=== PATIENT | female | born 1950 | race Caucasian/White ===

== ENCOUNTER → 2020-03-04 11:14 | Outpatient (BNVA) | payer MEDICARE, SELFPAY | PROVIDERS: PCP Internal Medicine; Referring Provider Internal Medicine; Visit Provider Internal Medicine Gastroenterology | DX: K21.9 Gastro-esophageal reflux disease without esophagitis (principal); Z79.899 Other long term (current) drug therapy; Z86.010 Personal history of colon polyps; Z98.890 Other specified postprocedural states | CPT/HCPCS: 99213 ==

== ENCOUNTER 2020-06-26 09:49 | Outpatient (REF) | payer MEDICARE, SELFPAY ==
--- NOTE | ~2020-06-26 | XR_ITS ---
EXAMINATION: XR CHEST CLINICAL INFORMATION: Shortness of breath COMPARISON: Chest 10/18/2018 TECHNIQUE: 2 views of the chest were obtained. FINDINGS: The lungs are well-expanded and clear of acute process. The heart size and pulmonary vascularity is normal. There are pacer electrodes in right atrium and right ventricle. There is anterior cervical fusion with a metallic plate and screws. XR/XR chest 2V IMPRESSION: Unremarkable chest exam. No major change from 10/18/2018.
[2020-06-26 11:38] LABS: Hematocrit 41.3 % (37-47); Hemoglobin 13.4 g/dl (12.0-16.0); Mean Corpuscular HGB Conc 32.4 g/dl (31.0-35.0); Mean Corpuscular Hemoglobin 32.8 pg (27.0-33.0); Mean Platelet Volume 10.3 fL (9.4-12.3); Platelet Count 299 X10*3/uL (160-400); Red Blood Count 4.09 X10*6/uL (4.20-5.50); Red Cell Distribution Width 11.9 % (11.0-16.0)
[2020-06-26 12:00] LABS: B Type Natriuretic Peptide 111 pg/mL (<100)
[2020-06-26 12:04] LABS: Anion Gap 12 (12-20); Blood Urea Nitrogen 14 mg/dL (9-16); Calcium 9.2 mg/dL (8.4-10.2); Carbon Dioxide 30 mmol/L (22-29); Chloride 105 mmol/L (96-108); Estimated Glomerular Filt Rate > 60; Glucose Random 100 mg/dL (60-115); Potassium 4.6 mmol/L (3.3-5.1); Sodium 142 mmol/L (135-145)
== END 2020-06-26 09:50 | disposition home or self-care (01) ==
LOC: HO.LAB 09:49
PROVIDERS: PCP Internal Medicine; Visit Provider Internal Medicine Cardiovascular Disease
DX: R06.02 Shortness of breath (principal); I10 Essential (primary) hypertension; I48.0 Paroxysmal atrial fibrillation; I49.5 Sick sinus syndrome; K21.9 Gastro-esophageal reflux disease without esophagitis; D12.6 Benign neoplasm of colon, unspecified; R42 Dizziness and giddiness; Z88.5 Allergy status to narcotic agent; Z88.0 Allergy status to penicillin; Z88.8 Allergy status to other drugs, medicaments and biological substances; Z91.012 Allergy to eggs; Z86.73 Personal history of transient ischemic attack (TIA), and cerebral infarction without residual deficits; Z95.0 Presence of cardiac pacemaker; Z79.899 Other long term (current) drug therapy
CPT/HCPCS: 36415; 71046; 80048; 83880; 85027; 93005; 99212

== ENCOUNTER 2020-07-05 10:46 | Outpatient (REF) | payer MEDICARE, SELFPAY ==
--- NOTE | 2020-07-05 13:07 | PFT_ITS ---
FLOWS: FEV1 of 77% of predicted at 1.67 L. FVC 76% of predicted at 2.18 L. FEV1 to FVC ratio of 0.77. No bronchodilator response. LUNG VOLUMES: Total lung capacity 98% of predicted at 4.84 L. Residual volume 123% of predicted at 2.66 L. Slow vital capacity 79% of predicted at 2.18 L. Expiratory reserve volume 15% of predicted at 0.1 L. Diffusion capacity is moderately decreased, diffusion capacity adjust to being mildly decreased after correction for alveolar ventilation. IMPRESSION: No obstructive or restrictive ventilatory defect. No bronchodilator response. Increased residual volume suggests air trapping. Decreased expiratory reserve volume suggests extrathoracic restriction likely secondary to abdominal obesity. Decreased diffusion capacity suggests emphysema. MD ANTONIA Choudhary/MODL / [id number]
== END 2020-07-05 10:47 | disposition home or self-care (01) ==
LOC: HO.RESP 10:46
PROVIDERS: PCP Internal Medicine; Visit Provider Internal Medicine Cardiovascular Disease
DX: R06.02 Shortness of breath (principal)
CPT/HCPCS: 94060; 94727; 94729

== ENCOUNTER → 2020-08-05 10:01 | Outpatient (BNVA) | payer MEDICARE, SELFPAY | PROVIDERS: PCP Internal Medicine; Visit Provider Internal Medicine Pulmonary Disease | DX: J43.9 Emphysema, unspecified (principal); R91.8 Other nonspecific abnormal finding of lung field | CPT/HCPCS: 99202 ==

== ENCOUNTER → 2020-08-07 08:26 | Outpatient (REF) | payer MEDICARE, SELFPAY ==
--- NOTE | ~2020-08-07 | NM_ITS ---
Myocardial perfusion study Indication: Shortness of breath evaluate for myocardial ischemia Technique: The patient was brought in for a Lexiscan perfusion study on 08/07/2020. Patient performed low-level exercise and was injected 0.4 mg of Lexiscan intravenously. Within a minute of injection, 25 mCi of sestamibi was given intravenously. Images were obtained using the SPECT gamma camera interlaced with the gating device. Images were obtained in supine position. Resting perfusion study was performed on 08/08/2020. Patient was administered 25 mCi of sestamibi intravenously at rest. Images were then obtained in supine position. Images obtained with and without CT attenuation. Total DLP 72 mGy-cm. Images were processed with the software and compared side to side in short axis, horizontal long axis and vertical long axis views. Findings: The stress perfusion study showed normal uptake of radiotracer in all segments of LV myocardium on attenuated as well as non attenuated corrected images. The gated study shows normal LV systolic function with calculated LVEF of greater than 70 %. LV cavity is normal in size. The gated study shows normal systolic wall thickening and contraction of segments. Resting study shows no change in perfusion pattern compared to stress perfusion study. Gating at rest reveals normal systolic wall motion with ejection fraction at greater than 70 %. The findings are consistent with normal myocardial perfusion. NM/NM phil perf SPECT rest & str Impression: 1. Myocardial perfusion imaging study shows normal myocardial perfusion 2. Gated LVEF is greater than 70% 3. Transient ischemic dilatation not present EKG is nondiagnostic for ischemia
--- NOTE | 2020-08-07 08:28 | CA_ITS ---
Transthoracic Echocardiogram Patient (Last, First, Middle): Charlotte Mcgovern M Gender: Female Date of : 1950 Age: 70 Procedure Date: 08/07/2020 Procedure Type: Transthoracic Echocardiogram Location: OP Height: 160.02 cm Weight: 70.76 kg BSA: 1.74 m2 Heart Rate: bpm BP: 136 / 92 mmHg Extrusion Press Adjuster: GORDY Referring MD: Alan Dixon MD Symptoms: R06.02 - Shortness of breath Study Quality: Good ECG Rhythm: Sinus Conclusions: - The left ventricular systolic function is normal. The visually estimated ejection fraction is between 65-70%. - There is mild mitral annular calcification. - There is mild tricuspid valve regurgitation. - Mild pulmonary hypertension is present. - Small plaque is seen in the ascending aorta. Findings Left Ventricle Normal left ventricular cavity size. There is normal left ventricular wall thickness. The left ventricular systolic function is normal. The visually estimated ejection fraction is between 65-70%. There is no evidence of regional wall motion abnormalities. E/E prime ratio is between 8 and 15 consistent with indeterminate filling pressures. Evidence suggests grade I (mild) diastolic dysfunction. There is mild focal hypertrophy of the basal septum. Right Ventricle Normal right ventricular cavity size and systolic function. There is a pacemaker wire seen in the right ventricle. Atria Both atria are normal in size. Aortic Valve There is a normal trileaflet aortic valve. There is no aortic valve stenosis. There is no aortic valve regurgitation. Mitral Valve There is mild mitral annular calcification. There is trace mitral valve regurgitation. There is no mitral valve stenosis. Pulmonic Valve The pulmonic valve was not well visualized. There is trace pulmonic valve regurgitation. Tricuspid Valve Normal tricuspid valve structure. There is mild tricuspid valve regurgitation. The right ventricular systolic pressure is 37 mmHg. Mild pulmonary hypertension is present. Great Vessels The aortic annulus, sinuses of valsalva, and asc aorta are normal in size. Small plaque is seen in the ascending aorta. Venous The inferior vena cava is normal in size and collapses greater than 50% with inspiration. Pericardium/Pleural There is no evidence of pericardial effusion. Prior Study Comparison Changes noted compared to prior study dated: 07/14/2018. RVSP is higher. Measurements 2D Linear Measurements IVSd: 0.89 0.6-0.9/0.6-1.0 cm LVIDd: 4.27 3.9-5.3/4.2-5.9 cm LVIDd Index: 2.45 2.4-3.2/2.2-3.1 cm/m2 LVIDs: 2.45 2.0-3.6 cm LVPWd: 0.86 0.7-1.1 cm Ao Root: 2.90 2.1-3.5 cm LA Diam: 3.50 2.7-3.8/3.0-4.0 cm LAIDs Index: 2.01 1.5-2.3 cm/m2 LV Mass: 145.36 67-162/88-224 g LV Mass Index: 83.54 43-95/49-115 g/m2 LVOT Diam: 2.00 3.0+(-)1.3 cm 2D Systolic Function EF 4C: 65.30 >55% EF 2C: 69.10 >55% EF BiP: 67.50 >55% Mitral Valve MV Pk E: 0.86 MV PK A: 1.07 MV Decel Time: 321.00 E/A: 0.80 E'Lateral: 8.16 E'Medial: 7.72 E/E' Med: 11.10 E/E' Lat: 10.50 PHT: 94.00 MVA PHT: 2.34 Decel Upton: 2.67 Aortic Valve AoV Pk Darren: 1.42 AoV Mn Darren: 1.05 AoV VTI: 0.33 AoV Pk Grad: 8.00 Aov Mn Grad: 5.00 NIRMAL Cont.VTI: 2.47 LVOT LVOT Pk Darren: 1.13 LVOT Mn Darren: 0.76 LVOT VTI: 0.26 LVOT Pk Grad: 5.00 LVOT Mn Grad: 3.00 LVOT Diam: 2.00 LVOT Area: 3.14 Diastolic Function MV Pk E: 0.86 MV Pk A: 1.07 E/A: 0.80 E'Medial: 7.72 E/E' Med: 11.10 E' Laterial: 8.16 E/E' Lat: 10.50 Tricuspid Valve TR Pk Darren: 2.92 TR Pk Grad: 34.00 RA Press: 3.00 RVSP: 37.00 Great Vessels Aorta Ao Root-2D: 2.90 2.0-3.7 cm Ao Asc: 2.90 2.1-3.4 cm Ao Arch: 3.00 Updated in Other Vendor System with Status of Final Alfred Porter MD electronically signed on 08/09/2020 12:02:02 PM with status of Final
--- NOTE | 2020-08-07 08:28 | CA_ITS ---
Acquisition Time: 2020-08-07 09:34:58 Total Exercise Time: 00:02:00 Test Indications: SOB, AFIB, FATIGUE Medications: SEE CHART Protocol: LEXISCAN Max HR: 110 BPM 73% of Pred: 149 BPM Max BP: 144/072 mmHG Max Work Load: 1.6 METS Pharmacological stress test using Lexiscan. Pt tolerated well. Denies any anginal sx. EKG without arrhythmias, non-diagnostic for ischemia. Nuclear images to follow. Normotensive response to test. Test reviewed with Dr. Porter Referred By: Alan Dixon Overread By: Marium West NP
== END ==
LOC: HO.CARD 08:26
PROVIDERS: PCP Internal Medicine; Visit Provider Internal Medicine Cardiovascular Disease
DX: R06.02 Shortness of breath (principal)
CPT/HCPCS: 78452; 93017; 93306; A9500; J0280; J2785

== ENCOUNTER 2020-08-14 10:36 | Outpatient (REF) | payer MEDICARE, SELFPAY ==
--- NOTE | ~2020-08-14 | CT_ITS ---
EXAMINATION: CT CHEST WITHOUT CONTRAST CLINICAL INFORMATION: Other nonspecific abnormal finding of lung field COMPARISON: Previous chest x-ray most recent June 2020 TECHNIQUE: Multidetector volumetric CT imaging of the chest was done. Axial MIP volume rendering provided. Sagittal and coronal reformatted images were obtained. This CT examination was performed using dose optimization techniques as appropriate, variously including the following: *Automated exposure control *Adjustment of mA and/or kV according to patient size (this includes techniques or standardized protocols for targeted exams where dose is matched to indication/reason for exam; i.e. extremities or head) *Use of iterative reconstruction technique DLP: 259 mGy-cm FINDINGS: LUNGS: There is a 2 mm left lower lobe nodule axial image 212 series 4. There is a 2 mm peripheral or subpleural left lower lobe nodule adjacent to the fissure axial image 217 series 4. There is minimal thickening along the right major fissure for example axial image 212 series 4. The lungs are otherwise clear. No evidence of emphysema interstitial lung disease or bronchiectasis is seen. No endobronchial or endotracheal lesion is seen. MEDIASTINUM: The heart does not appear enlarged. There is a left subclavian dual chamber pacemaker. There is no pericardial effusion. There is mild coronary artery calcification. The thoracic aorta is normal in caliber. There are small mediastinal lymph nodes. There are no enlarged hilar or mediastinal lymph nodes. The esophagus is unremarkable. PLEURA: There is no pleural effusion. No pleural mass or thickening. AXILLA: No lymphadenopathy. UPPER ABDOMEN: There is fatty infiltration of the pancreas. There is a small 5 mm low-attenuation lesion in the lateral segment of the left lobe of liver axial image 41 series 2. OSSEOUS STRUCTURES: There are mild degenerative changes of the spine. CT/CT chest wo con IMPRESSION: Small pulmonary nodules. According to the UPDATED 2017 Fleischner Society recommendations, the advised follow-up imaging for less than 6 mm nodule: Low risk, no chest CT follow-up and high risk, optional chest CT follow-up in one year. Left subclavian pacemaker. Mild coronary artery calcification. Fatty infiltration of the pancreas.
== END 2020-08-14 10:37 | disposition home or self-care (01) ==
LOC: HO.CT 10:36
PROVIDERS: Visit Provider Internal Medicine Pulmonary Disease
DX: R91.8 Other nonspecific abnormal finding of lung field (principal)
CPT/HCPCS: 71250

== ENCOUNTER → 2020-08-19 13:02 | Outpatient (BNVA) | payer MEDICARE, SELFPAY | PROVIDERS: PCP Internal Medicine; Visit Provider Internal Medicine Cardiovascular Disease | DX: Z45.018 Encounter for adjustment and management of other part of cardiac pacemaker (principal); R42 Dizziness and giddiness; R06.02 Shortness of breath; I48.0 Paroxysmal atrial fibrillation | CPT/HCPCS: 93005; 99212 ==

== ENCOUNTER → 2020-08-23 13:04 | Outpatient (BNVA) | payer MEDICARE, SELFPAY | PROVIDERS: PCP Internal Medicine; Visit Provider Internal Medicine Pulmonary Disease | DX: R06.02 Shortness of breath (principal) | CPT/HCPCS: 99212 ==

== ENCOUNTER → 2020-09-17 13:02 | Outpatient (BNVA) | payer MEDICARE, SELFPAY | PROVIDERS: PCP Internal Medicine; Visit Provider Internal Medicine Pulmonary Disease | DX: R06.02 Shortness of breath (principal) | CPT/HCPCS: 99212 ==

== ENCOUNTER → 2021-03-03 12:58 | Outpatient (BNVA) | payer MEDICARE, SELFPAY | PROVIDERS: PCP Internal Medicine; Referring Provider Internal Medicine; Visit Provider Internal Medicine Cardiovascular Disease | DX: Z45.018 Encounter for adjustment and management of other part of cardiac pacemaker (principal); I48.0 Paroxysmal atrial fibrillation; R06.02 Shortness of breath | CPT/HCPCS: 93005; 99212 ==

== ENCOUNTER → 2021-05-12 11:14 | Outpatient (BNVA) | payer MEDICARE, SELFPAY | PROVIDERS: PCP Internal Medicine; Referring Provider Internal Medicine; Visit Provider Internal Medicine Gastroenterology | DX: Z13.89 Encounter for screening for other disorder (principal) | CPT/HCPCS: 99212 ==

== ENCOUNTER 2021-05-13 11:32 | Outpatient (REF) | payer MEDICARE, SELFPAY ==
[2021-05-13 13:49] LABS: MANUAL DIFF FLAG NO
[2021-05-13 14:03] LABS: Basophils Percent Auto 0.5 % (0-2); Eosinophils Absolute Auto 0.1 X10*3/uL (0.0-0.4); Eosinophils Percent Auto 1.5 % (0-4); Hematocrit 39.7 % (37.0-47.0); Imm Gran Abs Auto 0.02 X10*3/uL (0.00-0.03); Imm Gran Pct Auto 0.2 % (0.0-0.4); Lymphocytes Absolute Auto 3.3 X10*3/uL (1.2-4.9); Lymphocytes Percent Auto 37.3 % (20-40); Mean Corpuscular HGB Conc 32.7 g/dl (31.0-35.0); Mean Corpuscular Hemoglobin 33.1 pg (27.0-33.0); Mean Platelet Volume 10.4 fL (9.4-12.3); Monocytes Percent Auto 11.3 % (2-11); Neutrophils Absolute Auto 4.4 x10*3/uL (2.0-8.3); Neutrophils Percent Auto 49.2 % (45-73); Platelet Count 285 X10*3/uL (160-400); Red Blood Count 3.93 X10*6/uL (4.20-5.50); Red Cell Distribution Width 12.2 % (11.0-16.0); White Blood Count 8.8 X10*3/uL (4.8-10.8)
[2021-05-13 14:20] LABS: Anion Gap 12 (12-20); Blood Urea Nitrogen 15 mg/dL (9-16); Calcium 9.5 mg/dL (8.4-10.2); Carbon Dioxide 28 mmol/L (22-29); Chloride 105 mmol/L (96-108); Estimated Glomerular Filt Rate > 60; Glucose Random 102 mg/dL (60-115); Potassium 4.2 mmol/L (3.3-5.1); Sodium 141 mmol/L (135-145)
[2021-05-13 14:34] LABS: Vitamin D 25-OH Total 31.8 ng/mL (>30)
[2021-05-13 14:47] LABS: Folate > 20.0 ng/mL (> or = 4.0); Vitamin B12 460 pg/mL (200-900)
== END 2021-05-13 11:33 | disposition home or self-care (01) ==
LOC: HO.HMGCLDS 11:32
PROVIDERS: PCP Internal Medicine; Visit Provider Internal Medicine Gastroenterology
DX: K21.9 Gastro-esophageal reflux disease without esophagitis (principal); R06.02 Shortness of breath
CPT/HCPCS: 36415; 80048; 82306; 82607; 82746; 85025

== ENCOUNTER → 2021-09-02 12:31 | Outpatient (BNVA) | payer MEDICARE, SELFPAY | PROVIDERS: PCP Internal Medicine; Referring Provider Internal Medicine; Visit Provider Internal Medicine Cardiovascular Disease | DX: Z45.018 Encounter for adjustment and management of other part of cardiac pacemaker (principal); I48.0 Paroxysmal atrial fibrillation; I25.10 Atherosclerotic heart disease of native coronary artery without angina pectoris | CPT/HCPCS: 93280; 99212 ==

== ENCOUNTER → 2021-09-11 11:28 | Outpatient (BNVA) | payer MEDICARE, SELFPAY | PROVIDERS: PCP Internal Medicine; Referring Provider Internal Medicine; Visit Provider Internal Medicine Gastroenterology | DX: Z12.11 Encounter for screening for malignant neoplasm of colon (principal); K59.09 Other constipation; K21.9 Gastro-esophageal reflux disease without esophagitis; D12.6 Benign neoplasm of colon, unspecified; R13.14 Dysphagia, pharyngoesophageal phase; R07.89 Other chest pain | CPT/HCPCS: 99212 ==

== ENCOUNTER 2021-10-29 08:54 | Outpatient (REF) | payer MEDICARE, SELFPAY ==
--- NOTE | ~2021-10-29 | FL_ITS ---
EXAMINATION: FL BARIUM SWALLOW CLINICAL INFORMATION: Dysphagia COMPARISON: None TECHNIQUE: Barium swallow examination is performed using fluoroscopic evaluation in addition to multiple fluoroscopic spot views. The patient is imaged both upright and prone and using both thick and thin sulfate along with effervescent granules. Fluoroscopy time: 1.6 minutes DAP: 4.110 Gy-cm2 Images: 37 FINDINGS: Following oral administration of thick barium, barium-coated turkey, there is normal propagation of bolus from the oral cavity through the pharynx, esophagus into stomach without any evidence of obstruction, narrowing or stricture. There is a ventral plate and screws from C3 to C4 and C4 through C6 vertebra but no obstruction seen. No laryngeal penetration or aspiration seen. There are dual pacer electrodes in right atrium and right ventricle. FL/FL barium swallow IMPRESSION: Unremarkable barium swallow exam. No obstruction, narrowing or stricture seen.
== END 2021-10-29 08:55 | disposition home or self-care (01) ==
LOC: HO.XRAY 08:54
PROVIDERS: PCP Internal Medicine; Visit Provider Internal Medicine Gastroenterology
DX: R13.14 Dysphagia, pharyngoesophageal phase (principal); R07.89 Other chest pain
CPT/HCPCS: 74220

== ENCOUNTER 2021-11-11 11:33 | Day surgery (SDC) | payer MEDICARE, SELFPAY ==
--- NOTE | 2021-11-10 12:18 | P.CONAN_ITS ---
Documented by User: Rocío Mcbride NP 11/10/21 12:25 HPI - Anesthesia Eval Consult details Narrative: 71yo F for Upper Endoscopy Pacer in situ Xarelto for PAF - ok to hold per cardiol Per cardiology OV note 08/2021, chest pain likely non-cardiac and pursue GI w/u. [facility] Active Problems Active Problems: All Active Problems (Updated 09/12/21 @ 17:33 by Florentin Faria MD) Chest pain, atypical (Acute) Dysphagia, pharyngoesophageal phase (Acute) CAD (coronary artery disease) (Acute) Chronic constipation (Acute) Pulmonary nodules (Acute) Dizziness (Acute) SOB (shortness of breath) (Acute) HTN (hypertension) (Acute) Paroxysmal atrial fibrillation (Acute) Cardiac pacemaker in situ (Acute) Gastroesophageal reflux disease (Acute) Tubular adenoma of colon (Acute) Screening for colon cancer (Acute) Past Medical History Medical History CAD (coronary artery disease) Cardiac pacemaker in situ CVA (cerebral vascular accident) Gastroesophageal reflux disease HTN (hypertension) Paroxysmal atrial fibrillation Pulmonary nodules Screening for colon cancer Sick sinus syndrome Tubular adenoma of colon Family History Family History Father CHF (congestive heart failure) CVA (cerebral vascular accident) Diabetes Chronic lung disease Cancer Mother CVD (cardiovascular disease) SLE exacerbation Sister Alcoholic pancreatitis Brother A-fib Daughter Morbidly obese IBS (irritable bowel syndrome) Surgical History Surgical History H/O esophagogastroduodenoscopy H/O tubal ligation History of cardiac catheterization (~2011) History of carpal tunnel release History of permanent cardiac pacemaker placement (~10/2018) Hx of cholecystectomy Hx of colonoscopy Social History Social History Alcohol intake: current Alcohol intake frequency: 0-2 drinks per day Alcohol type: wine Patient Tobacco Use Status: Former Tobacco user Quit Date: 1997 Use of substances other than those prescribed or required for medical reasons: No Are you DNR?: No Advance Directives: No Advance Directives Information Provided: Yes Meds Allergies Allergy/AdvReac Type Severity Reaction Status Date / Time Penicillins Allergy Severe ANAPHYLAXIS Verified 09/11/21 11:32 codeine [Codeine] Allergy Intermediate SEVERE Verified 09/11/21 11:32 VOMITING, vomiting ciprofloxacin [CIPROFLOXACIN] Allergy Unknown ANAPHYLAXIS Verified 09/11/21 11:32 neomycin [NEOMYCIN] Allergy Unknown BURNING Verified 09/11/21 11:32 SENSATION Home Medications Medication Instructions Recorded Confirmed Last Taken Type levothyroxine 25 mcg tablet 25 mcg PO DAILY 03/04/20 09/11/21 Unknown History valacyclovir 1 gram tablet 1,000 mg PO DAILY 03/04/20 09/11/21 Unknown History cholecalciferol (vitamin D3) 25 25 mcg PO DAILY 06/26/20 09/11/21 Unknown History mcg (1,000 unit) capsule atorvastatin 10 mg tablet 10 mg PO DAILY 03/03/21 09/11/21 Unknown History Exam Exam Date and Time: November 10, 2021 1218 Narrative Narrative: Cardiac Device Check 08/2021 Details: Dual-chamber [employer] pacemaker in place.? Programmed in DDDR at 60 beats per minute.? Atrial pacing 88% of time.? Few brief episodes of atrial fibrillation noted, overall burden less than 1% with longest episode lasting 18 minutes.? No symptoms.? Atrial pacing thresholds adequate and in our capture mode.? Ventricular pacing thresholds excellent and reprogrammed to enhance battery life.? Atrial ventricular sensing is adequate.? Pacing lead impedance is stable.? Battery life is excellent at 9 years EKG 02/2021 atrially paced, ventricularly sensed rhythm Assessment and Plan Assessment Anesthesia Assessment: Chart Reviewed Documented by User: Jose Kilgore MD 11/13/21 09:32 [facility] Past Medical History Medical History CAD (coronary artery disease) Cardiac pacemaker in situ CVA (cerebral vascular accident) Gastroesophageal reflux disease HTN (hypertension) Paroxysmal atrial fibrillation Pulmonary nodules Screening for colon cancer Sick sinus syndrome Tubular adenoma of colon Family History Family History Father CHF (congestive heart failure) CVA (cerebral vascular accident) Diabetes Chronic lung disease Cancer Mother CVD (cardiovascular disease) SLE exacerbation Sister Alcoholic pancreatitis Brother A-fib Daughter Morbidly obese IBS (irritable bowel syndrome) Family history of problems with anesthesia: No Surgical History Surgical History H/O esophagogastroduodenoscopy H/O tubal ligation History of cardiac catheterization (~2011) History of carpal tunnel release History of permanent cardiac pacemaker placement (~10/2018) Hx of cholecystectomy Hx of colonoscopy History of Problems with Anesthesia: No Social History Social History Alcohol intake: current Alcohol intake frequency: 0-2 drinks per day Alcohol type: wine Patient Tobacco Use Status: Former Tobacco user Quit Date: 1997 Use of substances other than those prescribed or required for medical reasons: No Are you DNR?: No Advance Directives: No Advance Directives Information Provided: Yes Meds Allergies Allergy/AdvReac Type Severity Reaction Status Date / Time Penicillins Allergy Severe ANAPHYLAXIS Verified 09/11/21 11:32 codeine [Codeine] Allergy Intermediate SEVERE Verified 09/11/21 11:32 VOMITING, vomiting ciprofloxacin [CIPROFLOXACIN] Allergy Unknown ANAPHYLAXIS Verified 09/11/21 11:32 neomycin [NEOMYCIN] Allergy Unknown BURNING Verified 09/11/21 11:32 SENSATION Home Medications Medication Instructions Recorded Confirmed Last Taken Type levothyroxine 25 mcg tablet 25 mcg PO DAILY 03/04/20 09/11/21 Unknown History valacyclovir 1 gram tablet 1,000 mg PO DAILY 03/04/20 09/11/21 Unknown History cholecalciferol (vitamin D3) 25 25 mcg PO DAILY 06/26/20 09/11/21 Unknown History mcg (1,000 unit) capsule atorvastatin 10 mg tablet 10 mg PO DAILY 03/03/21 09/11/21 Unknown History Exam Airway Mallampati Class: II TM Dist: >3cm Loose/Missing/Broken Teeth: Yes Assessment and Plan Assessment Anesthesia Assessment: Anesthesia Plan Discussed Final Anesthetic Review Family History of Problems with Anesthesia: No History of Problems with Anesthesia: No NPO: Yes ASA Class: III Final Preanesthetic Review: No Changes in Pt Med Stat, Meds/Allgs Chart Reviewed, Consent Obtained/Reviewed and Anes Risks/Benef Reviewed Patient Risk: Intermediate Procedure Risk: Low Anesthetic Plan Anesthetic Plan: MAC: Disposition: Standard PACU
[2021-11-11 11:52] VITALS: BMI 28.0
[2021-11-11 11:55] VITALS: BP 135/87; PULSE 70; RESP 18; TEMP 36.3; O2SAT 97
[2021-11-11] MEDS: Lactated Ringers 1,000 ML 50 ML IVCONT (12:03)
--- NOTE | 2021-11-11 12:57 | MHC.SHP ---
Pre-Procedural Eval Section A Date of Service: 11/11/21 The patient is an INPATIENT: No The History & Physical has been completed within 30 days and I have reviewed it.: No Section B Chief Complaint: Other chest pain,Dysphagia, pharyngoesophageal Details of Present Illness: dysphagia, chest pain Relevant Family History (Specify if Yes): No Relevant Social History: None Present Medications: see Short Stay Collaborative assessment Medical History: Significant History (CAD (coronary artery disease) Cardiac pacemaker in situ CVA (cerebral vascular accident) Gastroesophageal reflux disease HTN (hypertension) Paroxysmal atrial fibrillation Screening for colon cancer Sick sinus syndrome Tubular adenoma of colon) History of Previous Operations: Relevant previous surgery/procedure and date(s) (H/O esophagogastroduodenoscopy H/O tubal ligation History of cardiac catheterization (~2011) History of carpal tunnel release History of permanent cardiac pacemaker placement (~10/2018) Hx of cholecystectomy Hx of colonoscopy) Allergies: Allergies Allergy/AdvReac Type Severity Reaction Status Date / Time Penicillins Allergy Severe ANAPHYLAXIS Verified 09/11/21 11:32 codeine [Codeine] Allergy Intermediate SEVERE Verified 09/11/21 11:32 VOMITING, vomiting ciprofloxacin [CIPROFLOXACIN] Allergy Unknown ANAPHYLAXIS Verified 09/11/21 11:32 neomycin [NEOMYCIN] Allergy Unknown BURNING Verified 09/11/21 11:32 SENSATION Review of Systems Sugical H&P ROS: Negative: Constitution, Cardiovascular and Respiratory and Yes, Specify: Gastrointestinal (dysphagia) Exam Surgical H&P Exam: Normal: Heart, Normal: Lungs, Normal: Extremities and Normal: Abdomen Plan Diagnosis/Plan: Unchanged I have reviewed the history and physical and performed a pertinent physical examination on my patient. No changes have occurred unless specified.
--- NOTE | 2021-11-11 13:51 | P.BOP_ITS ---
Brief Operative Note Date of Service: 11/11/21 Pre-op diagnosis: Atypical CP, dysphagia Post-op diagnosis: other (GERD, gastritis, multiple gastric polyps) Procedure: FLEXIBLE TRANSORAL UPPER GASTROINTESTINAL ENDOSCOPY WITH BIOPSIES AND ESOPHAGEAL BALLOON DILATION Consent: Indications for the procedure and potential complications of bleeding, perforation, reaction to medications and missed diagnosis were discussed with the patient and informed consent was obtained. Instrument: Olympus GIF H 190 mid size upper endoscope Monitoring: Vital signs and clinical assessment, continuous EKG monitoring, Pulse oximetry, Carbon Dioxide monitoring and blood pressure monitoring were done throughout the procedure. Procedure: The patient was placed in the left lateral decubitis position and pre-procedure medications were administered and a bite block was placed. The endoscope was inserted into the mouth and advanced under direct vision to the third part of duodenum. A careful inspection was made as the upper endoscope was withdrawn including a retroflexed examination of the proximal stomach; Findings and interventions are described below. Findings: Larynx: Normal Esophagus: GE junction at 38 cms. No stricture, ring, esophagitis or Owens's. Biopsies Were obtained from proximal esophagus to check for EOE. Esophageal balloon dilation was performed with a 20 mm (60 F) CRE balloon X 60 sec Stomach: Multiple 1 to 2 cms benign appearing polyps in the gastric body and fundus - biopsied. Mild gastric erythema. Biopsies were obtained. Grade 2 flap valve on retroflexed examination of the cardia. Duodenum: Normal bulb and descending duodenum Intervention: Biopsies and esophageal balloon dilation as noted above Impression and Post Procedure Diagnosis: Endoscopy Findings: ESOPHAGUS: GE junction at 38 cms. No stricture, ring, esophagitis or Owens's. Biopsies Were obtained from proximal esophagus to check for EOE. Esophageal balloon dilation was performed with a 20 mm (60 F) CRE balloon X 60 sec STOMACH: Gastritis and multiple gastric polyps Plan: Await pathology results Patient has an appointment on 02/05/22 in the GI Clinic with Florentin Faria M.D. Above findings were reviewed with the patient and [GERD] and [Gastritis] handouts were given in the discharge area Surgeon: Florentin Faria MD Anesthesia: MAC Was an Simulation Software Engineer used for this Procedure?: Yes Simulation Software Engineer: Shahida Stein Estimated blood loss (mL): 0 Pathology: other (A. antral bxs, R/O H. pylori B. gastric polyps C. proximal esophagus, R/O EoE) Condition: stable Disposition: PACU
[2021-11-11 14:16] VITALS: BP 120/49; PULSE 70; RESP 16; TEMP 36.4; O2SAT 98
[2021-11-11 14:31] VITALS: BP 115/74; PULSE 70; RESP 17; TEMP 36.4; O2SAT 98
--- NOTE | 2021-11-11 17:00 | P.OP_ITS ---
Operative Note Operative Note Date of Service: 11/11/21 Narrative: Pre-op diagnosis: Atypical CP, dysphagia Post-op diagnosis:?other (GERD, gastritis, multiple gastric polyps) Procedure: FLEXIBLE TRANSORAL UPPER GASTROINTESTINAL ENDOSCOPY WITH BIOPSIES AND ESOPHAGEAL BALLOON DILATION Consent:?Indications for the procedure and potential complications of bleeding, perforation, reaction to medications and missed diagnosis were discussed with the patient and informed consent was obtained. Instrument:?Olympus GIF H 190 mid size upper endoscope Monitoring: Vital signs and clinical assessment, continuous EKG monitoring, Pulse oximetry, Carbon Dioxide monitoring and blood pressure monitoring were done throughout the procedure. Procedure:?The patient was placed in the left lateral decubitis position and pre-procedure medications were administered and a bite block was placed. The endoscope was inserted into the mouth and advanced under direct vision to the third part of duodenum. A careful inspection was made as the upper endoscope was withdrawn including a retroflexed examination of the proximal stomach; Findings and interventions are described below. Findings: Larynx:? Normal Esophagus: GE junction at 38 cms. No stricture, ring, esophagitis or Owens's. Biopsies ? Were obtained from proximal esophagus to check for EOE.? Esophageal balloon dilation was performed with a 20 mm (60 F) CRE balloon X 60 sec Stomach: Multiple 1 to 2 cms benign appearing polyps in the gastric body and fundus - biopsied. Mild gastric erythema. Biopsies were obtained. Grade 2 flap valve on retroflexed examination of the cardia. Duodenum: Normal bulb and descending duodenum Intervention: Biopsies and? esophageal balloon dilation as noted above Impression and Post Procedure Diagnosis: Endoscopy Findings: ESOPHAGUS: GE junction at 38 cms. No stricture, ring, esophagitis or Owens's. Biopsies ? Were obtained from proximal esophagus to check for EOE.? Esophageal balloon dilation was performed with a 20 mm (60 F) CRE balloon X 60 sec STOMACH:? Gastritis and multiple gastric polyps Plan: Await pathology results Patient has an appointment on 02/05/22 in the [facility] with Florentin Faria M.D. Above findings were reviewed with the patient and [GERD] and [Gastritis] handouts were given in the discharge area Surgeon: Florentin Faria MD Anesthesia:?MAC Was an Cartridge Loading Operator used for this Procedure?:?Yes Cartridge Loading Operator:?Shahida Stein Estimated blood loss (mL):?0 Pathology:?other (A. antral bxs, R/O H. pylori? B. gastric polyps? C. proximal esophagus, R/O EoE) Condition:?stable Disposition:?PACU
== END 2021-11-11 15:00 | disposition home or self-care (01) ==
PROVIDERS: PCP Internal Medicine; Visit Provider Internal Medicine Gastroenterology
PROC: 0DJ08ZZ Inspection of Upper Intestinal Tract, Via Natural or Artificial Opening Endoscopic (ICD-10-PCS; CPT 43235; principal; 2021-11-11 12:40)
DX: R13.14 Dysphagia, pharyngoesophageal phase (principal); R07.89 Other chest pain; K31.7 Polyp of stomach and duodenum; K21.9 Gastro-esophageal reflux disease without esophagitis; K29.50 Unspecified chronic gastritis without bleeding; I48.20 Chronic atrial fibrillation, unspecified; Z79.01 Long term (current) use of anticoagulants; Z95.0 Presence of cardiac pacemaker; I49.5 Sick sinus syndrome; I10 Essential (primary) hypertension; Z79.899 Other long term (current) drug therapy; Z88.0 Allergy status to penicillin; Z88.1 Allergy status to other antibiotic agents; Z88.8 Allergy status to other drugs, medicaments and biological substances; Z90.49 Acquired absence of other specified parts of digestive tract
CPT/HCPCS: 43249; 43239; 88305; 88342; C1726; J3010

== ENCOUNTER → 2022-02-05 11:17 | Outpatient (BNVA) | payer MEDICARE, SELFPAY | PROVIDERS: PCP Internal Medicine; Visit Provider Internal Medicine Gastroenterology | DX: R13.14 Dysphagia, pharyngoesophageal phase (principal); K59.09 Other constipation; K21.9 Gastro-esophageal reflux disease without esophagitis; K31.A19 Gastric intestinal 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, unspecified site; R07.89 Other chest pain; D12.6 Benign neoplasm of colon, unspecified | CPT/HCPCS: 99212 ==

== ENCOUNTER → 2022-07-30 11:19 | Outpatient (BNVA) | payer MEDICARE, SELFPAY | PROVIDERS: PCP Family Medicine; Visit Provider Internal Medicine Gastroenterology | DX: Z12.11 Encounter for screening for malignant neoplasm of colon (principal); D12.6 Benign neoplasm of colon, unspecified; K31.A19 Gastric intestinal 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, unspecified site; K59.09 Other constipation; K21.9 Gastro-esophageal reflux disease without esophagitis; R13.14 Dysphagia, pharyngoesophageal phase | CPT/HCPCS: 99212 ==

== ENCOUNTER 2022-08-15 15:57 | Emergency (ER) | payer MEDICARE, SELFPAY ==
--- NOTE | ~2022-08-15 | CT_ITS ---
EXAMINATION: CT ABDOMEN AND PELVIS WITH CONTRAST CLINICAL INFORMATION: Epigastric pain COMPARISON: CT chest 08/14/2020 TECHNIQUE: Multidetector volumetric images were obtained from the superior aspect of the liver through the pubic symphysis following administration 85 mL of Omnipaque 350 intravenous contrast. Sagittal and coronal reformatted images were obtained on the technologist's workstation. Oral contrast: No This CT examination was performed using dose optimization techniques as appropriate, variously including the following: *Automated exposure control *Adjustment of mA and/or kV according to patient size (this includes techniques or standardized protocols for targeted exams where dose is matched to indication/reason for exam; i.e. extremities or head) *Use of iterative reconstruction technique DLP: 468 mGy-cm FINDINGS: LUNG BASES: Partially imaged cardiac pacer leads. Mitral annular calcifications. ABDOMINAL AND PELVIC WALL: Unremarkable. LIVER AND BILIARY TREE: Subcentimeter left hepatic lobe simple cyst. A 1.4 cm soft tissue nodule exophytic from the posterior margin of the right hepatic lobe, of indeterminate etiology. Hypoattenuating hepatic parenchyma compatible with hepatic steatosis. GALLBLADDER: Status post cholecystectomy with trace central intrahepatic biliary duct dilatation which may be related to the sequelae of the postcholecystectomy state. PANCREAS: Atrophic pancreas. SPLEEN: Unremarkable. ADRENAL GLANDS: Unremarkable. KIDNEYS AND URETERS: Unremarkable. GASTROINTESTINAL TRACT: Small hiatal hernia. Large and small bowel are unremarkable. The appendix is not identified however there are no secondary findings of appendicitis. VASCULAR: Unremarkable. LYMPH NODES/PERITONEUM: No lymphadenopathy. FREE FLUID: None. BLADDER: Unremarkable. PELVIC VISCERA: Unremarkable. OSSEOUS STRUCTURES: Unremarkable. CT/CT abdomen pelvis w IV con IMPRESSION: No acute findings to extent symptoms of abdominal pain. A 1.4 cm nonspecific soft tissue nodule exophytic from the posterior margin of the right hepatic lobe, of indeterminate etiology. Recommend further evaluation with contrast-enhanced MR abdomen if there is no outside prior imaging available for comparison to assess stability. .
--- NOTE | ~2022-08-15 | XR_ITS ---
EXAMINATION: XR CHEST CLINICAL INFORMATION: Chest pain COMPARISON: Previous chest x-ray June [address] July 2020 TECHNIQUE: Frontal view of the chest was obtained. FINDINGS: The cardiac and mediastinal contours are stable. There is a left subclavian dual chamber pacemaker that appears unchanged. There is increased attenuation in the right upper lobe. This may be related to overlapping right anterior first rib and posterior fifth rib and vascular structures. The lungs are otherwise clear. There is no pleural effusion or pneumothorax. There are postsurgical changes to the cervical spine. XR/XR chest 1V IMPRESSION: Increased attenuation in the right upper lobe, question related to overlapping bony and vascular structures. Follow-up by PA and lateral chest or apical lordotic view recommended.
[2022-08-15 16:11] VITALS: BP 138/80; BP 167/76; PULSE 69; PULSE 70; RESP 16; TEMP 37.2; O2SAT 98; O2SAT 99; BMI 28.3
--- NOTE | 2022-08-15 16:35 | ECG_ITS ---
Test Reason : chest pain Blood Pressure : / mmHG Vent. Rate : 071 BPM Atrial Rate : 071 BPM P-R Int : 212 ms QRS Dur : 072 ms QT Int : 408 ms P-R-T Axes : 000 043 056 degrees QTc Int : 443 ms Atrial-paced rhythm with prolonged AV conduction Abnormal ECG When compared with ECG of 03-SEP-2011 09:45, Electronic atrial pacemaker has replaced Sinus rhythm Referred By: Bhavana Polk Electronically Signed By:QI GAONA
--- NOTE | 2022-08-15 16:39 | ED_ITS ---
HPI - Abdominal Pain General Chief Complaint: Abdominal Pain Stated Complaint: upper l abdominal pain Time Seen by Provider: 08/15/22 16:14 History of Present Illness HPI narrative: Patient is a 72-year-old female presents today with having epigastric pain ongoing for the last 24 hours. The pain is nonradiating. It is localized. Not associated with any diarrhea. Positive vomiting. No fever no chills. No focal weakness. No chest pain or shortness of breath no diaphoresis. Positive history of coronary artery disease. Status post cholecystectomy. Status post adenoma removed from her colon. Patient denies any history of kidney stone. She she is on home. No recent travel. Related Data Home Medications Medication Instructions Recorded Confirmed levothyroxine 25 mcg tablet 25 mcg PO DAILY 03/04/20 07/30/22 valacyclovir 1 gram tablet 1,000 mg PO DAILY 03/04/20 07/30/22 cholecalciferol (vitamin D3) 25 25 mcg PO DAILY 06/26/20 07/30/22 mcg (1,000 unit) capsule atorvastatin 10 mg tablet 10 mg PO DAILY 03/03/21 07/30/22 estradiol 0.01% (0.1 mg/gram) g vaginal 07/30/22 07/30/22 vaginal cream hydrocodone 5 mg-acetaminophen 325 1 tab PO BID PRN 07/30/22 07/30/22 mg tablet ondansetron HCl 4 mg tablet 4 mg PO Q8H PRN vomiting 07/30/22 07/30/22 Previous Rx's Medication Instructions Recorded metoprolol succinate 25 mg 25 mg PO DAILY #30 tabs 03/02/22 tablet,extended release 24 hr rivaroxaban 20 mg tablet (Xarelto) 20 mg PO DAILY #90 tabs 04/30/22 omeprazole 20 mg capsule,delayed 20 mg PO BID 90 days #180 caps 06/08/22 release linaclotide 72 mcg capsule 72 mcg PO QAM 90 days #90 caps 07/30/22 (Linzess) sulfamethoxazole 800 1 tab PO BID #20 tabs 08/16/22 mg-trimethoprim 160 mg tablet (Bactrim DS) Allergies Allergy/AdvReac Type Severity Reaction Status Date / Time Penicillins Allergy Severe ANAPHYLAXIS Verified 08/15/22 14:35 codeine [Codeine] Allergy Intermediate SEVERE Verified 08/15/22 14:35 VOMITING, vomiting ciprofloxacin [CIPROFLOXACIN] Allergy Unknown ANAPHYLAXIS Verified 08/15/22 14:35 neomycin [NEOMYCIN] Allergy Unknown BURNING Verified 08/15/22 14:35 SENSATION Review of Systems Review of Systems Positive nausea vomiting right upper quadrant pain PMFSH Past Medical History Attestation statement: The following information was validated with the patient. Medical History CAD (coronary artery disease) Cardiac pacemaker in situ CVA (cerebral vascular accident) Gastroesophageal reflux disease HTN (hypertension) Paroxysmal atrial fibrillation Pulmonary nodules Screening for colon cancer Sick sinus syndrome Tubular adenoma of colon Surgical History H/O esophagogastroduodenoscopy H/O tubal ligation History of cardiac catheterization (~2011) History of carpal tunnel release History of permanent cardiac pacemaker placement (~10/2018) Hx of cholecystectomy Hx of colonoscopy Hx of endoscopy Family History Family History Father CHF (congestive heart failure) CVA (cerebral vascular accident) Diabetes Chronic lung disease Cancer Mother CVD (cardiovascular disease) SLE exacerbation Sister Alcoholic pancreatitis Brother A-fib Daughter Morbidly obese IBS (irritable bowel syndrome) Social History Social History Alcohol intake: current Alcohol intake frequency: 0-2 drinks per day Alcohol type: wine Patient Tobacco Use Status: Former Tobacco user Quit Date: 1997 Advance Directives: No Advance Directives Information Provided: Yes Physical Exam ED Vital Signs: Vital Signs - 24 hr 08/15/22 16:11 08/15/22 18:01 08/15/22 20:37 Temperature 99.0 F 98.0 F Pulse Rate 70 70 73 Respiratory Rate 16 11 L 17 Blood Pressure 167/76 H 157/56 H 134/49 L Pulse Oximetry 99 97 96 Oxygen Delivery Method Room Air Room Air Room Air BMI result Body Mass Index 28.3 Appearance: Alert. Oriented X3. No acute distress. Eyes: Pupils equal, round and reactive to light. ENT: Pharynx normal. Neck: Normal inspection. Neck supple. No lymph nodes noted. No crepitus CVS: Normal heart rate and rhythm. Pulses normal. Normal S1 and S2 Respiratory: No respiratory distress. Breath sounds normal. No Wheezing. No rales Abdomen: Positive right upper quadrant tenderness. No rigidity. No distention. good BS x4 Skin: Skin warm and dry. Normal skin color. Normal skin turgor. Extremities: No lower extremity edema. Neurovascular intact to all extremities. No Lacerations. No Rash Neuro: Oriented X 3. No motor deficit. No sensory deficit. Moving all extermities. No slurred speech Medical Decision Making Lab Data 08/15/22 17:07 08/15/22 17:07 Labs: Lab Results 08/15/22 08/15/22 08/15/22 Range/Units 17: 17: 23:20 WBC 13.8 H (4.8-10.8) X10*3/uL RBC 3.86 L (4.20-5.50) X10*6/uL Hgb 12.7 (12.0-16.0) g/dl Hct 36.6 L (37.0-47.0) % MCV 94.8 (80.0-98.0) fL MCH 32.9 (27.0-33.0) pg MCHC 34.7 (31.0-35.0) g/dl RDW 11.6 (11.0-16.0) % Plt Count 291 (160-400) X10*3/uL MPV 10.0 (9.4-12.3) fL Immature Gran % (Auto) 0.9 H (0.0-0.4) % Neut % (Auto) 65.6 (45-73) % Lymph % (Auto) 23.7 (20-40) % Whiteside % (Auto) 9.3 (2-11) % Eos % (Auto) 0.3 (0-4) % Baso % (Auto) 0.2 (0-2) % Lymph # (Auto) 3.3 (1.2-4.9) X10*3/uL [place] # (Auto) 1.3 H (0.1-1.2) X10*3/uL Eos # (Auto) 0.0 (0.0-0.4) X10*3/uL Baso # (Auto) 0.0 (0.0-0.2) X10*3/uL Abs Immat Gran (auto) 0.13 H (0.00-0.03) X10*3/uL Absolute Neuts (auto) 9.1 H (2.0-8.3) x10*3/uL Absolute Nucleated RBC 0.000 (0.0-0.012) X10*3/uL Nucleated RBC % (auto) 0.0 (0.0-0.2) /100WBC Sodium 134 L (135-145) mmol/L Potassium 3.6 (3.3-5.1) mmol/L Chloride 100 (96-108) mmol/L Carbon Dioxide 25 (22-29) mmol/L Anion Gap 13 (12-20) BUN 11 (9-16) mg/dL Creatinine 0.62 (0.5-1.4) mg/dL Estim Creat Clear Calc 80.1 Estimated GFR > 60 Random Glucose 111 (60-115) mg/dL Calcium 8.8 D (8.4-10.2) mg/dL Total Bilirubin 0.7 (0.0-1.0) mg/dL Direct Bilirubin 0.2 (0.0-0.5) mg/dL AST 18 (5-31) U/L ALT 12 (0-31) U/L Alkaline Phosphatase 46 (39-117) U/L Total Protein 6.5 (6.5-8.0) g/dL Albumin 4.0 (3.5-5.0) g/dL Lipase 12 (8-78) U/L Urine Color Yellow Urine Appearance Clear Urine pH 7.0 (5.0-9.0) Ur Specific [place] >= 1.030 H (1.005-1.025) Urine Protein Negative (Neg-Trace) mg/dL Urine Glucose (UA) Negative (Negative) mg/dL Urine Ketones Trace (Negative) mg/dL Urine Blood Negative (Negative) Urine Nitrite Negative (Negative) Ur Leukocyte Esterase Small (1+) H (Negative) Urine RBC 0-2 (0-2) /HPF Urine WBC 11-20 H (0-5) /HPF Ur Squamous Epith Cells 3-5 (0-2) /HPF Urine Bacteria Trace (None Seen) Hyaline Casts 0-2 (0-2) /LPF Medications Administered Discontinued Medications Generic Name Dose Route Start Last Admin Trade Name Freq PRN Reason Stop Dose Admin Hydromorphone HCl 0.5 mg 08/15/22 16:35 08/15/22 17:21 Hydromorphone Hcl 0.5 Mg/0.5 Ml Syringe IVPUSH 08/15/22 16:36 0.5 mg ONCE ONE Administration Protocol Sodium Chloride 1,000 mls @ 999 mls/hr 08/15/22 16:45 08/15/22 19:14 Ns IV 08/15/22 17:45 Infused .Q1H1M DAVIN Infusion Sodium Chloride 1,000 mls @ 999 mls/hr 08/15/22 21:15 08/15/22 23:00 Ns IV 08/15/22 22:15 Infused .Q1H1M DAVIN Infusion Iohexol 100 ml 08/15/22 17:54 08/15/22 17:54 Iohexol 350 Mg/Ml 100 Ml Infus..Btl IV 08/15/22 17:55 85 ml ONCE ONE Administration Ondansetron HCl 4 mg 08/15/22 16:35 08/15/22 17:21 Ondansetron Hcl 4 Mg/2 Ml Vial IVPUSH 08/15/22 16:36 4 mg ONCE ONE Administration Ondansetron HCl 4 mg 08/15/22 20:30 08/15/22 20:35 Ondansetron Hcl 4 Mg/2 Ml Vial IVPUSH 08/15/22 20:31 4 mg ONCE ONE Administration Discharge Plan Discharge Clinical Impression: Abdominal pain, Urinary tract infection Patient Disposition: Home, Self-Care Instructions: Abdominal Pain (ED), Urinary Tract Infection in Older Adults (ED) Prescriptions: New sulfamethoxazole-trimethoprim [Bactrim DS] 800-160 mg tablet 1 tab PO BID Qty: 20 0RF No Action metoprolol succinate 25 mg tablet extended release 24 hr 25 mg PO DAILY Qty: 30 0RF Rx Instructions: Please schedule an appt Dr. Dixon in order to continue to receiving future refills; [phone]. Xarelto 20 mg tablet 20 mg PO DAILY Qty: 90 3RF omeprazole 20 mg capsule,delayed release(DR/EC) 20 mg PO BID 90 Days Qty: 180 0RF Linzess 72 mcg capsule 72 mcg PO QAM 90 Days Qty: 90 3RF levothyroxine 25 mcg tablet 25 mcg PO DAILY valacyclovir 1 gram tablet 1,000 mg PO DAILY atorvastatin 10 mg tablet 10 mg PO DAILY cholecalciferol (vitamin D3) 25 mcg (1,000 unit) capsule 25 mcg PO DAILY hydrocodone-acetaminophen 5-325 mg tablet 1 tab PO BID PRN ondansetron HCl 4 mg tablet 4 mg PO Q8H PRN (Reason: vomiting) estradiol 0.01 % (0.1 mg/gram) cream vaginal
[2022-08-15 17:10] LABS: MANUAL DIFF FLAG NO
[2022-08-15] MEDS: 0.9 % Sodium Chloride 1,000 ML 999 ML IV ×2 (17:21→21:40)
[2022-08-15] MEDS: ondansetron HCL 4 MG/2 ML VIAL IVPUSH ×2 (17:21→20:35)
[2022-08-15] MEDS: HYDROmorphone HCl 0.5 MG/0.5 ML SYRINGE IVPUSH (17:21)
[2022-08-15 17:22] LABS: Basophils Percent Auto 0.2 % (0-2); Eosinophils Percent Auto 0.3 % (0-4); Hematocrit 36.6 % (37.0-47.0); Hemoglobin 12.7 g/dl (12.0-16.0); Imm Gran Abs Auto 0.13 X10*3/uL (0.00-0.03); Imm Gran Pct Auto 0.9 % (0.0-0.4); Lymphocytes Absolute Auto 3.3 X10*3/uL (1.2-4.9); Lymphocytes Percent Auto 23.7 % (20-40); Mean Corpuscular HGB Conc 34.7 g/dl (31.0-35.0); Mean Corpuscular Hemoglobin 32.9 pg (27.0-33.0); Mean Corpuscular Volume 94.8 fL (80.0-98.0); Monocytes Absolute Auto 1.3 X10*3/uL (0.1-1.2); Monocytes Percent Auto 9.3 % (2-11); Neutrophils Absolute Auto 9.1 x10*3/uL (2.0-8.3); Neutrophils Percent Auto 65.6 % (45-73); Platelet Count 291 X10*3/uL (160-400); Red Blood Count 3.86 X10*6/uL (4.20-5.50); Red Cell Distribution Width 11.6 % (11.0-16.0); White Blood Count 13.8 X10*3/uL (4.8-10.8)
[2022-08-15 17:34] LABS: Alanine Aminotransferase 12 U/L (0-31); Alkaline Phosphatase 46 U/L (39-117); Anion Gap 13 (12-20); Aspartate Amino Transferase 18 U/L (5-31); Bilirubin Direct 0.2 mg/dL (0.0-0.5); Bilirubin Total 0.7 mg/dL (0.0-1.0); Blood Urea Nitrogen 11 mg/dL (9-16); Calcium 8.8 mg/dL (8.4-10.2); Carbon Dioxide 25 mmol/L (22-29); Chloride 100 mmol/L (96-108); Creatinine Clr Calc Pharmacy 80.1; Estimated Glomerular Filt Rate > 60; Glucose Random 111 mg/dL (60-115); Lipase 12 U/L (8-78); Potassium 3.6 mmol/L (3.3-5.1); Sodium 134 mmol/L (135-145); Total Protein 6.5 g/dL (6.5-8.0)
[2022-08-15] MEDS: iohexoL 350 MG/ML 100 ML INFUS..BTL IV (17:54)
[2022-08-15 18:01] VITALS: BP 157/56; PULSE 70; RESP 11; O2SAT 97
--- NOTE | 2022-08-15 18:47 | PC.NURSE ---
Continues to have pain upon movement with some nausea upon movement. Pain medications effective, still having some pain. Resting quietly in room with call mesa in reach.
--- NOTE | 2022-08-15 19:16 | PC.NURSE ---
assumed care of pt aox4 no apparent distress resting quietly
--- NOTE | 2022-08-15 19:57 | PC.NURSE ---
pt nauseous aware meds to follow
[2022-08-15 20:37] VITALS: BP 134/49; PULSE 73; RESP 17; TEMP 36.7; O2SAT 96
--- NOTE | 2022-08-15 22:36 | PC.NURSE ---
reminded pt urine sample needed
[2022-08-15 23:26] LABS: Appearance Urine Clear; Color Urine Yellow; Glucose Urine UA Negative (Negative); Leukocyte Esterase Urine Small (1+) (Negative); Nitrite Urine Negative (Negative); Specific Gravity - Urine >= 1.030 (1.005-1.025); UMIC TRIGGER UACC YES; Urine Blood Negative (Negative); Urine Ketones Trace mg/dL (Negative); Urine Protein Negative (Neg-Trace)
[2022-08-15 23:31] LABS: Bacteria Urine Trace (None Seen); Hyaline Casts Urine 0-2 /LPF (0-2); RBC Urine 0-2 /HPF (0-2); UACC Culture Trigger YES
--- NOTE | 2022-08-16 00:40 | PC.NURSE ---
pt resting quietly no apparent distress daughter at bedside
[2022-08-16] MEDS: Sulfamethox/Trimeth 800/160 TABLET 1 TAB PO (01:13)
--- NOTE | 2022-08-16 01:37 | PC.NURSE ---
Discharge instructions given and explained to patient No apparent distress Patient ambulates safely and independently All of patient's questions answered IV cath intact upon removal
== END 2022-08-16 01:36 | disposition home or self-care (01) ==
PROVIDERS: Emergency Provider Emergency Medicine Emergency Medical Services; PCP Family Medicine
DX: R10.9 Unspecified abdominal pain (principal); N39.0 Urinary tract infection, site not specified; I10 Essential (primary) hypertension; I48.0 Paroxysmal atrial fibrillation; Z95.0 Presence of cardiac pacemaker; Z79.899 Other long term (current) drug therapy; Z79.02 Long term (current) use of antithrombotics/antiplatelets; Z79.01 Long term (current) use of anticoagulants
CPT/HCPCS: 36415; 71045; 74177; 80048; 80076; 81001; 83690; 85025; 87086; 93005; 96361; 96374; 96375; 96376; 99284; 99285; J1170; J2405; Q9967

== ENCOUNTER → 2022-09-07 08:51 | Outpatient (BNVA) | payer MEDICARE, SELFPAY | PROVIDERS: PCP Family Medicine; Visit Provider Internal Medicine Gastroenterology | DX: K31.A19 Gastric intestinal 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, unspecified site (principal); K59.09 Other constipation; K21.9 Gastro-esophageal reflux disease without esophagitis; K76.9 Liver disease, unspecified; Z12.11 Encounter for screening for malignant neoplasm of colon; D12.6 Benign neoplasm of colon, unspecified; R07.89 Other chest pain; R13.14 Dysphagia, pharyngoesophageal phase | CPT/HCPCS: 99212 ==

== ENCOUNTER 2022-10-15 11:00 | Outpatient (REF) | payer MEDICARE, SELFPAY ==
--- NOTE | ~2022-10-15 | MR_ITS ---
EXAMINATION: MRI ABDOMEN WITH AND WITHOUT CONTRAST CLINICAL INFORMATION: Intermittent right upper quadrant pain and 1.4 cm soft tissue nodule exophytic from the posterior margin of the right hepatic lobe. COMPARISON: 08/15/2022 CT scan TECHNIQUE: Multiple routine MRI sequences through the abdomen were obtained on a high-field 1.5Tesla MRI. Pre-and postcontrast images with 7 mL of Gadavist intravenous contrast were obtained. This included a dynamic contrast-enhanced technique. FINDINGS: Lung bases: The visualized lung bases are unremarkable. Liver: The liver is normal in size, shape, and signal. No suspicious focal hepatic lesions seen. Specifically no suspicious arterial phase enhancing lesions or suspicious washout of contrast on later phases. No biliary ductal dilatation. There is a T2 bright nonenhancing subcapsular cyst along the posterior right lobe the liver measuring up to 1.4 cm in maximal diameter. This corresponds with a subtle abnormality seen on the recent CT scan. There is no abnormal enhancement or surrounding enhancement to this small cystic structure. Gallbladder: Surgically absent Pancreas: Atrophic Spleen: Unremarkable Adrenals: Unremarkable Kidneys: Kidneys are normal in size, shape, and signal. No suspicious renal mass lesion seen. No hydronephrosis or perinephric edema. Other: No bulky adenopathy MR/MR abdomen wo/w con IMPRESSION: There is a 1.4 cm T2 bright nonenhancing pericapsular cyst along the posterior right lobe of the liver. This corresponds with the subtle abnormality seen on the recent CT scan. There is no abnormal enhancement or surrounding enhancement to this small cyst. This is of unlikely clinical significance. I do not have any prior images of this area for more remote comparison.
== END 2022-10-15 11:01 | disposition home or self-care (01) ==
LOC: HO.MRI 11:00
PROVIDERS: PCP Family Medicine; Visit Provider Internal Medicine Gastroenterology
DX: K76.9 Liver disease, unspecified (principal)
CPT/HCPCS: 74183; A9585

== ENCOUNTER 2022-12-17 10:15 | Outpatient (AMB) | payer MEDICARE, SELFPAY ==
--- NOTE | 2022-12-17 10:23 | MHC.OFFVIS ---
Intake Vital Signs 12/17/22 10:24 Height 5 ft 3 in Weight 158 lb BMI 28.0 BP 134/62 Blood Pressure Location Lt brachial Position Sitting Pulse 71 Intake Visit Reasons: 3 month follow up Intake Note: Patient follow up for abdominal pain, and abdominal MRI results. Patient cc: loose stool, acid reflex with a weird plastic or mouth taste. Denies any other GI issues. 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: No Allergies Penicillins Allergy (Severe, Verified 12/17/22 10:22) ANAPHYLAXIS codeine [Codeine] Allergy (Intermediate, Verified 12/17/22 10:22) SEVERE VOMITING, vomiting ciprofloxacin [CIPROFLOXACIN] Allergy (Unknown, Verified 12/17/22 10:22) ANAPHYLAXIS neomycin [NEOMYCIN] Allergy (Unknown, Verified 12/17/22 10:22) BURNING SENSATION Medication List - Last Reconciled 12/17/22 by Florentin Faria MD atorvastatin 10 mg PO DAILY cholecalciferol (vitamin D3) 25 mcg PO DAILY estradiol 0.01%(0.1mg/gram) grams vaginal hydrocodone-acetaminophen 5-325 mg 1 tab PO BID PRN levothyroxine 25 mcg PO DAILY linaclotide (Linzess) 72 mcg PO QAM 90 days metoprolol succinate ER 25 mg PO DAILY omeprazole 20 mg PO BID ondansetron HCl 4 mg PO Q8H PRN rivaroxaban (Xarelto) 20 mg PO DAILY valacyclovir 1,000 mg PO DAILY HPI 3 month follow up HPI Details GI clinic visit for this 72 YF WITH HTN, ASTHMA, CAD, CHRONIC AF (on Xarelto), cardiac pacemaker for sick sinus syndrome, FATTY LIVER, THYROID DISEASE, hx of CVA, pt returns for for fu of GERD. Pt is being [place] [facility] and has been referred to Pulmonary [place] [facility] [place] evaluation of SOB. Pt is followed [place] [facility] [place] by Dr Claire Hinton who manages her anticoagulation with Xarelto. Pt scheduled for an urgent FU appt after she was seen at [facility] on 08/15/22 with abdominal pain: Patient is 72 years old presented today with having abdominal pain.? CT scan of the abdomen pelvis was negative for any acute evidence of obstruction, abscess, perforation.? There is a nonspecific finding in the liver which will require follow-up on an outpatient basis.? Patient's urine showed a questionable infection.? A dose of antibiotic was given in the emergency department were given additional prescription for Bactrim.? Patient's showed no evidence for appendicitis.? No evidence for diverticulitis.? LFTs are normal.? No evidence for biliary disease.? She is in stable condition.? Old chart was reviewed.? Antibiotic was prescribed.? Patient's currently in stable condition.? I personally reviewed CT scan finding from the radiologist.? I also looked at the CT prior to discharge .? IMAGING STUDIES: 10/15/22 ABD MRI SCAN SHOWED: There is a 1.4 cm T2 bright nonenhancing pericapsular cyst along the posterior right lobe of the liver. This corresponds with the subtle abnormality seen on the recent CT scan. There is no abnormal enhancement or surrounding enhancement to this small cyst. This is of unlikely clinical significance. I do not have any prior images of this area for more remote comparison. 08/15/[address] SCAN SHOWED: LIVER AND BILIARY TREE: Subcentimeter left hepatic lobe simple cyst. A 1.4 cm soft tissue nodule exophytic from the posterior margin of the right hepatic lobe, of indeterminate etiology. Hypoattenuating hepatic parenchyma compatible with hepatic steatosis.? GALLBLADDER: Status post cholecystectomy with trace central intrahepatic biliary duct dilatation which may be related to the sequelae of the postcholecystectomy state.? PANCREAS: Atrophic pancreas.? GASTROINTESTINAL TRACT: Small hiatal hernia. Large and small bowel are unremarkable.? The appendix is not identified however there are no secondary findings of appendicitis. IMPRESSION: No acute findings to extent symptoms of abdominal pain. A 1.4 cm nonspecific soft tissue nodule exophytic from the posterior margin of the right hepatic lobe, of indeterminate etiology. Recommend further evaluation with contrast-enhanced MR abdomen if there is no outside prior imaging available for comparison to assess stability. ? 10/2021 BARIUM SWALLOW SHOWED: Following oral administration of thick barium, barium-coated turkey, there is normal propagation of bolus from the oral cavity through the pharynx, esophagus into stomach without any evidence of obstruction, narrowing or stricture. There is a ventral plate and screws from C3 to C4 and C4 through C6 vertebra but no obstruction seen. No laryngeal penetration or aspiration seen. There are dual pacer electrodes in right atrium and right ventricle. ENDOSCOPIC STUDIES: 10/2021 EGD SHOWED: ESOPHAGUS: GE junction at 38 cms. No stricture, ring, esophagitis or Owens's. Biopsies ? Were obtained from proximal esophagus to check for EOE.? Esophageal balloon dilation was performed with a 20 mm (60 F) CRE balloon X 60 sec STOMACH:? Gastritis and multiple gastric polyps Plan:? Above findings were reviewed with the patient and GERD and Gastritis handouts were given in the discharge area BIOPSIES SHOWED: A.? Stomach, antrum, biopsy:? Antral-type mucosa with mild chronic inactive inflammation and focal intestinal metaplasia; negative for dysplasia; no Helicobacter organisms seen. B.? Stomach, polyps:? Fundic gland polyps with background mild chronic inactive inflammation; no Helicobacter organisms seen. C.? Esophagus, proximal, biopsy:? Squamous epithelium within normal limits; no inflammation seen; negative for eosinophilic esophagitis. 01/[address] REDDY: Digital rectal exam, sphincter tone was adequate. Video colonoscope was introduced without difficulty. It was navigated into the rectosigmoid. There was minor prolapse in this area making navigation somewhat slow. Prep was excellent. We proceeded through sigmoid, descending, transverse colon, hepatic flexure was extrinsic to the region of the proximal transverse colon. We were able to move through this area and enter the distal ascending colon, at which time, the scope started looping impeding advancement. With abdominal pressure, we were able to facilitate movement through the proximal ascending colon into the cecal cap. Appendiceal orifice was seen. Ileocecal valve was well seen. No mucosal abnormalities. Slow rotational views on withdrawing the scope. No polyps were visualized on this exam. Anorectal verge was clear. CURRENT RECOMMENDATIONS: Repeat asymptomatic screening in this patient will be 7 years. Suggestion also that the patient have fecal immunochemical testing (FIT) done at years 4 and 6. TODAY'S VISIT: MRI results reviewed with the patient. Pt denies recurrent RUQ pain Complains of bad breath and plastic taste in the mouth despite being meticulous with her oral hygiene. Recalls that symptoms started after she took Bactrim for a UTI - advised a trail of probiotics 08/15/22 Pt had RUQ pain radiating to the back associated with retching. Unable to sit and had to lay down. Woke up with abdominal pain and drove to [facility] walk in clinic. Advised to go to [facility] ED. Pain resolved with IV pain medication. Notes abdominal pain at least once a week and can last 2-4 hrs. Pain can get worse with food and takes milk and crackers No change in pain with BM or passage of gas. Denies association with constipation. Had similar pain at age 17 or 18 yrs and had abnormal electrolytes Hospitalized for 3-4 days. Taking Linzess and stool softeners for constipation. Had an US 5 to 7 yrs ago which showed a ? 7 mm lesion. She is scheduled for an Abd [place] on 09/23/22 at [facility] 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 Has occasional RUQ abd pain without radiation - once a week and sometimes a twinge and sometimes a dull ache. Unable to recall any precipitating factors - not associated with eating or any particular foods. Continues to have intermittent constipation, bloating and diarrhea. Taking Linzess 72 mcg and has been taking 145 mcg (since 72 mcg was not working) Just started taking hydorocodone for bilateral shoulder pain - diagnosed with a torn rotator cuff EGD and barium swallow results reviewed. Had problems with constipation with impaction. Started taking Linzess and took it every other day and noted BMs with urgency. Maternal GM diagnosed with gastric cancer in her mid sixties and in her early 70's. Sister had ? pancreatitis. Omeprazole preparation was changed - not working Given a purple pill which causes nausea. Has not tried Linzess yet (has medication at home) and using Senna and stool softeners which are working. Takes Senna if no BM for 3-4 days. She also says at nighttime she wakes up with dull ache in the center of her chest - twice a week.? Feels a 4-5/10 pressure like pain without radiation. Denies associated palpitations or dyspnea when she has pain. Never eats last at night. Has intermittent dysphagia with solid foods - toast and chicken. Food will ultimately pass - its too low to cough back up. Pain lasts a few min and pt is able to go back to sleep She had a coronary CTA 6 months ago which showed nonobstructive disease with up to 50% stenosis.? PAST VISIT: Patient yearly follow up for GERD, / Dr. Reddy former patient. Patient cc: constipation, some right side abdominal pain, abdominal bloating, infrequently problem swallowing food, a lot of Nauseas, hemorrhoids they're controlled. Denies any other GI issues. GERD symptoms well controlled with Omeprazole - taking Omeprazole since she was in her 30's. Complains of intermittent RUQ pain and bloating. Pain is not associated with eating or movement. Denies association of bloating with milk products. Denies feeling bloated after taking salads. Tries to have a BM daily and takes stool softeners. Occasional dysphagia - food tends to get stuck on the side of her throat and does not block passage of food. Denies recent change in bowel habits, constipation, diarrhea, black stools. Notes BRB on TP which she attributes to hemorrhoids. Patient denies loud snoring or sleep apnea Denies problems with anesthesia in the past - nausea with anesthetic agents in the past and not with propofol Patient denies known family history of colon polyps, colon cancer or other GI malignancies. Maternal GM diagnosed with metastatic colon cancer at age 60. Mom of Lupus at age 64 yrs. PAST GI HISTORY BY REVIEW OF MEDICAL RECORDS: 02/2020 PT WAS LAST SEEN BY DR REDDY: Ms. Charlotte Mcgovern is a 69 y/o female with pmhx GERD, tubular adenoma presenting for GI follow up. This is a televisit due to covid-19. ? She is taking Omeprazole, tolerating well. No breakthrough GERD symptoms. ? Her recent colonscopy was done in January 2020 showing no polyps.? Today, she is feeling well with no complaints.? No abd pain, n/v/d, constipation, rectal bleeding.? She states she has been experiencing intermittent lightheadedness that occurs about 5 times per week. When it occurs she says she feels like she will almost pass out. She denies any sensation of room spinning or poor balance. She has had no falls or episodes of syncope. She recently had repeat screening colonoscopy which was negative. She had initial colon CA screen in 2008 showing a tubular adenoma. Repeat colonoscopy in 2012 was negative for any polyps. Repeat in January 2020 negative as well. Suggest repeat asymptomatic screen in 7 years given she had no polyps seen on last two exams with FIT testing being done at years 3 and 5. She tolerated procedure in January well and iis feeling very well at this time with no reported?complaints [facility] Medical History CAD (coronary artery disease) Cardiac pacemaker in situ CVA (cerebral vascular accident) Gastroesophageal reflux disease HTN (hypertension) Paroxysmal atrial fibrillation Pulmonary nodules Screening for colon cancer Sick sinus syndrome Tubular adenoma of colon Surgical History H/O esophagogastroduodenoscopy H/O tubal ligation History of cardiac catheterization (~2011) History of carpal tunnel release History of permanent cardiac pacemaker placement (~10/2018) Hx of cholecystectomy Hx of colonoscopy Hx of endoscopy Family History Father CHF (congestive heart failure) CVA (cerebral vascular accident) Diabetes Chronic lung disease Cancer Mother CVD (cardiovascular disease) SLE exacerbation Sister Alcoholic pancreatitis Brother A-fib Daughter Morbidly obese IBS (irritable bowel syndrome) Social History Alcohol intake: current Alcohol intake frequency: 0-2 drinks per day Alcohol type: wine Patient Tobacco Use Status: Former Tobacco user Quit Date: 1997 Review of Systems Const All systems reviewed & are unremarkable except as noted in HPI and below Physical Exam Vital Signs: Last Vital Signs Pulse 71 12/17/22 10:24 BP 134/62 12/17/22 10:24 BMI result Body Mass Index 28.0 Const General: healthy appearing and no acute distress Nutritional Appearance: overweight Orientation/consciousness: patient oriented x3 HEENT Head: Yes normal to inspection Ears: hearing grossly normal bilaterally Eyes Sclerae: sclerae normal Pupils: Equal, round and reactive pupils present Neck Neck: Yes normal visual inspection Chest Chest palpation & inspection: normal inspection of the chest Resp Effort & Inspection: normal respiratory effort Auscultation: clear to auscultation bilaterally Cardio Palpation: normal PMI Rate: regular rate Rhythm: regular rhythm Heart sounds: S1 normal heart sound present, S2 normal heart sound present and no murmurs GI Palpation (GI): Soft to palpation, nontender and No hepatosplenomegaly present Auscultation: normal bowel sounds Rectal Exam - Female: deferred Skin General skin exam: no rashes or lesions noted Neuro General: patient oriented x3, gait normal and moves all extremities Cranial nerves: Yes Equal, round and reactive pupils present Psych Appearance: grossly normal Mental Status: mental status grossly normal Assessment & Plan Assessment & Plan (1) Lesion of liver greater than 1 cm in diameter: Code(s): K76.9 - Liver disease, unspecified (2) Gastric intestinal 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: Code(s): K31.A19 - Gastric intestinal 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, unspecified site (3) Dysphagia, pharyngoesophageal phase: Code(s): R13.14 - Dysphagia, pharyngoesophageal phase (4) Chronic constipation: Code(s): K59.09 - Other constipation (5) Gastroesophageal reflux disease: Code(s): K21.9 - Gastro-esophageal reflux disease without esophagitis (6) Tubular adenoma of colon: Code(s): D12.6 - Benign neoplasm of colon, unspecified (7) Screening for colon cancer: Comment: 01/2020 pt had a colonoscopy by Dr Reddy which was negative Repeat colonoscopy advised in 5 yrs (due on 01/2025) due to hx of tubular adenoma removed in 2008. Code(s): Z12.11 - Encounter for screening for malignant neoplasm of colon Plan 72 YF WITH HTN, CHRONIC AF (on Xarelto), cardiac pacemaker followed in GI for GERD, dysphagia, chronic constipation. Pt is status post dual chamber pacemaker for sick sinus syndrome in 2018. Her GERD medication was switched to a different preparation of Omeprazole which has not been effective in controlling her symptoms. Takes Senna if no BM for 3-4 days - she was advised to take it 3 times a week. Has not tried Linzess yet (has medication at home) and using Senna and stool softeners which are working. Pt has intermittent episodes of dull ache/pressure like pain in the center of her chest which wakes her up at night. Pain lasts a few min and pt is able to go back to sleep She had a coronary CTA 6 months ago which showed nonobstructive disease with up to 50% stenosis.? She has intermittent dysphagia with solid foods - toast and chicken. Barium swallow showed?normal propagation of bolus from the oral cavity through the pharynx, esophagus into stomach without any evidence of obstruction, narrowing or stricture. EGD showed gastritis and multiple gastric polyps and no stricture or ring noted in the esophgus. Antral biopsies showed intestinal metaplasia Repeat EGD in 3 yrs (can be scheduled with her next colonoscopy) Linaclotide 72 mcg daily or every other day for constipation (A copy of last chest CT scan given to the pt to take to her pulmonary clinic app[place] [facility] Pt is followed at [facility] [place] by Dr Claire Hinton who manages her anticoagulation with Xarelto. Pt is scheduled for an Abd US on 10/15/22 MRI was performed (Fu of liver lesions seen on recent abdominal CT scan.? 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
[2022-12-17 10:24] VITALS: BP 134/62; PULSE 71; BMI 28.0
== END 2022-12-17 11:41 | disposition home or self-care (01) ==
PROVIDERS: Visit Provider Internal Medicine Gastroenterology
DX: K76.9 Liver disease, unspecified (principal); K31.A19 Gastric intestinal 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, unspecified site; R13.14 Dysphagia, pharyngoesophageal phase; K59.09 Other constipation; K21.9 Gastro-esophageal reflux disease without esophagitis; D12.6 Benign neoplasm of colon, unspecified; Z12.11 Encounter for screening for malignant neoplasm of colon
CPT/HCPCS: 99214

== ENCOUNTER → 2022-12-17 10:15 | Outpatient (BNVA) | payer MEDICARE, SELFPAY | PROVIDERS: Visit Provider Internal Medicine Gastroenterology | DX: Z12.11 Encounter for screening for malignant neoplasm of colon (principal); K76.9 Liver disease, unspecified; K21.9 Gastro-esophageal reflux disease without esophagitis; K59.09 Other constipation; R13.14 Dysphagia, pharyngoesophageal phase; D12.6 Benign neoplasm of colon, unspecified; K31.A19 Gastric intestinal 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, unspecified site | CPT/HCPCS: 99212 ==

== ENCOUNTER 2023-02-11 11:45 | Outpatient (AMB) | payer MEDICARE, SELFPAY ==
--- NOTE | 2023-02-11 11:48 | MHC.OFFVIS ---
Vital Signs 02/11/23 12:12 Height 5 ft 3 in Weight 154 lb BMI 27.3 BP 125/58 L Blood Pressure Location Lt brachial Position Sitting Pulse 77 Intake Visit Reasons: 6 month fu Intake Note: Patient follow up for GERD and constipation. Patient said medication are helping with her GERD and constipation. Denies any other GI issues. Management Information Systems Director Required: No Accompanied by: Self / Same As Patient Allergies Penicillins Allergy (Severe, Verified 08/12/23 11:01) ANAPHYLAXIS codeine [Codeine] Allergy (Intermediate, Verified 08/12/23 11:01) SEVERE VOMITING, vomiting ciprofloxacin [CIPROFLOXACIN] Allergy (Unknown, Verified 08/12/23 11:01) ANAPHYLAXIS neomycin [NEOMYCIN] Allergy (Unknown, Verified 08/12/23 11:01) BURNING SENSATION Medication List - Last Reconciled 02/11/23 by Florentin Faria MD atorvastatin 10 mg PO DAILY cholecalciferol (vitamin D3) 25 mcg PO DAILY estradiol 0.01%(0.1mg/gram) grams vaginal hydrocodone-acetaminophen 5-325 mg 1 tab PO BID PRN Lactobacillus rhamnosus GG (Culturelle) 1 cap PO DAILY 30 days levothyroxine 25 mcg PO DAILY linaclotide (Linzess) 72 mcg PO QAM 90 days metoprolol succinate ER 25 mg PO DAILY omeprazole 20 mg PO BID rivaroxaban (Xarelto) 20 mg PO DAILY valacyclovir 1,000 mg PO DAILY HPI HPI 6 month fu: Details: GI clinic visit for this 72 YF WITH HTN, ASTHMA, CAD, CHRONIC AF (on Xarelto), cardiac pacemaker for sick sinus syndrome, FATTY LIVER, THYROID DISEASE, hx of CVA, pt returns for for fu of GERD. Pt is being followed by Cardiology at [facility] and has been referred to Pulmonary at [facility] for evaluation of SOB. Pt is followed at [facility] Cardiology by Dr Claire Hinton who manages her anticoagulation with Xarelto. Pt scheduled for an urgent FU appt after she was seen at [facility] [place] ED on 08/15/22 with abdominal pain: Patient is 72 years old presented today with having abdominal pain.? CT scan of the abdomen pelvis was negative for any acute evidence of obstruction, abscess, perforation.? There is a nonspecific finding in the liver which will require follow-up on an outpatient basis.? Patient's urine showed a questionable infection.? A dose of antibiotic was given in the emergency department were given additional prescription for Bactrim.? Patient's showed no evidence for appendicitis.? No evidence for diverticulitis.? LFTs are normal.? No evidence for biliary disease.? She is in stable condition.? Old chart was reviewed.? Antibiotic was prescribed.? Patient's currently in stable condition.? I personally reviewed CT scan finding from the radiologist.? I also looked at the CT prior to discharge .? IMAGING STUDIES: 10/15/22 ABD MRI SCAN SHOWED: There is a 1.4 cm T2 bright nonenhancing pericapsular cyst along the posterior right lobe of the liver. This corresponds with the subtle abnormality seen on the recent CT scan. There is no abnormal enhancement or surrounding enhancement to this small cyst. This is of unlikely clinical significance. I do not have any prior images of this area for more remote comparison. 08/15/[address] SCAN SHOWED:LIVER AND BILIARY TREE: Subcentimeter left hepatic lobe simple cyst. A 1.4 cm soft tissue nodule exophytic from the posterior margin of theright hepatic lobe, of indeterminate etiology. Hypoattenuating hepatic parenchyma compatible with hepatic steatosis.? GALLBLADDER: Status post cholecystectomy with trace central intrahepatic biliary duct dilatation which may be related to the sequelae of the postcholecystectomy state.? PANCREAS: Atrophic pancreas.? GASTROINTESTINAL TRACT: Small hiatal hernia. Large and small bowel are unremarkable.? The appendix is not identified however there are no secondary findings of appendicitis. IMPRESSION: No acute findings to extent symptoms of abdominal pain. A 1.4 cm nonspecific soft tissue nodule exophytic from the posterior margin of the right hepatic lobe, of indeterminate etiology. Recommend further evaluation with contrast-enhanced MR abdomen if there is no outside prior imaging available for comparison to assess stability. ? 10/2021 BARIUM SWALLOW SHOWED:Following oral administration of thick barium, barium-coated turkey, there is normal propagation of bolus from the oral cavity through the pharynx, esophagus into stomach without any evidence of obstruction, narrowing or stricture. There is a ventral plate and screws from C3 to C4 and C4 through C6 vertebra but no obstruction seen. No laryngeal penetration or aspiration seen. There are dual pacer electrodes in right atrium and right ventricle. ENDOSCOPIC STUDIES: 10/2021 EGD SHOWED: ESOPHAGUS: GE junction at 38 cms. No stricture, ring, esophagitis or Owens's. Biopsies ? Were obtained from proximal esophagus to check for EOE.? Esophageal balloon dilation was performed with a 20 mm (60 F) CRE balloon X 60 sec STOMACH:? Gastritis and multiple gastric polyps Plan:? Above findings were reviewed with the patient and GERD and Gastritis handouts were given in the discharge area BIOPSIES SHOWED: A.? Stomach, antrum, biopsy:? Antral-type mucosa with mild chronic inactive inflammation and focal intestinal metaplasia; negative for dysplasia; no Helicobacter organisms seen. B.? Stomach, polyps:? Fundic gland polyps with background mild chronic inactive inflammation; no Helicobacter organisms seen. C.? Esophagus, proximal, biopsy:? Squamous epithelium within normal limits; no inflammation seen; negative for eosinophilic esophagitis. 01/2020 [address] REDDY:Digital rectal exam, sphincter tone was adequate. Video colonoscope was introduced without difficulty. It was navigated into the rectosigmoid. There was minor prolapse in this area making navigation somewhat slow. Prep was excellent. We proceeded through sigmoid, descending, transverse colon, hepatic flexure was extrinsic to the region of the proximal transverse colon. We were able to move through this area and enter the distal ascending colon, at which time, the scope started looping impeding advancement. With abdominal pressure, we were able to facilitate movement through the proximal ascending colon into the cecal cap. Appendiceal orifice was seen. Ileocecal valve was well seen. No mucosal abnormalities. Slow rotational views on withdrawing the scope. No polyps were visualized on this exam. Anorectal verge was clear. CURRENT RECOMMENDATIONS: Repeat asymptomatic screening in this patient will be 7 years. Suggestion also that the patient have fecal immunochemical testing (FIT) done at years 4 and 6. TODAY'S VISIT: Patient follow up for GERD and constipation. Patient said medication are helping with her GERD and constipation. Denies any other GI issues. MRI results reviewed with the patient. Pt denies recurrent RUQ pain since she started taking Probiotics [place] a 100% better after taking it for 3 weeks Does not need the Linzess that often - sometimes takes it 3 days in a row. Usually 10 - 12 times in a month Does not feel bloated. Denies pain except when she needs to have a BM. PAST VISITS: Complains of bad breath and plastic taste in the mouth despite being meticulous with her oral hygiene. Recalls that symptoms started after she took Bactrim for a UTI - advised a trail of probiotics 08/15/22 Pt had RUQ pain radiating to the back associated with retching.Unable to sit and had to lay down. Woke up with abdominal pain and drove to [facility] walk in clinic. Advised to go to [facility] ED. Pain resolved with IV pain medication. Notes abdominal pain at least once a week and can last 2-4 hrs. Pain can get worse with food and takes milk and crackers No change in pain with BM or passage of gas. Denies association with constipation. Had similar pain at age 17 or 18 yrs and had abnormal electrolytes Hospitalized for 3-4 days. Taking Linzess and stool softeners for constipation. Had an US 5 to 7 yrs ago which showed a ? 7 mm lesion. She is scheduled for an Abd US on 09/23/22 at [facility]. 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 Has occasional RUQ abd pain without radiation - once a week and sometimes a twinge and sometimes a dull ache. Unable to recall any precipitating factors - not associated with eating or any particular foods. Continues to have intermittent constipation, bloating and diarrhea. Taking Linzess 72 mcg and has been taking 145 mcg (since 72 mcg was not working) Just started taking hydorocodone for bilateral shoulder pain - diagnosed with a torn rotator cuff EGD and barium swallow results reviewed. Had problems with constipation with impaction. Started taking Linzess and took it every other day and noted BMs with urgency. Maternal GM diagnosed with gastric cancer in her mid sixties and in her early 70's. Sister had ? pancreatitis. Omeprazole preparation was changed - not working Given a purple pill which causes nausea. Has not tried Linzess yet (has medication at home) and using Senna and stool softeners which are working. Takes Senna if no BM for 3-4 days. She also says at nighttime she wakes up with dull ache in the center of her chest - twice a week.? Feels a 4-5/10 pressure like pain without radiation. Denies associated palpitations or dyspnea when she has pain. Never eats last at night. Has intermittent dysphagia with solid foods - toast and chicken. Food will ultimately pass - its too low to cough back up. Pain lasts a few min and pt is able to go back to sleep She had a coronary CTA 6 months ago which showed nonobstructive disease with up to 50% stenosis.? PAST VISIT: Patient yearly follow up for GERD, / Dr. Reddy former patient. Patient cc: constipation, some right side abdominal pain, abdominal bloating, infrequently problem swallowing food, a lot of Nauseas, hemorrhoids they're controlled. Denies any other GI issues. GERD symptoms well controlled with Omeprazole - taking Omeprazole since she was in her 30's. Complains of intermittent RUQ pain and bloating. Pain is not associated with eating or movement. Denies association of bloating with milk products. Denies feeling bloated after taking salads. Tries to have a BM daily and takes stool softeners. Occasional dysphagia - food tends to get stuck on the side of her throat and does not block passage of food. Denies recent change in bowel habits, constipation, diarrhea, black stools. Notes BRB on TP which she attributes to hemorrhoids. Patient denies loud snoring or sleep apnea Denies problems with anesthesia in the past - nausea with anesthetic agents in the past and not with propofol Patient denies known family history of colon polyps, colon cancer or other GI malignancies. Maternal GM diagnosed with metastatic colon cancer at age 60. Mom of Lupus at age 64 yrs. PAST GI HISTORY BY REVIEW OF MEDICAL RECORDS: 02/2020 PT WAS LAST SEEN BY DR REDDY:Ms. Charlotte Mcgovern is a 69 y/o female with pmhx GERD, tubular adenoma presenting for GI follow up. This is a televisit due to covid-19. ? She is taking Omeprazole, tolerating well. No breakthrough GERD symptoms. ? Her recent colonscopy was done in January 2020 showing no polyps.? Today, she is feeling well with no complaints.? No abd pain, n/v/d, constipation, rectal bleeding.? She states she has been experiencing intermittent lightheadedness that occurs about 5 times per week. When it occurs she says she feels like she will almost pass out. She denies any sensation of room spinning or poor balance. She has had no falls or episodes of syncope. She recently had repeat screening colonoscopy which was negative. She had initial colon CA screen in 2008 showing a tubular adenoma. Repeat colonoscopy in 2012 was negative for any polyps. Repeat in January 2020 negative as well. Suggest repeat asymptomatic screen in 7 years given she had no polyps seen on last two exams with FIT testing being done at years 3 and 5. She tolerated procedure in January well and iis feeling very well at this time with no reported?complaints PFSH Medical History CAD (coronary artery disease) Cardiac pacemaker in situ CVA (cerebral vascular accident) Gastroesophageal reflux disease HTN (hypertension) Paroxysmal atrial fibrillation Pulmonary nodules Screening for colon cancer Sick sinus syndrome Tubular adenoma of colon Surgical History Hx of endoscopy History of cardiac catheterization (~2011) History of permanent cardiac pacemaker placement (~10/2018) Hx of colonoscopy H/O esophagogastroduodenoscopy History of carpal tunnel release H/O tubal ligation Hx of cholecystectomy Family History Father CHF (congestive heart failure) CVA (cerebral vascular accident) Diabetes Chronic lung disease Cancer Mother CVD (cardiovascular disease) SLE exacerbation Sister Alcoholic pancreatitis Brother A-fib Daughter Morbidly obese IBS (irritable bowel syndrome) Social History Alcohol intake: current Alcohol intake frequency: 0-2 drinks per day Alcohol type: wine Patient Tobacco Use Status: Former Tobacco user Review of Systems Const All systems reviewed & are unremarkable except as noted in HPI and below Physical Exam Vital Signs: Last Vital Signs Pulse 77 02/11/23 12:12 BP 125/58 L 02/11/23 12:12 BMI result Body Mass Index 27.3 Const General: healthy appearing and no acute distress Nutritional Appearance: overweight Orientation/consciousness: patient oriented x3 HEENT Head: Yes normal to inspection Ears: hearing grossly normal bilaterally Eyes Sclerae: sclerae normal Pupils: Equal, round and reactive pupils present Neck Neck: Yes normal visual inspection Chest Chest palpation & inspection: normal inspection of the chest Resp Effort & Inspection: normal respiratory effort Auscultation: clear to auscultation bilaterally Cardio Palpation: normal PMI Rate: regular rate Rhythm: regular rhythm Heart sounds: S1 normal heart sound present, S2 normal heart sound present and no murmurs GI Palpation (GI): Soft to palpation, nontender and No hepatosplenomegaly present Auscultation: normal bowel sounds Rectal Exam - Female: deferred Skin General skin exam: no rashes or lesions noted Neuro General: patient oriented x3, gait normal and moves all extremities Cranial nerves: Yes Equal, round and reactive pupils present Psych Appearance: grossly normal Mental Status: mental status grossly normal Assessment & Plan Assessment & Plan (1) Intestinal dysbiosis: Code(s): K59.89 - Other specified functional intestinal disorders Category: Medical (2) Gastric intestinal 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: Code(s): K31.A19 - Gastric intestinal 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, unspecified site Category: Medical (3) Dysphagia, pharyngoesophageal phase: Code(s): R13.14 - Dysphagia, pharyngoesophageal phase Category: Medical (4) Chronic constipation: Code(s): K59.09 - Other constipation Category: Medical (5) Gastroesophageal reflux disease: Code(s): K21.9 - Gastro-esophageal reflux disease without esophagitis Category: Medical (6) Tubular adenoma of colon: Code(s): D12.6 - Benign neoplasm of colon, unspecified Category: Medical (7) Screening for colon cancer: Comment: 01/2020 pt had a colonoscopy by Dr Reddy which was negative Repeat colonoscopy advised in 5 yrs (due on 01/2025) due to hx of tubular adenoma removed in 2008. Code(s): Z12.11 - Encounter for screening for malignant neoplasm of colon Category: Medical Plan 72 YF WITH HTN, CHRONIC AF (on Xarelto), cardiac pacemaker followed in GI for GERD, dysphagia, chronic constipation. Pt is status post dual chamber pacemaker for sick sinus syndrome in 2019. Her GERD medication was switched to a different preparation of Omeprazole which has not been effective in controlling her symptoms. Takes Senna if no BM for 3-4 days - she was advised to take it 3 times a week. Has not tried Linzess yet (has medication at home) and using Senna and stool softeners which are working. Pt has intermittent episodes of dull ache/pressure like pain in the center of her chest which wakes her up at night. Pain lasts a few min and pt is able to go back to sleep She had a coronary CTA 6 months ago which showed nonobstructive disease with up to 50% stenosis.? She has intermittent dysphagia with solid foods - toast and chicken. Barium swallow showed?normal propagation of bolus from the oral cavity through the pharynx, esophagus into stomach without any evidence of obstruction, narrowing or stricture. EGD showed gastritis and multiple gastric polyps and no stricture or ring noted in the esophgus. Antral biopsies showed intestinal metaplasia Repeat EGD in 3 yrs (can be scheduled with her next colonoscopy) Linaclotide 72 mcg daily or every other day for constipation (A copy of last chest CT scan given to the pt to take to her pulmonary clinic appt at [facility]) Pt is followed at [facility] Cardiology by Dr Claire Hinton who manages her anticoagulation with Xarelto. Pt is scheduled for an Abd US on 10/15/22 MRI was performed (Fu of liver lesions seen on recent abdominal CT scan.? MRCP to rule out CBD stone or sludge causing intermittent episodes of biliary type abdominal pain) and results as noted above 02/11/23 MRI results reviewed with the patient. Pt denies recurrent RUQ pain since she started taking Probiotics [place] a 100% better after taking it for 3 weeks Does not need the Linzess that often - sometimes takes it 3 days in a row. Follow-up in 6 months Coding Level of Care Code Est Pt Level 3 (66632) Diagnoses Intestinal dysbiosis K59.89 Gastric intestinal 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 K31.A19 Dysphagia, pharyngoesophageal phase R13.14 Chronic constipation K59.09 Gastroesophageal reflux disease K21.9 Tubular adenoma of colon D12.6 Screening for colon cancer Z12.11 Time Spent (min) 21
[2023-02-11 12:12] VITALS: BP 125/58; PULSE 77; BMI 27.3
== END 2023-02-11 12:31 | disposition home or self-care (01) ==
PROVIDERS: Visit Provider Internal Medicine Gastroenterology
DX: K59.89 Other specified functional intestinal disorders (principal); K31.A19 Gastric intestinal 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, unspecified site; R13.14 Dysphagia, pharyngoesophageal phase; K59.09 Other constipation; K21.9 Gastro-esophageal reflux disease without esophagitis; D12.6 Benign neoplasm of colon, unspecified; Z12.11 Encounter for screening for malignant neoplasm of colon
CPT/HCPCS: 99213

== ENCOUNTER → 2023-02-11 11:45 | Outpatient (BNVA) | payer MEDICARE, SELFPAY | PROVIDERS: Visit Provider Internal Medicine Gastroenterology | DX: K21.9 Gastro-esophageal reflux disease without esophagitis (principal); K59.89 Other specified functional intestinal disorders; K31.A19 Gastric intestinal 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, unspecified site; R13.14 Dysphagia, pharyngoesophageal phase; K59.09 Other constipation; Z86.010 Personal history of colon polyps; Z79.899 Other long term (current) drug therapy | CPT/HCPCS: 99212 ==

== ENCOUNTER 2023-08-12 10:59 | Outpatient (AMB) | payer MEDICARE, SELFPAY ==
--- NOTE | 2023-08-12 11:01 | MHC.OFFVIS ---
Intake Vital Signs 08/12/23 11:07 Height 5 ft 3 in Weight 156 lb BMI 27.6 BP 116/52 L Blood Pressure Location Lt brachial Position Sitting Pulse 71 Intake Visit Reasons: 6 month follow up Intake Note: Patient follow up for Chronic Constipation. Patient cc: constipation on and off, denies any other GI issues. Town Marshal Required: No Accompanied by: Self / Same As Patient Allergies Penicillins Allergy (Severe, Verified 08/12/23 11:01) ANAPHYLAXIS codeine [Codeine] Allergy (Intermediate, Verified 08/12/23 11:01) SEVERE VOMITING, vomiting ciprofloxacin [CIPROFLOXACIN] Allergy (Unknown, Verified 08/12/23 11:01) ANAPHYLAXIS neomycin [NEOMYCIN] Allergy (Unknown, Verified 08/12/23 11:01) BURNING SENSATION Medication List - Last Reconciled 08/12/23 by Florentin Faria MD atorvastatin 10 mg PO DAILY cholecalciferol (vitamin D3) 25 mcg PO DAILY estradiol 0.01%(0.1mg/gram) grams vaginal hydrocodone-acetaminophen 5-325 mg 1 tab PO BID PRN Lactobacillus rhamnosus GG (Culturelle) 1 cap PO DAILY 30 days levothyroxine 25 mcg PO DAILY linaclotide (Linzess) 72 mcg PO QAM 90 days metoprolol succinate ER 25 mg PO DAILY omeprazole 20 mg PO BID 90 days rivaroxaban (Xarelto) 20 mg PO DAILY valacyclovir 1,000 mg PO DAILY HPI 6 month follow up HPI Details GI clinic visit for this 72 YF WITH HTN, ASTHMA, CAD, CHRONIC AF (on Xarelto), cardiac pacemaker for sick sinus syndrome, FATTY LIVER, THYROID DISEASE, hx of CVA, pt returns for for fu of GERD. Pt is being followed by Cardiology at [facility] and has been referred to Pulmonary at [facility] for evaluation of SOB. Pt is followed at [facility] Cardiology by Dr Claire Hinton who manages her anticoagulation with Xarelto. Pt scheduled for an urgent FU appt after she was seen at [facility] ED on 08/15/22 with abdominal pain: Patient is 72 years old presented today with having abdominal pain.? CT scan of the abdomen pelvis was negative for any acute evidence of obstruction, abscess, perforation.? There is a nonspecific finding in the liver which will require follow-up on an outpatient basis.? Patient's urine showed a questionable infection.? A dose of antibiotic was given in the emergency department were given additional prescription for Bactrim.? Patient's showed no evidence for appendicitis.? No evidence for diverticulitis.? LFTs are normal.? No evidence for biliary disease.? She is in stable condition.? Old chart was reviewed.? Antibiotic was prescribed.? Patient's currently in stable condition.? I personally reviewed CT scan finding from the radiologist.? I also looked at the CT prior to discharge .? IMAGING STUDIES: 10/15/22 ABD MRI SCAN SHOWED: There is a 1.4 cm T2 bright nonenhancing pericapsular cyst along the posterior right lobe of the liver. This corresponds with the subtle abnormality seen on the recent CT scan. There is no abnormal enhancement or surrounding enhancement to this small cyst. This is of unlikely clinical significance. I do not have any prior images of this area for more remote comparison. 08/15/[address] SCAN SHOWED:LIVER AND BILIARY TREE: Subcentimeter left hepatic lobe simple cyst. A 1.4 cm soft tissue nodule exophytic from the posterior margin of theright hepatic lobe, of indeterminate etiology. Hypoattenuating hepaticparenchyma compatible with hepatic steatosis.? GALLBLADDER: Status post cholecystectomy with trace central intrahepatic biliary duct dilatation which may be related to the sequelae of the postcholecystectomy state.? PANCREAS: Atrophic pancreas.? GASTROINTESTINAL TRACT: Small hiatal hernia. Large and small bowel are unremarkable.? The appendix is not identified however there are no secondary findings of appendicitis. IMPRESSION: No acute findings to extent symptoms of abdominal pain. A 1.4 cm nonspecific soft tissue nodule exophytic from the posterior margin of the right hepatic lobe, of indeterminate etiology. Recommend further evaluation with contrast-enhanced MR abdomen if there is no outside prior imaging available for comparison to assess stability. ? 10/2021 BARIUM SWALLOW SHOWED:Following oral administration of thick barium, barium-coated turkey,there is normal propagation of bolus from the oral cavity through the pharynx, esophagus into stomach without any evidence of obstruction, narrowing or stricture. There is a ventral plate and screws from C3 to C4 and C4 through C6 vertebra but no obstruction seen. No laryngeal penetration or aspiration seen. There are dual pacer electrodes in right atrium and right ventricle. ENDOSCOPIC STUDIES: 10/2021 EGD SHOWED: ESOPHAGUS: GE junction at 38 cms. No stricture, ring, esophagitis or Owens's. Biopsies ? Were obtained from proximal esophagus to check for EOE.? Esophageal balloon dilation was performed with a 20 mm (60 F) CRE balloon X 60 sec STOMACH:? Gastritis and multiple gastric polyps Plan:? Above findings were reviewed with the patient and GERD and Gastritis handouts were given in the discharge area BIOPSIES SHOWED: A.? Stomach, antrum, biopsy:? Antral-type mucosa with mild chronic inactive inflammation and focal intestinal metaplasia; negative for dysplasia; no Helicobacter organisms seen. B.? Stomach, polyps:? Fundic gland polyps with background mild chronic inactive inflammation; no Helicobacter organisms seen. C.? Esophagus, proximal, biopsy:? Squamous epithelium within normal limits; no inflammation seen; negative for eosinophilic esophagitis. 01/[address] REDDY:Digital rectal exam, sphincter tone was adequate. Video colonoscope wasintroduced without difficulty. It was navigated into the rectosigmoid. There was minor prolapse in this area making navigation somewhat slow. Prep was excellent. We proceeded through sigmoid, descending, transverse colon, hepatic flexure was extrinsic to the region of the proximal transverse colon. We were able to move through this area and enter the distal ascending colon, at which time, the scope started looping impeding advancement. With abdominal pressure, we were able to facilitate movement through the proximal ascending colon into the cecal cap. Appendiceal orifice was seen. Ileocecal valve was well seen. No mucosal abnormalities. Slow rotational views on withdrawing the scope. No polyps were visualized on this exam. Anorectal verge was clear. CURRENT RECOMMENDATIONS: Repeat asymptomatic screening in this patient will be 7 years. Suggestion also that the patient have fecal immunochemical testing (FIT) done at years 3 and 5. TODAY'S VISIT: Patient cc: constipation on and off, denies any other GI issues. Took probiotics x 3 months and helped bigtime with constipation Stopped since she felt she was getting dependant on the probiotics. BMs are irregular and takes the Linzess when she has not had a BM or is passing pebble like stools. Takes Linzess 3-4 times a week - usually takes 3 days to work. Pt was advised to alternate Linzess with Senna every other day. Takes fruit and vegetables and takes a bid salad twice a week. PAST VISITS: MRI results reviewed with the patient. Pt denies recurrent RUQ pain since she started taking Probiotics [place] a 100% better after taking it for 3 weeks Does not need the Linzess that often - sometimes takes it 3 days in a row. Usually 10 - 12 times in a month Does not feel bloated. Denies pain except when she needs to have a BM. Complains of bad breath and plastic taste in the mouth despite being meticulous with her oral hygiene. Recalls that symptoms started after she took Bactrim for a UTI - advised a trail of probiotics 08/15/22 Pt had RUQ pain radiating to the back associated with retching.Unable to sit and had to lay down.Woke up with abdominal pain and drove to [facility] walk in clinic. Advised to go to [facility] ED. Pain resolved with IV pain medication. Notes abdominal pain at least once a week and can last 2-4 hrs. Pain can get worse with food and takes milk and crackers No change in pain with BM or passage of gas. Denies association with constipation. Had similar pain at age 17 or 18 yrs and had abnormal electrolytes Hospitalized for 3-4 days. Taking Linzess and stool softeners for constipation. Had an US 5 to 7 yrs ago which showed a ? 7 mm lesion. She is scheduled for an Abd US on 09/23/22 at [facility]. 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 Has occasional RUQ abd pain without radiation - once a week and sometimes a twinge and sometimes a dull ache. Unable to recall any precipitating factors - not associated with eating or any particular foods. Continues to have intermittent constipation, bloating and diarrhea. Taking Linzess 72 mcg and has been taking 145 mcg (since 72 mcg was not working) Just started taking hydorocodone for bilateral shoulder pain - diagnosed with a torn rotator cuff EGD and barium swallow results reviewed. Had problems with constipation with impaction. Started taking Linzess and took it every other day and noted BMs with urgency. Maternal GM diagnosed with gastric cancer in her mid sixties and in her early 70's. Sister had ? pancreatitis. Omeprazole preparation was changed - not working Given a purple pill which causes nausea. Has not tried Linzess yet (has medication at home) and using Senna and stool softeners which are working. Takes Senna if no BM for 3-4 days. She also says at nighttime she wakes up with dull ache in the center of her chest - twice a week.? Feels a 4-5/10 pressure like pain without radiation. Denies associated palpitations or dyspnea when she has pain. Never eats last at night. Has intermittent dysphagia with solid foods - toast and chicken. Food will ultimately pass - its too low to cough back up. Pain lasts a few min and pt is able to go back to sleep She had a coronary CTA 6 months ago which showed nonobstructive disease with up to 50% stenosis.? PAST VISIT: Patient yearly follow up for GERD, / Dr. Reddy former patient. Patient cc: constipation, some right side abdominal pain, abdominal bloating, infrequently problem swallowing food, a lot of Nauseas, hemorrhoids they're controlled. Denies any other GI issues. GERD symptoms well controlled with Omeprazole - taking Omeprazole since she was in her 30's. Complains of intermittent RUQ pain and bloating. Pain is not associated with eating or movement. Denies association of bloating with milk products. Denies feeling bloated after taking salads. Tries to have a BM daily and takes stool softeners. Occasional dysphagia - food tends to get stuck on the side of her throat and does not block passage of food. Denies recent change in bowel habits, constipation, diarrhea, black stools. Notes BRB on TP which she attributes to hemorrhoids. Patient denies loud snoring or sleep apnea Denies problems with anesthesia in the past - nausea with anesthetic agents in the past and not with propofol Patient denies known family history of colon polyps, colon cancer or other GI malignancies. Maternal GM diagnosed with metastatic colon cancer at age 60. Mom of Lupus at age 64 yrs. PAST GI HISTORY BY REVIEW OF MEDICAL RECORDS: 02/2020 PT WAS LAST SEEN BY DR REDDY:Ms. Charlotte Mcgovern is a 69 y/o female with pmhx GERD, tubular adenoma presenting for GI follow up. This is a televisit due to covid-19. ?She is taking Omeprazole, tolerating well. No breakthrough GERD symptoms. ? Her recent colonscopy was done in January 2020 showing no polyps.? Today, she is feeling well with no complaints.? No abd pain, n/v/d, constipation, rectal bleeding.? She states she has been experiencing intermittent lightheadedness that occurs about 5 times per week. When it occurs she says she feels like she will almost pass out. She denies any sensation of room spinning or poor balance. She has had no falls or episodes of syncope. She recently had repeat screening colonoscopy which was negative. She had initial colon CA screen in 2008 showing a tubular adenoma. Repeat colonoscopy in 2012 was negative for any polyps. Repeat in January 2020 negative as well. Suggest repeat asymptomatic screen in 7 years given she had no polyps seen on last two exams with FIT testing being done at years 3 and 5. She tolerated procedure in January well and iis feeling very well at this time with no reported?complaints PFSH Medical History CAD (coronary artery disease) Cardiac pacemaker in situ CVA (cerebral vascular accident) Gastroesophageal reflux disease HTN (hypertension) Paroxysmal atrial fibrillation Pulmonary nodules Screening for colon cancer Sick sinus syndrome Tubular adenoma of colon Surgical History Hx of endoscopy History of cardiac catheterization (~2011) History of permanent cardiac pacemaker placement (~10/2018) Hx of colonoscopy H/O esophagogastroduodenoscopy History of carpal tunnel release H/O tubal ligation Hx of cholecystectomy Family History Father CHF (congestive heart failure) CVA (cerebral vascular accident) Diabetes Chronic lung disease Cancer Mother CVD (cardiovascular disease) SLE exacerbation Sister Alcoholic pancreatitis Brother A-fib Daughter Morbidly obese IBS (irritable bowel syndrome) Social History Alcohol intake: current Alcohol intake frequency: 0-2 drinks per day Alcohol type: wine Patient Tobacco Use Status: Former Tobacco user Quit Date: 1997 Review of Systems Const All systems reviewed & are unremarkable except as noted in HPI and below Physical Exam Vital Signs: Last Vital Signs Pulse 71 08/12/23 11:07 BP 116/52 L 08/12/23 11:07 BMI result Body Mass Index 27.6 Const General: healthy appearing and no acute distress Nutritional Appearance: overweight Orientation/consciousness: patient oriented x3 HEENT Head: Yes normal to inspection Ears: hearing grossly normal bilaterally Eyes Sclerae: sclerae normal Pupils: Equal, round and reactive pupils present Neck Neck: Yes normal visual inspection Chest Chest palpation & inspection: normal inspection of the chest Resp Effort & Inspection: normal respiratory effort Auscultation: clear to auscultation bilaterally Cardio Palpation: normal PMI Rate: regular rate Rhythm: regular rhythm Heart sounds: S1 normal heart sound present, S2 normal heart sound present and no murmurs GI Palpation (GI): Soft to palpation, nontender and No hepatosplenomegaly present Auscultation: normal bowel sounds Rectal Exam - Female: deferred Skin General skin exam: no rashes or lesions noted Neuro General: patient oriented x3, gait normal and moves all extremities Cranial nerves: Yes Equal, round and reactive pupils present Psych Appearance: grossly normal Mental Status: mental status grossly normal Assessment & Plan Assessment & Plan (1) Intestinal dysbiosis: Code(s): K59.89 - Other specified functional intestinal disorders (2) Lesion of liver greater than 1 cm in diameter: Code(s): K76.9 - Liver disease, unspecified (3) 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 Code(s): Z12.11 - Encounter for screening for malignant neoplasm of colon Plan 73 YF WITH HTN, CHRONIC AF (on Xarelto), cardiac pacemaker followed in GI for GERD, dysphagia, chronic constipation. Pt is status post dual chamber pacemaker for sick sinus syndrome in 2019. Her GERD medication was switched to a different preparation of Omeprazole which has not been effective in controlling her symptoms. Takes Senna if no BM for 3-4 days - she was advised to take it 3 times a week. Has not tried Linzess yet (has medication at home) and using Senna and stool softeners which are working. Pt has intermittent episodes of dull ache/pressure like pain in the center of her chest which wakes her up at night. Pain lasts a few min and pt is able to go back to sleep She had a coronary CTA 6 months ago which showed nonobstructive disease with up to 50% stenosis.? She has intermittent dysphagia with solid foods - toast and chicken. Barium swallow showed?normal propagation of bolus from the oral cavity through the pharynx, esophagus into stomach without any evidence of obstruction, narrowing or stricture. EGD showed gastritis and multiple gastric polyps and no stricture or ring noted in the esophgus. Antral biopsies showed intestinal metaplasia Repeat EGD in 3 yrs (can be scheduled with her next colonoscopy) Linaclotide 72 mcg daily or every other day for constipation (A copy of last chest CT scan given to the pt to take to her pulmonary clinic appt at [facility]) Pt is followed at [facility] Cardiology by Dr Claire Hinton who manages her anticoagulation with Xarelto. Pt is scheduled for an Abd US on 10/15/22 MRI was performed (Fu of liver lesions seen on recent abdominal CT scan.? MRCP to rule out CBD stone or sludge causing intermittent episodes of biliary type abdominal pain) and results as noted above 08/12/23 Took probiotics x 3 months and helped bigtime with constipation Stopped since she felt she was getting dependant on the probiotics. BMs are irregular and takes the Linzess when she has not had a BM or is passing pebble like stools. Takes Linzess 3-4 times a week - usually takes 3 days to work. Pt was advised to alternate Linzess with Senna every other day. 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
[2023-08-12 11:07] VITALS: BP 116/52; PULSE 71; BMI 27.6
== END 2023-08-12 13:07 | disposition home or self-care (01) ==
PROVIDERS: PCP Family Medicine; Visit Provider Internal Medicine Gastroenterology
DX: K59.89 Other specified functional intestinal disorders (principal); K76.9 Liver disease, unspecified; K31.A19 Gastric intestinal 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, unspecified site; R13.14 Dysphagia, pharyngoesophageal phase; K59.09 Other constipation; K21.9 Gastro-esophageal reflux disease without esophagitis; Z12.11 Encounter for screening for malignant neoplasm of colon
CPT/HCPCS: 99214

== ENCOUNTER → 2023-08-12 10:59 | Outpatient (BNVA) | payer MEDICARE, SELFPAY | PROVIDERS: PCP Family Medicine; Visit Provider Internal Medicine Gastroenterology | DX: Z12.11 Encounter for screening for malignant neoplasm of colon (principal); K59.89 Other specified functional intestinal disorders; K76.9 Liver disease, unspecified; K31.A19 Gastric intestinal 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, unspecified site; K59.09 Other constipation; K21.9 Gastro-esophageal reflux disease without esophagitis; R13.14 Dysphagia, pharyngoesophageal phase | CPT/HCPCS: 99212 ==

== ENCOUNTER 2024-02-10 10:51 | Outpatient (AMB) | payer MEDICARE, SELFPAY ==
--- NOTE | 2024-02-10 11:01 | MHC.OFFVIS ---
Vital Signs 02/10/24 11:02 Height 5 ft 3 in Weight 157 lb BMI 27.8 BP 130/58 L Blood Pressure Location Lt brachial Position Sitting Pulse 70 Intake Visit Reasons: 4 month follow up Intake Note: Patient follow up for Patient wanted to check medication. She needed Colonoscopy/EGD, swallowing difficulty, right abdominal pain and loose stool. Affiliate Marketing Coordinator Required: No Accompanied by: Self / Same As Patient Allergies Penicillins Allergy (Severe, Verified 02/10/24 11:00) ANAPHYLAXIS codeine [Codeine] Allergy (Intermediate, Verified 02/10/24 11:00) SEVERE VOMITING, vomiting ciprofloxacin [CIPROFLOXACIN] Allergy (Unknown, Verified 02/10/24 11:00) ANAPHYLAXIS neomycin [NEOMYCIN] Allergy (Unknown, Verified 02/10/24 11:00) BURNING SENSATION Medication List - Last Reconciled 02/10/24 by Florentin Faria MD atorvastatin 10 mg PO DAILY cholecalciferol (vitamin D3) 25 mcg PO DAILY estradiol 0.01%(0.1mg/gram) grams vaginal hydrocodone-acetaminophen 5-325 mg 1 tab PO BID PRN Lactobacillus rhamnosus GG (Culturelle) 1 cap PO DAILY 30 days levothyroxine 25 mcg PO DAILY linaclotide (Linzess) 72 mcg PO QAM 90 days metoprolol succinate ER 25 mg PO DAILY omeprazole 20 mg PO BID 90 days rivaroxaban (Xarelto) 20 mg PO DAILY sennosides-docusate sodium 8.6-50 mg (Senna with Docusate Sodium) 2 tab-caps (2 x 8.6-50 mg) PO BEDTIME 90 days valacyclovir 1,000 mg PO DAILY HPI HPI 4 month follow up: Details: GI clinic visit for this 73 YF WITH HTN, ASTHMA, CAD, CHRONIC AF (on Xarelto), cardiac pacemaker for sick sinus syndrome, FATTY LIVER, THYROID DISEASE, hx of CVA, pt returns for for fu of GERD. Pt is being followed by Cardiology at [facility] and has been referred to Pulmonary at [facility] for evaluation of SOB. Pt is followed at [facility] Cardiology by Dr Claire Hinton who manages her anticoagulation with Xarelto. Pt scheduled for an urgent FU appt after she was seen at [facility] on 08/15[place]22 with abdominal pain: Patient is 72 years old presented today with having abdominal pain.? CT scan of the abdomen pelvis was negative for any acute evidence of obstruction, abscess, perforation.? There is a nonspecific finding in the liver which will require follow-up on an outpatient basis.? Patient's urine showed a questionable infection.? A dose of antibiotic was given in the emergency department were given additional prescription for Bactrim.? Patient's showed no evidence for appendicitis.? No evidence for diverticulitis.? LFTs are normal.? No evidence for biliary disease.? She is in stable condition.? Old chart was reviewed.? Antibiotic was prescribed.? Patient's currently in stable condition.? I personally reviewed CT scan finding from the radiologist.? I also looked at the CT prior to discharge .? TODAY'S VISIT: Patient wanted to check medication. She needed Colonoscopy/EGD, swallowing difficulty, right abdominal pain Taking Omeprazole, Linzess and Senna daily and can have intermittent loose and formed. Has to take medication every day otherwise she can get constipated. Takes oxycodone + acetaminophen for aches and pains Treated with 5 day course of prednisone for shoulder pain without significant improvement. PT x 12 weeks did not work - not ready for a shoulder replacement yet. PAST VISITS: Took probiotics x 3 months and helped bigtime with constipation Stopped since she felt she was getting dependant on the probiotics. BMs are irregular and takes the Linzess when she has not had a BM or is passing pebble like stools. Takes Linzess 3-4 times a week - usually takes 3 days to work. Pt was advised to alternate Linzess with Senna every other day. Takes fruit and vegetables and takes a bid salad twice a week. MRI results reviewed with the patient. Pt denies recurrent RUQ pain since she started taking Probiotics [place] a 100% better after taking it for 3 weeks Does not need the Linzess that often - sometimes takes it 3 days in a row. Usually 10 - 12 times in a month Does not feel bloated. Denies pain except when she needs to have a BM. Complains of bad breath and plastic taste in the mouth despite being meticulous with her oral hygiene. Recalls that symptoms started after she took Bactrim for a UTI - advised a trail of probiotics 08/15/22 Pt had RUQ pain radiating to the back associated with retching.Unable to sit and had to lay down.Woke up with abdominal pain and drove to [facility] [place] [facility].Advised to go to [facility]. Pain resolved with IV pain medication. Notes abdominal pain at least once a week and can last 2-4 hrs. Pain can get worse with food and takes milk and crackers No change in pain with BM or passage of gas. Denies association with constipation. Had similar pain at age 17 or 18 yrs and had abnormal electrolytes Hospitalized for 3-4 days. Taking Linzess and stool softeners for constipation. Had an US 5 to 7 yrs ago which showed a ? 7 mm lesion. She is scheduled for an Abd US on 09/23/22 at [facility]. 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 Has occasional RUQ abd pain without radiation - once a week and sometimes a twinge and sometimes a dull ache. Unable to recall any precipitating factors - not associated with eating or any particular foods. Continues to have intermittent constipation, bloating and diarrhea. Taking Linzess 72 mcg and has been taking 145 mcg (since 72 mcg was not working) Just started taking hydorocodone for bilateral shoulder pain - diagnosed with a torn rotator cuff EGD and barium swallow results reviewed. Had problems with constipation with impaction. Started taking Linzess and took it every other day and noted BMs with urgency. Maternal GM diagnosed with gastric cancer in her mid sixties and in her early 70's. Sister had ? pancreatitis. Omeprazole preparation was changed - not working Given a purple pill which causes nausea. Has not tried Linzess yet (has medication at home) and using Senna and stool softeners which are working. Takes Senna if no BM for 3-4 days. She also says at nighttime she wakes up with dull ache in the center of her chest - twice a week.? Feels a 4-5/10 pressure like pain without radiation. Denies associated palpitations or dyspnea when she has pain. Never eats last at night. Has intermittent dysphagia with solid foods - toast and chicken. Food will ultimately pass - its too low to cough back up. Pain lasts a few min and pt is able to go back to sleep She had a coronary CTA 6 months ago which showed nonobstructive disease with up to 50% stenosis.? PAST VISIT: Patient yearly follow up for GERD, / Dr. Reddy former patient. Patient cc: constipation, some right side abdominal pain, abdominal bloating, infrequently problem swallowing food, a lot of Nauseas, hemorrhoids they're controlled. Denies any other GI issues. GERD symptoms well controlled with Omeprazole - taking Omeprazole since she was in her 30's. Complains of intermittent RUQ pain and bloating. Pain is not associated with eating or movement. Denies association of bloating with milk products. Denies feeling bloated after taking salads. Tries to have a BM daily and takes stool softeners. Occasional dysphagia - food tends to get stuck on the side of her throat and does not block passage of food. Denies recent change in bowel habits, constipation, diarrhea, black stools. Notes BRB on TP which she attributes to hemorrhoids. Patient denies loud snoring or sleep apnea Denies problems with anesthesia in the past - nausea with anesthetic agents in the past and not with propofol Patient denies known family history of colon polyps, colon cancer or other GI malignancies. Maternal GM diagnosed with metastatic ? stomach or colon cancer at age 60. Mom of Lupus at age 64 yrs. IMAGING STUDIES: 10/15/22 ABD MRI SCAN SHOWED: There is a 1.4 cm T2 bright nonenhancing pericapsular cyst along the posterior right lobe of the liver. This corresponds with the subtle abnormality seen on the recent CT scan. There is no abnormal enhancement or surrounding enhancement to this small cyst. This is of unlikely clinical significance. I do not have any prior images of this area for more remote comparison. 08/15/[address] SCAN SHOWED:LIVER AND BILIARY TREE: Subcentimeter left hepatic lobe simple cyst. A 1.4 cm soft tissue nodule exophytic from the posterior margin of theright hepatic lobe, of indeterminate etiology. Hypoattenuating hepaticparenchyma compatible with hepatic steatosis.? GALLBLADDER: Status post cholecystectomy with trace central intrahepatic biliary duct dilatation which may be related to the sequelae of the postcholecystectomy state.? PANCREAS: Atrophic pancreas.? GASTROINTESTINAL TRACT: Small hiatal hernia. Large and small bowel are unremarkable.? The appendix is not identified however there are no secondary findings of appendicitis. IMPRESSION: No acute findings to extent symptoms of abdominal pain. A 1.4 cm nonspecific soft tissue nodule exophytic from the posterior margin of the right hepatic lobe, of indeterminate etiology. Recommend further evaluation with contrast-enhanced MR abdomen if there is no outside prior imaging available for comparison to assess stability. ? 10/2021 BARIUM SWALLOW SHOWED:Following oral administration of thick barium, barium-coated turkey,there is normal propagation of bolus from the oral cavity through thepharynx, esophagus into stomach without any evidence of obstruction, narrowing or stricture. There is a ventral plate and screws from C3 to C4 and C4 through C6 vertebra but no obstruction seen. No laryngeal penetration or aspiration seen. There are dual pacer electrodes in right atrium and right ventricle. ENDOSCOPIC STUDIES: 10/2021 EGD SHOWED: ESOPHAGUS: GE junction at 38 cms. No stricture, ring, esophagitis or Owens's. Biopsies ? Were obtained from proximal esophagus to check for EOE.? Esophageal balloon dilation was performed with a 20 mm (60 F) CRE balloon X 60 sec STOMACH:? Gastritis and multiple gastric polyps Plan:? Above findings were reviewed with the patient and GERD and Gastritis handouts were given in the discharge area BIOPSIES SHOWED: A.? Stomach, antrum, biopsy:? Antral-type mucosa with mild chronic inactive inflammation and focal intestinal metaplasia; negative for dysplasia; no Helicobacter organisms seen. B.? Stomach, polyps:? Fundic gland polyps with background mild chronic inactive inflammation; no Helicobacter organisms seen. C.? Esophagus, proximal, biopsy:? Squamous epithelium within normal limits; no inflammation seen; negative for eosinophilic esophagitis. 01/[address] REDDY: Digital rectal exam, sphincter tone was adequate. Video colonoscope wasintroduced without difficulty. It was navigated into the rectosigmoid. There was minor prolapse in this area making navigation somewhat slow. Prep was excellent. We proceeded through sigmoid, descending, transverse colon, hepatic flexure was extrinsic to the region of the proximal transverse colon. We were able to move through this area and enter the distal ascending colon, at which time, the scope started looping impeding advancement. With abdominal pressure, we were able to facilitate movement through the proximal ascending colon into the cecal cap. Appendiceal orifice was seen. Ileocecal valve was well seen. No mucosal abnormalities. Slow rotational views on withdrawing the scope. No polyps were visualized on this exam. Anorectal verge was clear. CURRENT RECOMMENDATIONS: Repeat asymptomatic screening in this patient will be 7 years. Suggestion also that the patient have fecal immunochemical testing (FIT) done at years 4 and 6. PAST GI HISTORY BY REVIEW OF MEDICAL RECORDS: 02/2020 PT WAS LAST SEEN BY DR REDDY:Ms. Charlotte Mcgovern is a 69 y/o female with pmhx GERD, tubular adenoma presenting for GI follow up. This is a televisit due to covid-19. ?She is taking Omeprazole, tolerating well. No breakthrough GERD symptoms. ? Her recent colonscopy was done in January 2020 showing no polyps.?Today, she is feeling well with no complaints.? No abd pain, n/v/d, constipation, rectal bleeding.? She states she has been experiencing intermittent lightheadedness that occurs about 5 times per week. When it occurs she says she feels like she will almost pass out. She denies any sensation of room spinning or poor balance. She has had no falls or episodes of syncope. She recently had repeat screening colonoscopy which was negative. She had initial colon CA screen in 2008 showing a tubular adenoma. Repeat colonoscopy in 2012 was negative for any polyps. Repeat in January 2020 negative as well. Suggest repeat asymptomatic screen in 7 years given she had no polyps seen on last two exams with FIT testing being done at years 4 and 6. She tolerated procedure in January well and iis feeling very well at this time with no reported?complaints PFSH Medical History CAD (coronary artery disease) Cardiac pacemaker in situ CVA (cerebral vascular accident) Gastroesophageal reflux disease HTN (hypertension) Paroxysmal atrial fibrillation Pulmonary nodules Screening for colon cancer Sick sinus syndrome Tubular adenoma of colon Surgical History Hx of endoscopy History of cardiac catheterization (~2011) History of permanent cardiac pacemaker placement (~10/2018) Hx of colonoscopy H/O esophagogastroduodenoscopy History of carpal tunnel release H/O tubal ligation Hx of cholecystectomy Family History Father CHF (congestive heart failure) CVA (cerebral vascular accident) Diabetes Chronic lung disease Cancer Mother CVD (cardiovascular disease) SLE exacerbation Sister Alcoholic pancreatitis Brother A-fib Daughter Morbidly obese IBS (irritable bowel syndrome) Social History Alcohol intake: current Alcohol intake frequency: 0-2 drinks per day Alcohol type: wine Patient Tobacco Use Status: Former Tobacco user Review of Systems Const All systems reviewed & are unremarkable except as noted in HPI and below Physical Exam Vital Signs: Last Vital Signs Pulse 70 02/10/24 11:02 BP 130/58 L 02/10/24 11:02 BMI result Body Mass Index 27.8 Const General: healthy appearing and no acute distress Nutritional Appearance: overweight Orientation/consciousness: patient oriented x3 HEENT Head: Yes normal to inspection Ears: hearing grossly normal bilaterally Eyes Sclerae: sclerae normal Pupils: Equal, round and reactive pupils present Neck Neck: Yes normal visual inspection Chest Chest palpation & inspection: normal inspection of the chest Resp Effort & Inspection: normal respiratory effort Auscultation: clear to auscultation bilaterally Cardio Palpation: normal PMI Rate: regular rate Rhythm: regular rhythm Heart sounds: S1 normal heart sound present, S2 normal heart sound present and no murmurs GI Palpation (GI): Soft to palpation, nontender and No hepatosplenomegaly present Auscultation: normal bowel sounds Rectal Exam - Female: deferred Skin General skin exam: no rashes or lesions noted Neuro General: patient oriented x3, gait normal and moves all extremities Cranial nerves: Yes Equal, round and reactive pupils present Psych Appearance: grossly normal Mental Status: mental status grossly normal Assessment & Plan Assessment & Plan (1) 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 Pt is status post dual chamber pacemaker for sick sinus syndrome in 2019. Her GERD medication was switched to a different preparation of Omeprazole which has not been effective in controlling her symptoms. Takes Senna if no BM for 3-4 days - she was advised to take it 3 times a week. Has not tried Linzess yet (has medication at home) and using Senna and stool softeners which are working. Pt has intermittent episodes of dull ache/pressure like pain in the center of her chest which wakes her up at night. Pain lasts a few min and pt is able to go back to sleep She had a coronary CTA 6 months ago which showed non-obstructive disease with up to 50% stenosis.? She has intermittent dysphagia with solid foods - toast and chicken. Barium swallow showed?normal propagation of bolus from the oral cavity through the pharynx, esophagus into stomach without any evidence of obstruction, narrowing or stricture. EGD showed gastritis and multiple gastric polyps and no stricture or ring noted in the esophgus. Antral biopsies showed intestinal metaplasia Repeat EGD in 3 yrs (can be scheduled with her next colonoscopy) Linaclotide 72 mcg daily or every other day for constipation (A copy of last chest CT scan given to the pt to take to her pulmonary clinic appt at [facility]) Pt is followed at [facility] Cardiology by Dr Claire Hinton who manages her anticoagulation with Xarelto. Pt is scheduled for an Abd US on 10/15/22 MRI was performed (Fu of liver lesions seen on recent abdominal CT scan.? MRCP to rule out CBD stone or sludge causing intermittent episodes of biliary type abdominal pain) and results as noted above 08/12/23 Took probiotics x 3 months and helped bigtime with constipation Stopped since she felt she was getting dependant on the probiotics. BMs are irregular and takes the Linzess when she has not had a BM or is passing pebble like stools. Takes Linzess 3-4 times a week - usually takes 3 days to work. Pt was advised to alternate Linzess with Senna every other day. 02/10/24 Pt advised to try increasing Linzess to 2 tab daily for a week to see if it is more effective without causing diarrhea. 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
[2024-02-10 11:02] VITALS: BP 130/58; PULSE 70; BMI 27.8
== END 2024-02-10 12:50 | disposition home or self-care (01) ==
PROVIDERS: PCP Family Medicine; Visit Provider Internal Medicine Gastroenterology
DX: K31.A19 Gastric intestinal 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, unspecified site (principal); K59.09 Other constipation; D12.6 Benign neoplasm of colon, unspecified
CPT/HCPCS: 99214

== ENCOUNTER → 2024-02-10 10:51 | Outpatient (BNVA) | payer MEDICARE, SELFPAY | PROVIDERS: PCP Family Medicine; Visit Provider Internal Medicine Gastroenterology | DX: K21.9 Gastro-esophageal reflux disease without esophagitis (principal); R10.9 Unspecified abdominal pain; K31.A19 Gastric intestinal 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, unspecified site; K59.09 Other constipation; D12.6 Benign neoplasm of colon, unspecified; Z79.891 Long term (current) use of opiate analgesic; Z79.899 Other long term (current) drug therapy | CPT/HCPCS: 99212 ==

== ENCOUNTER 2024-08-10 10:55 | Outpatient (AMB) | payer MEDICARE, SELFPAY ==
--- NOTE | 2024-08-10 11:18 | A.OFFVIS_ITS ---
Vital Signs 08/10/24 11:27 Height 5 ft 3 in Weight 156 lb BMI 27.6 BP 154/64 H Blood Pressure Location Lt brachial Position Sitting Pulse 71 Pulse Oximetry (%) 97 Oxygen Delivery Method Room Air Intake Visit Reasons: 6 months f/u FU of GERD and constipation Intake Note: Patient 6 month follow up for chronic constipation. Patient cc: Constipation and some swallowing difficulty with solid and medicatio n. 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: No Accompanied by: Self / Same As Patient Allergies Penicillins Allergy (Severe, Verified 08/10/24 11:23) ANAPHYLAXIS codeine [Codeine] Allergy (Intermediate, Verified 08/10/24 11:23) SEVERE VOMITING, vomiting ciprofloxacin [CIPROFLOXACIN] Allergy (Unknown, Verified 08/10/24 11:23) ANAPHYLAXIS neomycin [NEOMYCIN] Allergy (Unknown, Verified 08/10/24 11:23) BURNING SENSATION Medication List - Last Reconciled 08/10/24 by Florentin Faria MD atorvastatin 10 mg PO DAILY cholecalciferol (vitamin D3) 25 mcg PO DAILY estradiol 0.01%(0.1mg/gram) grams vaginal hydrocodone-acetaminophen 5-325 mg 1 tab PO BID PRN Lactobacillus rhamnosus GG (Culturelle) 1 cap PO DAILY 30 days levothyroxine 25 mcg PO DAILY linaclotide (Linzess) 72 mcg PO QAM 90 days metoprolol succinate ER 25 mg PO DAILY omeprazole 20 mg PO BID 90 days rivaroxaban (Xarelto) 20 mg PO DAILY sennosides-docusate sodium 8.6-50 mg (Senna with Docusate Sodium) 2 tab-caps (2 x 8.6-50 mg) PO BEDTIME 90 days valacyclovir 1,000 mg PO DAILY HPI HPI 6 months f/u FU of GERD and constipation: Details: GI clinic visit for this 74 YF WITH HTN, ASTHMA, CAD, CHRONIC AF (on Xarelto), cardiac pacemaker for sick sinus syndrome, FATTY LIVER, THYROID DISEASE, hx of CVA, pt returns for for fu of GERD. Pt is being followed by Cardiology at [facility] [place] and has been referred to Pulmonary at [facility] [place] for evaluation of SOB. Pt is followed at [facility] [place] Cardiology by Dr Claire Hinton who manages her anticoagulation with Xarelto. Pt scheduled for an urgent FU appt after she was seen at [facility] [place] [facility] on 08/15/22 with abdominal pain: Patient is 72 years old presented today with having abdominal pain.? CT scan of the abdomen pelvis was negative for any acute evidence of obstruction, abscess, perforation.? There is a nonspecific finding in the liver which will require follow-up on an outpatient basis.? Patient's urine showed a questionable infection.? A dose of antibiotic was given in the emergency department were given additional prescription for Bactrim.? Patient's showed no evidence for appendicitis.? No evidence for diverticulitis.? LFTs are normal.? No evidence for biliary disease.? She is in stable condition.? Old chart was reviewed.? Antibiotic was prescribed.? Patient's currently in stable condition.? I personally reviewed CT scan finding from the radiologist.? I also looked at the CT prior to discharge .? TODAY'S VISIT: Patient cc: Constipation and some swallowing difficulty with solid and medication. Complains of constipation since she was unable to take Senna Only able to take Omeprazole purple pill which is not manufactured any more Other preparations cause nausea - advised to try Pantoprazole PAST VISITS: Patient wanted to check medication. She needed Colonoscopy/EGD, swallowing difficulty, right abdominal pain Taking Omeprazole, Linzess and Senna daily and can have intermittent loose and formed stools. Has to take medication every day otherwise she can get constipated. Takes oxycodone + acetaminophen for aches and pains Treated with 5 day course of prednisone for shoulder pain without significant improvement. PT x 12 weeks did not work - not ready for a shoulder replacement yet. Took probiotics x 3 months and helped bigtime with constipation Stopped since she felt she was getting dependant on the probiotics. BMs are irregular and takes the Linzess when she has not had a BM or is passing pebble like stools. Takes Linzess 3-4 times a week - usually takes 3 days to work. Pt was advised to alternate Linzess with Senna every other day. Takes fruit and vegetables and takes a bid salad twice a week. MRI results reviewed with the patient. Pt denies recurrent RUQ pain since she started taking Probiotics [place] a 100% better after taking it for 3 weeks Does not need the Linzess that often - sometimes takes it 3 days in a row. Usually 10 - 12 times in a month Does not feel bloated. Denies pain except when she needs to have a BM. Complains of bad breath and plastic taste in the mouth despite being meticulous with her oral hygiene. Recalls that symptoms started after she took Bactrim for a UTI - advised a trail of probiotics 08/15/22 Pt had RUQ pain radiating to the back associated with retching.Unable to sit and had to lay down.Woke up with abdominal pain and drove to [facility] [place].Advised to go to [facility] [place] [facility]. Pain resolved with IV pain medication. Notes abdominal pain at least once a week and can last 2-4 hrs. Pain can get worse with food and takes milk and crackers No change in pain with BM or passage of gas. Denies association with constipation. Had similar pain at age 17 or 18 yrs and had abnormal electrolytes Hospitalized for 3-4 days. Taking Linzess and stool softeners for constipation. Had an US 5 to 7 yrs ago which showed a ? 7 mm lesion. She is scheduled for an Abd US on 09/23/22 at [facility] [place]. 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 Has occasional RUQ abd pain without radiation - once a week and sometimes a twinge and sometimes a dull ache. Unable to recall any precipitating factors - not associated with eating or any particular foods. Continues to have intermittent constipation, bloating and diarrhea. Taking Linzess 72 mcg and has been taking 145 mcg (since 72 mcg was not working) Just started taking hydorocodone for bilateral shoulder pain - diagnosed with a torn rotator cuff EGD and barium swallow results reviewed. Had problems with constipation with impaction. Started taking Linzess and took it every other day and noted BMs with urgency. Maternal GM diagnosed with gastric cancer in her mid sixties and in her early 70's. Sister had ? pancreatitis. Omeprazole preparation was changed - not working Given a purple pill which causes nausea. Has not tried Linzess yet (has medication at home) and using Senna and stool softeners which are working. Takes Senna if no BM for 3-4 days. She also says at nighttime she wakes up with dull ache in the center of her ches t - twice a week.? Feels a 4-5/10 pressure like pain without radiation. Denies associated palpitations or dyspnea when she has pain. Never eats last at night. Has intermittent dysphagia with solid foods - toast and chicken. Food will ultimately pass - its too low to cough back up. Pain lasts a few min and pt is able to go back to sleep She had a coronary CTA 6 months ago which showed nonobstructive disease with up to 50% stenosis.? PAST VISIT: Patient yearly follow up for GERD, / Dr. Reddy former patient. Patient cc: constipation, some right side abdominal pain, abdominal bloating, infrequently problem swallowing food, a lot of Nauseas, hemorrhoids they're controlled. Denies any other GI issues. GERD symptoms well controlled with Omeprazole - taking Omeprazole since she was in her 30's. Complains of intermittent RUQ pain and bloating. Pain is not associated with eating or movement. Denies association of bloating with milk products. Denies feeling bloated after taking salads. Tries to have a BM daily and takes stool softeners. Occasional dysphagia - food tends to get stuck on the side of her throat and does not block passage of food. Denies recent change in bowel habits, constipation, diarrhea, black stools. Notes BRB on TP which she attributes to hemorrhoids. Patient denies loud snoring or sleep apnea Denies problems with anesthesia in the past - nausea with anesthetic agents in the past and not with propofol Patient denies known family history of colon polyps, colon cancer or other GI malignancies. Maternal GM diagnosed with metastatic ? stomach or colon cancer at age 60. Mom of Lupus at age 64 yrs. IMAGING STUDIES: 10/15/22 ABD MRI SCAN SHOWED: There is a 1.4 cm T2 bright nonenhancing pericapsular cyst along the posterior right lobe of the liver. This corresponds with the subtle abnormality seen on the recent CT scan. There is no abnormal enhancement or surrounding enhancement to this small cyst. This is of unlikely clinical significance. I do not have any prior images of this area for more remote comparison. 08/15/[address] SCAN SHOWED:LIVER AND BILIARY TREE: Subcentimeter left hepatic lobe simple cyst. A 1.4 cm soft tissue nodule exophytic from the posterior margin of theright hepatic lobe, of indeterminate etiology. Hypoattenuating hepaticparenchyma compatible with hepatic steatosis.? GALLBLADDER: Status post cholecystectomy with trace central intrahepatic biliary duct dilatation which may be related to the sequelae of the postcholecystectomy state.? PANCREAS: Atrophic pancreas.? GASTROINTESTINAL TRACT: Small hiatal hernia. Large and small bowel are unremarkable.? The appendix is not identified however there are no secondary findings of appendicitis. IMPRESSION: No acute findings to extent symptoms of abdominal pain. A 1.4 cm nonspecific soft tissue nodule exophytic from the posterior margin of the right hepatic lobe, of indeterminate etiology. Recommend further evaluation with contrast-enhanced MR abdomen if there is no outside prior imaging available for comparison to assess stability. ? 10/2021 BARIUM SWALLOW SHOWED:Following oral administration of thick barium, barium-coated turkey,there is normal propagation of bolus from the oral cavity through thepharynx, esophagus into stomach without any evidence of obstruction, narrowing or stricture. There is a ventral plate and screws from C3 to C4 and C4 through C6 vertebra but no obstruction seen. No laryngeal penetration or aspiration seen. There are dual pacer electrodes in right atrium and right ventricle. ENDOSCOPIC STUDIES: 10/2021 EGD SHOWED: ESOPHAGUS: GE junction at 38 cms. No stricture, ring, esophagitis or Owesn's. Biopsies ? Were obtained from proximal esophagus to check for EOE.? Esophageal balloon dilation was performed with a 20 mm (60 F) CRE balloon X 60 sec STOMACH:? Gastritis and multiple gastric polyps Plan:? Above findings were reviewed with the patient and GERD and Gastritis handouts were given in the discharge area BIOPSIES SHOWED: A.? Stomach, antrum, biopsy:? Antral-type mucosa with mild chronic inactive inflammation and focal intestinal metaplasia; negative for dysplasia; no Helicobacter organisms seen. B.? Stomach, polyps:? Fundic gland polyps with background mild chronic inactive inflammation; no Helicobacter organisms seen. C.? Esophagus, proximal, biopsy:? Squamous epithelium within normal limits; no inflammation seen; negative for eosinophilic esophagitis. 01/[address] REDDY: Digital rectal exam, sphincter tone was adequate. Video colonoscope wasintroduced without difficulty. It was navigated into the rectosigmoid. There was minor prolapse in this area making navigation somewhat slow. Prep was excellent. We proceeded through sigmoid, descending, transverse colon, hepatic flexure was extrinsic to the region of the proximal transverse colon. We were able to move through this area and enter the distal ascending colon, at which time, the scope started looping impeding advancement. With abdominal pressure, we were able to facilitate movement through the proximal ascending colon into the cecal cap. Appendiceal orifice was seen. Ileocecal valve was well seen. No mucosal abnormalities. Slow rotational views on withdrawing the scope. No polyps were visualized on this exam. Anorectal verge was clear. CURRENT RECOMMENDATIONS: Repeat asymptomatic screening in this patient will be 7 years. Suggestion also that the patient have fecal immunochemical testing (FIT) done at years 4 and 6. PAST GI HISTORY BY REVIEW OF MEDICAL RECORDS: 02/2020 PT WAS LAST SEEN BY DR REDDY:Ms. Charlotte Mcgovern is a 69 y/o female with pmhx GERD, tubular adenoma presenting for GI follow up. This is a televisit due to covid-19. ?She is taking Omeprazole, tolerating well. No breakthrough GERD symptoms. ? Her recent colonscopy was done in January 2020 showing no polyps.?Today, she is feeling well with no complaints.? No abd pain, n/v/d, constipation, rectal bleeding.? She states she has been experiencing intermittent lightheadedness that occurs about 5 times per week. When it occurs she says she feels like she will almost pass out. She denies any sensation of room spinning or poor balance. She has had no falls or episodes of syncope. She recently had repeat screening colonoscopy which was negative. She had initial colon CA screen in 2008 showing a tubular adenoma. Repeat colonoscopy in 2012 was negative for any polyps. Repeat in January 2020 negative as well. Suggest repeat asymptomatic screen in 7 years given she had no polyps seen on last two exams with FIT testing being done at years 4 and 6. She tolerated procedure in January well and iis feeling very well at this time with no reported?complaints PFSH Medical History CAD (coronary artery disease) Cardiac pacemaker in situ CVA (cerebral vascular accident) Gastroesophageal reflux disease HTN (hypertension) Paroxysmal atrial fibrillation Pulmonary nodules Screening for colon cancer Sick sinus syndrome Tubular adenoma of colon Surgical History Hx of endoscopy History of cardiac catheterization (~2011) History of permanent cardiac pacemaker placement (~10/2018) Hx of colonoscopy H/O esophagogastroduodenoscopy History of carpal tunnel release H/O tubal ligation Hx of cholecystectomy Family History Father CHF (congestive heart failure) CVA (cerebral vascular accident) Diabetes Chronic lung disease Cancer Mother CVD (cardiovascular disease) SLE exacerbation Sister Alcoholic pancreatitis Brother A-fib Daughter Morbidly obese IBS (irritable bowel syndrome) Social History Alcohol intake: current Alcohol intake frequency: 0-2 drinks per day Alcohol type: wine Patient Tobacco Use Status: Former Tobacco user Review of Systems Const All systems reviewed & are unremarkable except as noted in HPI and below Physical Exam Vital Signs: Last Vital Signs Pulse 71 08/10/24 11:27 BP 154/64 H 08/10/24 11:27 Pulse Ox 97 08/10/24 11:27 Oxygen Delivery Method Room Air 08/10/24 11:27 BMI result Body Mass Index 27.6 Const General: healthy appearing and no acute distress Nutritional Appearance: overweight Orientation/consciousness: patient oriented x3 HEENT Head: Yes normal to inspection Ears: hearing grossly normal bilaterally Eyes Sclerae: sclerae normal Pupils: Equal, round and reactive pupils present Neck Neck: Yes normal visual inspection Chest Chest palpation & inspection: normal inspection of the chest Resp Effort & Inspection: normal respiratory effort Auscultation: clear to auscultation bilaterally Cardio Palpation: normal PMI Rate: regular rate Rhythm: regular rhythm Heart sounds: S1 normal heart sound present, S2 normal heart sound present and no murmurs GI Palpation (GI): Soft to palpation, nontender and No hepatosplenomegaly present Auscultation: normal bowel sounds Rectal Exam - Female: deferred Skin General skin exam: no rashes or lesions noted Neuro General: patient oriented x3, gait normal and moves all extremities Cranial nerves: Yes Equal, round and reactive pupils present Psych Appearance: grossly normal Mental Status: mental status grossly normal Assessment & Plan Assessment & Plan (1) Lesion of liver greater than 1 cm in diameter: Code(s): K76.9 - Liver disease, unspecified Category: Medical (2) Intestinal dysbiosis: Code(s): K59.89 - Other specified functional intestinal disorders Category: Medical (3) Gastric intestinal 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: Code(s): K31.A19 - Gastric intestinal 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, unspecified site Category: Medical (4) Dysphagia, pharyngoesophageal phase: Code(s): R13.14 - Dysphagia, pharyngoesophageal phase Category: Medical (5) Chronic constipation: Code(s): K59.09 - Other constipation Category: Medical (6) Gastroesophageal reflux disease: Code(s): K21.9 - Gastro-esophageal reflux disease without esophagitis Category: Medical (7) Screening for colon cancer: Comment: 01/2020 pt had a colonoscopy by Dr Reddy which was negative Repeat colonoscopy advised in 5 yrs (due on 01/2025) due to hx of tubular adenoma removed in 2008. Code(s): Z12.11 - Encounter for screening for malignant neoplasm of colon Category: Medical Plan 73 YF WITH HTN, CHRONIC AF (on Xarelto), cardiac pacemaker followed in GI for GERD, dysphagia, chronic constipation. Pt is status post dual chamber pacemaker for sick sinus syndrome in 2019. Her GERD medication was switched to a different preparation of Omeprazole which has not been effective in controlling her symptoms. Takes Senna if no BM for 3-4 days - she was advised to take it 3 times a week. Has not tried Linzess yet (has medication at home) and using Senna and stool softeners which are working. Pt has intermittent episodes of dull ache/pressure like pain in the center of her chest which wakes her up at night. Pain lasts a few min and pt is able to go back to sleep She had a coronary CTA 6 months ago which showed non-obstructive disease with up to 50% stenosis.? She has intermittent dysphagia with solid foods - toast and chicken. Barium swallow showed?normal propagation of bolus from the oral cavity through the pharynx, esophagus into stomach without any evidence of obstruction, narrowing or stricture. EGD showed gastritis and multiple gastric polyps and no stricture or ring noted in the esophgus. Antral biopsies showed intestinal metaplasia Repeat EGD in 3 yrs (can be scheduled with her next colonoscopy) Linaclotide 72 mcg daily or every other day for constipation (A copy of last chest CT scan given to the pt to take to her pulmonary clinic appt at [facility] [place]) Pt is followed at [facility] [place] Cardiology by Dr Claire Hinton who manages her anticoagulation with Xarelto. Pt is scheduled for an Abd US on 10/15/22 MRI was performed (Fu of liver lesions seen on recent abdominal CT scan.? MRCP to rule out CBD stone or sludge causing intermittent episodes of biliary type abdominal pain) and results as noted above 08/12/23 Took probiotics x 3 months and helped bigtime with constipation Stopped since she felt she was getting dependant on the probiotics. BMs are irregular and takes the Linzess when she has not had a BM or is passing pebble like stools. Takes Linzess 3-4 times a week - usually takes 3 days to work. Pt was advised to alternate Linzess with Senna every other day. 02/10/24 Pt advised to try increasing Linzess to 2 tab daily for a week to see if it is more effective without causing diarrhea. Pt had a small adenoma removed in 2008 and no polyps were detected during colonoscopies in 2012 and 2019 She was advised FU colon in 7 years Pt would like to schedule EGD and colon in 202508/10/24 Complains of constipation since she was unable to take Senna Only able to take Omeprazole purple pill which is not manufactured any more Other preparations cause nausea - advised to try Pantoprazole Follow-up in 6 months Medications: New pantoprazole Pt has nausea with Omeprazole and unable to tolerate it 40 mg PO BID 60 tabs 2RF 30 days K21.9 - Gastro-esophageal reflux disease without esophagitis Discontinued omeprazole Discontinued Reason: Ancillary Entered New Order 20 mg PO BID 90 days 180 caps 1RF K21.9 - Gastro-esophageal reflux disease without esophagitis Coding Level of Care Code Est Pt Level 3 (88539) Diagnoses Lesion of liver greater than 1 cm in diameter K76.9 Intestinal dysbiosis K59.89 Gastric intestinal 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 K31.A19 Dysphagia, pharyngoesophageal phase R13.14 Chronic constipation K59.09 Gastroesophageal reflux disease K21.9 Screening for colon cancer Z12.11 Time Spent (min) 21
[2024-08-10 11:27] VITALS: BP 154/64; PULSE 71; O2SAT 97; BMI 27.6
== END 2024-08-10 12:01 | disposition home or self-care (01) ==
LOC: HO.HGI 10:55
PROVIDERS: PCP Family Medicine; Visit Provider Internal Medicine Gastroenterology
DX: K76.9 Liver disease, unspecified (principal); K59.89 Other specified functional intestinal disorders; K31.A19 Gastric intestinal 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, unspecified site; R13.14 Dysphagia, pharyngoesophageal phase; K59.09 Other constipation; K21.9 Gastro-esophageal reflux disease without esophagitis
CPT/HCPCS: 99213

== ENCOUNTER → 2024-08-10 10:55 | Outpatient (BNVA) | payer MEDICARE, SELFPAY | PROVIDERS: PCP Family Medicine; Visit Provider Internal Medicine Gastroenterology | DX: K21.9 Gastro-esophageal reflux disease without esophagitis (principal); K59.09 Other constipation; K76.9 Liver disease, unspecified; K59.89 Other specified functional intestinal disorders; K31.A19 Gastric intestinal 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, unspecified site; R13.14 Dysphagia, pharyngoesophageal phase; Z79.899 Other long term (current) drug therapy | CPT/HCPCS: 99212 ==

== ENCOUNTER 2025-02-01 11:21 | Outpatient (AMB) | payer MEDICARE, SELFPAY ==
--- NOTE | 2025-02-01 11:26 | MHC.OFFVIS ---
Vital Signs 02/01/25 11:35 Height 5 ft 3 in Weight 156 lb BMI 27.6 BP 140/62 H Blood Pressure Location Lt brachial Position Sitting Pulse 72 Pulse Oximetry (%) 98 Oxygen Delivery Method Room Air Intake Visit Reasons: 6m GERD constipation Intake Note: Patient 6 month follow up for chronic constipation. Patient cc: BM are float, some ckocking sensation, and medication are helpin with Constipation. 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 Accompanied by: Self / Same As Patient Allergies Penicillins Allergy (Severe, Verified 02/01/25 11:26) ANAPHYLAXIS codeine (Codeine) Allergy (Intermediate, Verified 02/01/25 11:26) SEVERE VOMITING, vomiting ciprofloxacin (CIPROFLOXACIN) Allergy (Unknown, Verified 02/01/25 11:26) ANAPHYLAXIS neomycin (NEOMYCIN) Allergy (Unknown, Verified 02/01/25 11:26) BURNING SENSATION Medication List - Last Reconciled 02/01/25 by Florentin Faria MD atorvastatin 10 mg PO DAILY bisacodyl (Dulcolax (bisacodyl)) 10 mg (2 x 5 mg) PO BEDTIME 7 days cholecalciferol (vitamin D3) 25 mcg PO DAILY estradiol 0.01%(0.1mg/gram) grams vaginal hydrocodone-acetaminophen 5-325 mg 1 tab PO BID PRN Lactobacillus rhamnosus GG (Culturelle) 1 cap PO DAILY 30 days levothyroxine 25 mcg PO DAILY linaclotide (Linzess) 72 mcg PO QAM 90 days metoprolol succinate ER 25 mg PO DAILY omeprazole 20 mg PO BID 90 days rivaroxaban (Xarelto) 20 mg PO DAILY sennosides-docusate sodium 8.6-50 mg (Senna with Docusate Sodium) 2 tab-caps (2 x 8.6-50 mg) PO BEDTIME 90 days valacyclovir 1,000 mg PO DAILY HPI HPI 6m GERD constipation: Details: 6 months f/u FU of GERD and constipation: Details: GI clinic visit for this 74 YF WITH HTN, ASTHMA, CAD, CHRONIC AF (on Xarelto), cardiac pacemaker for sick sinus syndrome, FATTY LIVER, THYROID DISEASE, hx of CVA, pt returns for for fu of GERD. Pt is being followed by Cardiology at [facility] and has been referred to Pulmonary at [facility] for evaluation of SOB. Pt is followed at [facility] Cardiology by Dr Claire Hinton who manages her anticoagulation with Xarelto. Pt scheduled for an urgent FU appt after she was seen at [facility] ED on 08/15/22 with abdominal pain: Patient is 72 years old presented today with having abdominal pain.? CT scan of the abdomen pelvis was negative for any acute evidence of obstruction, abscess, perforation.? There is a nonspecific finding in the liver which will require follow-up on an outpatient basis.? Patient's urine showed a questionable infection.? A dose of antibiotic was given in the emergency department were given additional prescription for Bactrim.? Patient's showed no evidence for appendicitis.? No evidence for diverticulitis.? LFTs are normal.? No evidence for biliary disease.? She is in stable condition.? Old chart was reviewed.? Antibiotic was prescribed.? Patient's currently in stable condition.? I personally reviewed CT scan finding from the radiologist.? I also looked at the CT prior to discharge .? TODAY'S VISIT: Patient cc: BM are float, some chocking sensation, and medication are helping with Constipation. Had back surgery followed by PT with good results Patient cc: Constipation and some swallowing difficulty with solid and medication. Taking 1 Linzess and senna and does not take them if she has a BM or diarrhea. Can take them daily - sometimes skips 1-2 days. Stools are floating for the past 2 months - has been eating a lot of fresh vegetables, peaches and berries. She was able to obtain the [place] and purple Omeprazole and its working well without nausea. Has intermittent choking sensation associated with coughing- especially if she is in a crowd Denies esophageal obstruction or regurgitation of food. PAST VISITS: Complains of constipation since she was unable to take Senna Only able to take Omeprazole purple pill which is not manufactured any more Other preparations cause nausea - advised to try Pantoprazole Patient wanted to check medication. She needed Colonoscopy/EGD, swallowing difficulty, right abdominal pain Taking Omeprazole, Linzess and Senna daily and can have intermittent loose and formed stools. Has to take medication every day otherwise she can get constipated. Takes oxycodone + acetaminophen for aches and pains Treated with 5 day course of prednisone for shoulder pain without significant improvement. PT x 12 weeks did not work - not ready for a shoulder replacement yet. Took probiotics x 3 months and helped bigtime with constipation Stopped since she felt she was getting dependant on the probiotics. BMs are irregular and takes the Linzess when she has not had a BM or is passing pebble like stools. Takes Linzess 3-4 times a week - usually takes 3 days to work. Pt was advised to alternate Linzess with Senna every other day. Takes fruit and vegetables and takes a bid salad twice a week. MRI results reviewed with the patient. Pt denies recurrent RUQ pain since she started taking Probiotics [place] a 100% better after taking it for 3 weeks Does not need the Linzess that often - sometimes takes it 3 days in a row. Usually 10 - 12 times in a month Does not feel bloated. Denies pain except when she needs to have a BM. Complains of bad breath and plastic taste in the mouth despite being meticulous with her oral hygiene. Recalls that symptoms started after she took Bactrim for a UTI - advised a trail of probiotics 08/15/22 Pt had RUQ pain radiating to the back associated with retching.Unable to sit and had to lay down.Woke up with abdominal pain and drove to [facility] walk in clinic.Advised to go to [facility] ED. Pain resolved with IV pain medication. Notes abdominal pain at least once a week and can last 2-4 hrs. Pain can get worse with food and takes milk and crackers No change in pain with BM or passage of gas. Denies association with constipation. Had similar pain at age 17 or 18 yrs and had abnormal electrolytes Hospitalized for 3-4 days. Taking Linzess and stool softeners for constipation. Had an US 5 to 7 yrs ago which showed a ? 7 mm lesion. She is scheduled for an Abd US on 09/23/22 at [facility]. 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 Has occasional RUQ abd pain without radiation - once a week and sometimes a twinge and sometimes a dull ache. Unable to recall any precipitating factors - not associated with eating or any particular foods. Continues to have intermittent constipation, bloating and diarrhea. Taking Linzess 72 mcg and has been taking 145 mcg (since 72 mcg was not working) Just started taking hydorocodone for bilateral shoulder pain - diagnosed with a torn rotator cuff EGD and barium swallow results reviewed. Had problems with constipation with impaction. Started taking Linzess and took it every other day and noted BMs with urgency. Maternal GM diagnosed with gastric cancer in her mid sixties and in her early 70's. Sister had ? pancreatitis. Omeprazole preparation was changed - not working Given a purple pill which causes nausea. Has not tried Linzess yet (has medication at home) and using Senna and stool softeners which are working. Takes Senna if no BM for 3-4 days. She also says at nighttime she wakes up with dull ache in the center of her chest - twice a week.? Feels a 4-5/10 pressure like pain without radiation. Denies associated palpitations or dyspnea when she has pain. Never eats last at night. Has intermittent dysphagia with solid foods - toast and chicken. Food will ultimately pass - its too low to cough back up. Pain lasts a few min and pt is able to go back to sleep She had a coronary CTA 6 months ago which showed nonobstructive disease with up to 50% stenosis.? PAST VISIT: Patient yearly follow up for GERD, / Dr. Reddy former patient. Patient cc: constipation, some right side abdominal pain, abdominal bloating, infrequently problem swallowing food, a lot of Nauseas, hemorrhoids they're controlled. Denies any other GI issues. GERD symptoms well controlled with Omeprazole - taking Omeprazole since she was in her 30's. Complains of intermittent RUQ pain and bloating. Pain is not associated with eating or movement. Denies association of bloating with milk products. Denies feeling bloated after taking salads. Tries to have a BM daily and takes stool softeners. Occasional dysphagia - food tends to get stuck on the side of her throat and does not block passage of food. Denies recent change in bowel habits, constipation, diarrhea, black stools. Notes BRB on TP which she attributes to hemorrhoids. Patient denies loud snoring or sleep apnea Denies problems with anesthesia in the past - nausea with anesthetic agents in the past and not with propofol Patient denies known family history of colon polyps, colon cancer or other GI malignancies. Maternal GM diagnosed with metastatic ? stomach or colon cancer at age 60. Mom of Lupus at age 64 yrs. IMAGING STUDIES: 10/15/22 ABD MRI SCAN SHOWED: There is a 1.4 cm T2 bright nonenhancing pericapsular cyst along the posterior right lobe of the liver. This corresponds with the subtle abnormality seen on the recent CT scan. There is no abnormal enhancement or surrounding enhancement to this small cyst. This is of unlikely clinical significance. I do not have any prior images of this area for more remote comparison. 08/15/[address] SCAN SHOWED:LIVER AND BILIARY TREE: Subcentimeter left hepatic lobe simple cyst. A 1.4 cm soft tissue nodule exophytic from the posterior margin of theright hepatic lobe, of indeterminate etiology. Hypoattenuating hepaticparenchyma compatible with hepatic steatosis.? GALLBLADDER: Status post cholecystectomy with trace central intrahepatic biliary duct dilatation which may be related to the sequelae of the postcholecystectomy state.? PANCREAS: Atrophic pancreas.? GASTROINTESTINAL TRACT: Small hiatal hernia. Large and small bowel are unremarkable.? The appendix is not identified however there are no secondary findings of appendicitis. IMPRESSION: No acute findings to extent symptoms of abdominal pain. A 1.4 cm nonspecific soft tissue nodule exophytic from the posterior margin of the right hepatic lobe, of indeterminate etiology. Recommend further evaluation with contrast-enhanced MR abdomen if there is no outside prior imaging available for comparison to assess stability. ? 10/2021 BARIUM SWALLOW SHOWED:Following oral administration of thick barium, barium-coated turkey,there is normal propagation of bolus from the oral cavity through thepharynx, esophagus into stomach without any evidence of obstruction, narrowing or stricture. There is a ventral plate and screws from C3 to C4 and C4 through C6 vertebra but no obstruction seen. No laryngeal penetration or aspiration seen. There are dual pacer electrodes in right atrium and right ventricle. ENDOSCOPIC STUDIES: 10/2021 EGD SHOWED: ESOPHAGUS: GE junction at 38 cms. No stricture, ring, esophagitis or Owens's. Biopsies ? Were obtained from proximal esophagus to check for EOE.? Esophageal balloon dilation was performed with a 20 mm (60 F) CRE balloon X 60 sec STOMACH:? Gastritis and multiple gastric polyps Plan:? Above findings were reviewed with the patient and GERD and Gastritis handouts were given in the discharge area BIOPSIES SHOWED: A.? Stomach, antrum, biopsy:? Antral-type mucosa with mild chronic inactive inflammation and focal intestinal metaplasia; negative for dysplasia; no Helicobacter organisms seen. B.? Stomach, polyps:? Fundic gland polyps with background mild chronic inactive inflammation; no Helicobacter organisms seen. C.? Esophagus, proximal, biopsy:? Squamous epithelium within normal limits; no inflammation seen; negative for eosinophilic esophagitis. 01/[address] REDDY: Digital rectal exam, sphincter tone was adequate. Video colonoscope wasintroduced without difficulty. It was navigated into the rectosigmoid. There was minor prolapse in this area making navigation somewhat slow. Prep was excellent. We proceeded through sigmoid, descending, transverse colon, hepatic flexure was extrinsic to the region of the proximal transverse colon. We were able to move through this area and enter the distal ascending colon, at which time, the scope started looping impeding advancement. With abdominal pressure, we were able to facilitate movement through the proximal ascending colon into the cecal cap. Appendiceal orifice was seen. Ileocecal valve was well seen. No mucosal abnormalities. Slow rotational views on withdrawing the scope. No polyps were visualized on this exam. Anorectal verge was clear. CURRENT RECOMMENDATIONS: Repeat asymptomatic screening in this patient will be 7 years. Suggestion also that the patient have fecal immunochemical testing (FIT) done at years 4 and 6. PAST GI HISTORY BY REVIEW OF MEDICAL RECORDS: 02/2020 PT WAS LAST SEEN BY DR REDDY:Ms. Charlotte Mcgovern is a 69 y/o female with pmhx GERD, tubular adenoma presenting for GI follow up. This is a televisit due to covid-19. ?She is taking Omeprazole, tolerating well. No breakthrough GERD symptoms. ? Her recent colonscopy was done in January 2020 showing no polyps.?Today, she is feeling well with no complaints.? No abd pain, n/v/d, constipation, rectal bleeding.? She states she has been experiencing intermittent lightheadedness that occurs about 5 times per week. When it occurs she says she feels like she will almost pass out. She denies any sensation of room spinning or poor balance. She has had no falls or episodes of syncope. She recently had repeat screening colonoscopy which was negative. She had initial colon CA screen in 2008 showing a tubular adenoma. Repeat colonoscopy in 2012 was negative for any polyps. Repeat in January 2020 negative as well. Suggest repeat asymptomatic screen in 7 years given she had no polyps seen on last two exams with FIT testing being done at years 4 and 6. She tolerated procedure in January well and iis feeling very well at this time with no reported?complaints [facility] Medical History CAD (coronary artery disease) Cardiac pacemaker in situ CVA (cerebral vascular accident) Gastroesophageal reflux disease HTN (hypertension) Paroxysmal atrial fibrillation Pulmonary nodules Screening for colon cancer Sick sinus syndrome Tubular adenoma of colon Surgical History Hx of endoscopy History of cardiac catheterization (~2011) History of permanent cardiac pacemaker placement (~10/2018) Hx of colonoscopy H/O esophagogastroduodenoscopy History of carpal tunnel release H/O tubal ligation Hx of cholecystectomy Family History Father CHF (congestive heart failure) CVA (cerebral vascular accident) Diabetes Chronic lung disease Cancer Mother CVD (cardiovascular disease) SLE exacerbation Sister Alcoholic pancreatitis Brother A-fib Daughter Morbidly obese IBS (irritable bowel syndrome) Social History Alcohol intake: current Alcohol intake frequency: 0-2 drinks per day Alcohol type: wine Patient Tobacco Use Status: Former Tobacco user Review of Systems Const All systems reviewed & are unremarkable except as noted in HPI and below Physical Exam Vital Signs: Last Vital Signs Pulse 72 02/01/25 11:35 BP 140/62 H 02/01/25 11:35 Pulse Ox 98 02/01/25 11:35 Oxygen Delivery Method Room Air 02/01/25 11:35 BMI result Body Mass Index 27.6 Const General: healthy appearing and no acute distress Nutritional Appearance: overweight Orientation/consciousness: patient oriented x3 HEENT Head: Yes normal to inspection Ears: hearing grossly normal bilaterally Eyes Sclerae: sclerae normal Pupils: Equal, round and reactive pupils present Neck Neck: Yes normal visual inspection Chest Chest palpation & inspection: normal inspection of the chest Resp Effort & Inspection: normal respiratory effort Auscultation: clear to auscultation bilaterally Cardio Palpation: normal PMI Rate: regular rate Rhythm: regular rhythm Heart sounds: S1 normal heart sound present, S2 normal heart sound present and no murmurs GI Palpation (GI): Soft to palpation, nontender and No hepatosplenomegaly present Auscultation: normal bowel sounds Rectal Exam - Female: deferred Skin General skin exam: no rashes or lesions noted Neuro General: patient oriented x3, gait normal and moves all extremities Cranial nerves: Yes Equal, round and reactive pupils present Psych Appearance: grossly normal Mental Status: mental status grossly normal Assessment & Plan Assessment & Plan (1) Screening for colon cancer: Comment: 01/2020 pt had a colonoscopy by Dr Reddy which was negative Repeat colonoscopy advised in 5 yrs (due on 01/2025) due to hx of tubular adenoma removed in 2008. Code(s): Z12.11 - Encounter for screening for malignant neoplasm of colon Category: Medical (2) Tubular adenoma of colon: Code(s): D12.6 - Benign neoplasm of colon, unspecified Category: Medical (3) Gastroesophageal reflux disease: Code(s): K21.9 - Gastro-esophageal reflux disease without esophagitis Category: Medical (4) Chronic constipation: Code(s): K59.09 - Other constipation Category: Medical (5) Dysphagia, pharyngoesophageal phase: Code(s): R13.14 - Dysphagia, pharyngoesophageal phase Category: Medical (6) Gastric intestinal 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: Code(s): K31.A19 - Gastric intestinal 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, unspecified site Category: Medical (7) Lesion of liver greater than 1 cm in diameter: Code(s): K76.9 - Liver disease, unspecified Category: Medical Plan 74 YF WITH HTN, CHRONIC AF (on Xarelto), cardiac pacemaker followed in GI for GERD, dysphagia, chronic constipation. Pt is status post dual chamber pacemaker for sick sinus syndrome in 2019. Her GERD medication was switched to a different preparation of Omeprazole which has not been effective in controlling her symptoms. Takes Senna if no BM for 3-4 days - she was advised to take it 3 times a week. Has not tried Linzess yet (has medication at home) and using Senna and stool softeners which are working. Pt has intermittent episodes of dull ache/pressure like pain in the center of her chest which wakes her up at night. Pain lasts a few min and pt is able to go back to sleep She had a coronary CTA 6 months ago which showed non-obstructive disease with up to 50% stenosis.? She has intermittent dysphagia with solid foods - toast and chicken. Barium swallow showed?normal propagation of bolus from the oral cavity through the pharynx, esophagus into stomach without any evidence of obstruction, narrowing or stricture. EGD showed gastritis and multiple gastric polyps and no stricture or ring noted in the esophgus. Antral biopsies showed intestinal metaplasia Repeat EGD in 3 yrs (can be scheduled with her next colonoscopy) Linaclotide 72 mcg daily or every other day for constipation (A copy of last chest CT scan given to the pt to take to her pulmonary clinic appt at [facility]) Pt is followed at [facility] Cardiology by Dr Claire Hinton who manages her anticoagulation with Xarelto. Pt is scheduled for an Abd US on 10/15/22 MRI was performed (Fu of liver lesions seen on recent abdominal CT scan.? MRCP to rule out CBD stone or sludge causing intermittent episodes of biliary type abdominal pain) and results as noted above 08/12/23 Took probiotics x 3 months and helped bigtime with constipation Stopped since she felt she was getting dependant on the probiotics. BMs are irregular and takes the Linzess when she has not had a BM or is passing pebble like stools. Takes Linzess 3-4 times a week - usually takes 3 days to work. Pt was advised to alternate Linzess with Senna every other day. 02/10/24 Pt advised to try increasing Linzess to 2 tab daily for a week to see if it is more effective without causing diarrhea. Pt had a small adenoma removed in 2008 and no polyps were detected during colonoscopies in 2012 and 2019 She was advised FU colon in 7 years Pt would like to schedule EGD and colon in 202508/10/24 Complains of constipation since she was unable to take Senna Only able to take Omeprazole purple pill which is not manufactured any more Other preparations cause nausea - advised to try Pantoprazole 02/01/25 Pt advised to check stool for pancreatic elastase to rule out pancreatic insufficiency Continue Linzess and senna for constipation and omeprazole for GERD. She is waiting to hear from GI schedulers to schedule EGD and Colon - GI Procedure notification order was placed Follow-up in 6 months Orders: Orders Pancreatic Elastase-1 02/02/25 K86.89 - Other specified diseases of pancreas Coding Level of Care Code Est Pt Level 3 (68240) Diagnoses Screening for colon cancer Z12.11 Tubular adenoma of colon D12.6 Gastroesophageal reflux disease K21.9 Chronic constipation K59.09 Dysphagia, pharyngoesophageal phase R13.14 Gastric intestinal 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 K31.A19 Lesion of liver greater than 1 cm in diameter K76.9 Time Spent (min) 18
[2025-02-01 11:35] VITALS: BP 140/62; PULSE 72; O2SAT 98; BMI 27.6
--- OUTSIDE RECORDS SUMMARY | 2025-02-01 13:37 | XMS_ITS | Encounter Summary ---
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 Name Role Phone Deny Cota Primary Care Provider [phone] Encounter Details Date Type Department Care Team (Late st Contact Info) Description 08/08/2021 Orders Only [facility] [address] [place] [address] [id number] Wilfred Candelaria MD [address] [place] [address] Social History Tobacco Use Types Packs/Day Years Used Date Smoking Tobacco: Never Smokeless Tobacco: Never Alcohol Use Standard Drinks/Week Comments Not Currently 0 (1 standard drink = 0.6 oz pur e alcohol) Comments Unknown Sex and Gender Information Value Date Recorded Sex Assigned at Female 08/17/2020 9:09 AM EDT Legal Sex Female 10:01 AM EDT Gender Identity Female 08/17/2020 9:09 AM EDT Sexual Orientation Bisexual 08/17/2020 9: 09 AM EDT documented as of this encounter Plan of Treatment Not on file documented as of this encounter Procedures * Due to [place] state law, this organization might not be sharing negative HIV tests. Procedure Name Priority Date/Time Associated Diagnosis Comments AMB EXTERNAL XR CHEST, OUTSI DE RESULT Routine 08/07/2021 documented in this encounter Results * Due to [place] [employer] law, this organization might not be sharing negative HIV tests. * XR Chest, Outside Result (08/07/2021) Anatomical Region Laterality Modality Other Wilfred Candelaria MD AMB EXTERNAL RESULT PROCEDURES Final Result documented in this encounter Visit Diagnoses Not on filedocumented in this encounter Care Teams Sawmill Relief Worker Relationship Specialty Start Date End Date Deny Cota [address] [place] [id number] PCP - General Internal Medicine 09/08/19 documented as of this encounter
--- OUTSIDE RECORDS SUMMARY | 2025-02-01 13:37 | XMS_ITS | Clinical Summary ---
Author Organization [facility] Address [address] [place] [address] Phone Care Team Providers Care Project Management Director Name Role Phone Bk Welch MD Primary Care Provider [phone] Allergies Active Allergy Reactions Criticality Noted Date Comments Ciprofloxacin Hcl 06/28/2024 Codeine Nausea And Vomiting 06/28/2024 Ketoconazole Unknown 2021 Meperidine Unknown 02/21/2021 Penicillins 06/28/2024 Medications ammonium lactate (AMLACTIN) 12 % cream APPLY 1 TO 2 TIMES DAILY TO DRY SKIN ON TRUNK AND EXTREMITIES 4 Active celecoxib (CeleBREX) 200 mg capsule Take 1 capsule (200 mg total) by mouth 1 (one) time each day. 4 Active cholecalcifero l (VITAMIN D-3) 25 mcg (1,000 unit) capsule Take 1 capsule (1,000 Units total) by mouth 1 (one) time each day. Active HYDROcodone-ac etaminophen (NORCO) 5-325 mg per tablet Take 1 tablet by mouth 2 (two) times a day if needed for severe pain. Max Daily Amount: 2 tablets 4 Active levothyroxine (SYNTHROID, LEVOTHROID) 25 mcg tablet Take 1 tablet (25 mcg total) by mouth 1 (one) time each day. Active methylPREDNISo lone (MEDROL DOSPAK) 4 mg tablet See administration instructions. 4 Active metoprolol succinate (TOPROL-XL) 25 mg 24 hr tablet Take 1 tablet (25 mg total) by mouth 1 (one) time each day. Active mirtazapine (REMERON) 7.5 mg tablet Take 2 tablets (15 mg total) by mouth. at bedtime Active montelukast (SINGULAIR) 10 mg tablet Take 1 tablet (10 mg total) by mouth 1 (one) time each day. Active omeprazole (PriLOSEC) [address] capsule Take 1 capsule (20 mg total) by mouth 2 (two) times a day. 5 Active Xarelto 20 mg tablet Take 1 tablet (20 mg total) by mouth. 4 Active senna 8.6 mg tablet Take 2 tablets (17.2 mg total) by mouth. at bedtime 4 Active valACYclovir (VALTREX) 1 gram tablet TAKE 1 TABLET BY MOUTH EVERY DAY FOR SUPPRESSION 4 Active ondansetron (ZOFRAN) 4 mg tablet Take 1 tablet (4 mg total) by mouth every 8 (eight) hours if needed for nausea or vomiting. Active Active Problems Problem Noted Date Diagnosed Date Spinal stenosis of lumbar re gion with neurogenic claudication 06/28/2024 Assessment & Plan (07/14/2024 11:25 AM EST): I reviewed the MRI findings in detail using a spine model to explain the L4-5 stenosis and what would be involved at surgery. She has questions about the recovery and the possibility of recurrent pain afterwards. I explained that patients report an 80 to 85% improvement in their symptoms after a decompression and recurrent stenosis at the same level takes about 20 years. We discussed the details, risks, benefits and anticipated postoperative course of an L4-5 decompression. She will stay overnight for observation as she lives alone. She was very concerned about postoperative nausea from anesthesia as this was a significant problem after her last surgery at [facility]. I would recommend a scopolamine patch and ondansetron PRN. All questions were answered and she wishes to proceed. Assessment & Plan (06/28/2024 12:04 PM EST): Ms. Mcgovern describes low back pain with radiation into the buttocks and down the backs of both legs. She also has pain in the medial thighs. She says that years ago Dr. Rea talked to her about her lumbar stenosis and told her that she might need surgery. She has been to physical therapy and had steroid injections in the past without relief. An MRI of the lumbar spine from [facility] from May 30, 2024 revealed L4-5 stenosis that was moderate to severe. Ms. Mcgovern reported a story from her last postoperative admission at [facility] where she had intractable nausea for several hours before receiving medication. She is very worried about the possibility of that happening again and is reluctant to have surgery at [facility] for that reason. She would like to come in and discuss things with Dr. Rea. We will schedule her an appointment. Mid back pain on right side 06/28/2024 Assessment & Plan (07/14/2024 11:28 AM EST): I reviewed the thoracic spine MRI with Ms. Mcgovern I believe her intrascapular pain is from the kyphosis and central disc at T7-8. Unfortunately, she did not improve after injections in that area in the past. I explained that disc surgery at this level is more complicated and done either from an anterior or lateral approach and would require a fusion. She is not myelopathic and I would not consider that surgery any further. She does not have canal stenosis at that level so simple decompression would not be of benefit. She will continue taking 1/2-1 tab hydrocodone as needed and may consider lidocaine patches. Assessment & Plan (06/28/2024 12:06 PM EST): Ms. Mcgovern describes mid back pain on the right side. It radiates around the right chest wall when she twists to the left. Her MRI of the thoracic spine from May 30, 2024 reveals a T7-8 disc herniation. She can discuss that with Dr. Rea when she comes in to meet with her. Surgical History Surgery Date Site/Laterality Comments CERVICAL SPINE SURGERY Medical History Medical History Date Comments Arthritis A-fib (CMS/HCC V24, CMS/HCC V28) CVA (cerebral vascular accid ent) (CMS/HCC V24, CMS/[facility] V28) cerebellar ischemic infarct 2009 ? Social History Tobacco Use Types Packs/Day Years Used Date Smoking Tobacco: Former Cigarettes Q uit: 1997 Smokeless Tobacco: Never Tobacco Cessation:Counseling Given: Not Answered Comments Unknown Sex and Gender Information Value Date Recorded Sex Assigned at Not on file Legal Sex Female 7:24 PM EST Gender Identity Not on file Sexual Orientation Not on file Obstetrics History Last Filed Vital Signs Vital Sign Reading Time Taken Comments Blood Pressure - - Pulse - - Temperature - - Respiratory Rate - - Oxygen Saturation - - Inhaled Oxygen Concentration - - Weight 70.3 kg (155 lb) 06/28/2024 10:25 AM EST Height 160 cm (5' 3 ) 06/28/2024 10:25 AM EST Body Mass Index 27.46 06/28/2024 10:25 AM EST Plan of Treatment Health Maintenance Due Date Last Done Comments DTaP,Tdap,and Td Vaccines (1 - Tdap) 1968 Pneumococcal Vaccine: 50+ Years (1 of 1 - PCV) 07/18/1999 Zoster Vaccines (1 of 2) 07/18/1999 Depression Screening 05/17/2024 Cholesterol Screening (Lipid Panel) 06/15/2024 Colorectal Cancer Screening: Colonoscopy 06/15/2024 Falls Risk Assessment 06/15/2024 Hepatitis C Screening 06/15/2024 Medicare Annual Wellness Visit 06/15/2024 Osteoporosis Screening (Bone Density Screening) 06/15/2024 Social Influencers of Health Screening 06/15/2024 Hypertension/CHF/CAD Annual BMP Blood Test 06/28/2024 RSV Immunization Adult Patients (1 - 1-dose 75+ series) 2024 COVID-19 Vaccine (3 - 2024-2 6 season) 2025 01/07/2021, 12/17/2020 Influenza Vaccine (#1) 2025 Hepatitis A Vaccines Completed 08/03/2018, 02/01/2018 Hepatitis B Vaccines Completed 08/03/2018, 03/04/2018, 02/01/2018 HIB Vaccines Aged Out No longer eligi ble based on patient's age to complete this topic HPV Vaccines Aged Out No longer eligi ble based on patient's age to complete this topic IPV Vaccines Aged Out No longer eligi ble based on patient's age to complete this topic MMR Vaccines Aged Out No longer eligi ble based on patient's age to complete this topic Meningococcal ACWY Vaccine Aged Out N o longer eligible based on patient's age to complete this topic Meningococcal B Vaccine Aged Out No l onger eligible based on patient's age to complete this topic RSV Immunization Patients Under 20 months Aged Out No longer eligible b ased on patient's age to complete this topic Varicella Vaccines Aged Out No longer eligible based on patient's age to complete this topic Insurance MEDICARE [facility] Care Teams Project Management Director Relationship Specialty Start Date End Date Bk Welch MD [facility] Zhang Willett Terrell [address] [place] [address] PCP - General Family Medicine 06/28/24
--- OUTSIDE RECORDS SUMMARY | 2025-02-01 13:37 | XMS_ITS | Encounter Summary ---
Author Organization [facility] Address [address] [place] [address] Care Team Providers Care Bridal Gown Fitter Name Role Phone Deny Cota Primary Care Provider [phone] Encounter Details Date Type Department Care Team (Late st Contact Info) Description 08/30/2021 myChart Message [facility] [address] [place], [place] [phone] Wilfred Candelaria MD [address] [place], [place] [phone] Cervical Spine MRI Social History Tobacco Use Types Packs/Day Years [...] on file documented as of this encounter Visit Diagnoses Not on filedocumented in this encounter Care Teams Bridal Gown Fitter Relationship Specialty Start Date End Date Deny Cota [address] [place] [id number] PCP - General Internal Medicine 09/08/19 documented as of this encounter
--- OUTSIDE RECORDS SUMMARY | 2025-02-01 13:38 | XMS_ITS | Clinical Summary ---
Author Organization [facility] Address [address] [place] [address] Care Team Providers Care Project Structural Engineer Name Role Phone Deny Cota Primary Care Provider Allergies Active Allergy Reactions Criticality Noted Date Comments Ciprofloxacin Anaphylaxis High 09/26/2019 Codeine Vomiting 09/26/2019 Ketoconazole Unknown 2021 Meperidine Unknown 02/21/2021 Penicillins Anaphylaxis High 09/26/2019 Medications celecoxib (CeleBREX) 200 mg capsule TK 1 C PO QD PRN P 0 Active levothyroxine (SYNTHROID, LEVOTHROID) 25 mcg tablet Take 25 mcg by mouth daily. 0 Active mirtazapine (REMERON) 7.5 mg tablet Take 7.5 mg by mouth nightly. at bedtime 0 Active montelukast (SINGULAIR) 10 mg tablet Take 10 mg by mouth daily. 9 Active omeprazole (PriLOSEC) 20 mg capsule TK 1 C PO BID 9 Active XARELTO 20 mg tablet TK 1 T PO ONCE QD WITH FOOD 0 Active valACYclovir (VALTREX) 1 gram tablet Take by mouth daily. 0 Active metoprolol succinate XL (TOPROL XL) 25 mg tablet Per pt take 50 mg daily 0 Active multivit-minerals /folic acid (CENTRUM MULTIGUMMIES ORAL) Take by mouth every other day. Active vitamin D3 25 mcg (1,000 unit) capsule Take 1 capsule by mouth daily. Active atorvastatin (LIPITOR) 10 mg tablet Per pt take 10 mg daily 1 Active estradioL (ESTRACE) 0.01 % (0.1 mg/gram) vaginal cream SMARTSI Gram(s) Vaginal Twice a Week 1 Active linaCLOtide (LINZESS) 145 mcg capsule Take 1 capsule by mouth as needed. 2 Active Active Problems Problem Noted Date Diagnosed Date Angular cheilitis 07/25/2021 Carpal tunnel syndrome 07/25/2021 Disorder of paranasal sinus 07/25/2021 Incontinence 07/25/2021 Peripheral visual field defect 07/25/2021 Overview (07/25/2021): normal neuropthalmologic exam DR Nguyen ;2017 Sick sinus syndrome 07/25/2021 Constipation 07/08/2021 Herpes simplex virus (HSV) infection 07/08/2021 Cardiac pacemaker 07/02/2021 Gastroesophageal reflux disease 07/02/2021 Hypercholesterolemia 07/02/2021 Hypothyroidism 07/02/2021 Visual hallucinations 03/27/2021 Cerebellar stroke 03/27/2021 History of stroke with residual effects 03/27/20 Pre-syncope 03/27/2021 Raynaud phenomenon 03/27/2021 Chronic pain of left upper extremity 12/16/2020 Middle cerebral artery stenosis, right Atrial fibrillation 12/05/2020 Spinal stenosis 12/05/2020 Alteration in sensory perception as evidenced by illusions 12/05/2020 Aphasia 12/05/2020 Ataxia 12/05/2020 Impaired fasting glucose 07/05/2020 Raynaud's disease 06/06/2020 Stenosis of intracranial por tions of right internal carotid artery 11/28/2019 Fatty liver 01/25/2018 Family History Medical History Relation Name Comments Diabetes Brother COPD Father Colon cancer Father Diabetes Father Heart failure Father Stroke Father Angina Mother Lupus Mother Relation Name Status Comments Brother Alive Father Mother Social History Tobacco Use Types Packs/Day Years [...] Orientation Bisexual 08/17/2020 9: 09 AM EDT Last Filed Vital Signs Vital Sign Reading Time Taken Comments Blood Pressure 135/76 01/29/2022 10:39 AM EDT Pulse 73 01/29/2022 10:39 AM EDT Temperature 36.3 C (97.3 F) 01/29/2022 10:39 AM EDT Respiratory Rate 16 01/29/2022 10:39 AM EDT Oxygen Saturation - - Inhaled Oxygen Concentration - - Weight 69.9 kg (154 lb) 01/29/2022 10:39 AM EDT Height 161.3 cm (5' 3.5 ) 01/29/2022 10:39 AM ED T Body Mass Index 26.85 01/29/2022 10:39 AM EDT Plan of Treatment Health Maintenance Due Date Last Done Comments Cologuard 1950 Colon Cancer Screening 1950 Colonoscopy 1950 FOBT / Fit Test 1950 Hepatitis C Screening 1950 Sigmoidoscopy 1950 Medicare AWV 1951 DTaP,Tdap,and Td Vaccines (1 - Tdap) 07/18/1971 Osteoporosis Screening 07/18/1999 Pneumococcal Vaccine: 50+ Ye ars (1 of 1 - PCV) 07/18/1999 Zoster Vaccines (1 of 2) 07/18/1999 Alcohol/Substance Use Screening 05/17/2024 Depression Screening and Follow-Up 05/17/2024 Health Care Proxy Review 05/17/2024 Social Drivers of Health Thais ual Screening 05/17/2024 RSV Vaccine (60+ years old a nd patients) (1 - 1-dose 75+ series) 2024 COVID-19 Vaccine (3 - 2024- season) 2025, 12/17/2020 Influenza Vaccine (#1) 2025 Hepatitis B Vaccines Completed 08/03/2018, 03/04/2018, 02/01/2018 Insurance MEDICARE [facility] Care Teams Project Structural Engineer Relationship Specialty Start Date End Date Deny Cota [address] [place] [id number] PCP - General Internal Medicine 09/08/19
--- OUTSIDE RECORDS SUMMARY | 2025-02-01 13:38 | XMS_ITS | Encounter Summary ---
Author Organization [facility] Address [address] [place] [address] Care Team Providers Care Aluminum Container Tester Name Role Phone SandrayaraDeny cleary Primary Care Provider [phone] Encounter Details Date Type Department Care Team (Late st Contact Info) Description 03/31/2021 myChart Message [facility] [address] [place] [address] Niko Shore MD PhD [address] [place] [address] Candelaria Social History Tobacco Use Types Packs/Day Years [...] on filedocumented in this encounter Care Teams Aluminum Container Tester Relationship Specialty Start Date End Date Deny Cota [address] [place] [id number] PCP - General Internal Medicine 09/08/19 documented as of this encounter
--- OUTSIDE RECORDS SUMMARY | 2025-02-01 13:38 | XMS_ITS | Encounter Summary ---
Author Organization [facility] Address [address] [place] [address] Care Team Providers Care Insurance Claims Supervisor Name Role Phone SandrayaraDeny cleary Primary Care Provider [phone] Encounter Details Date Type Department Care Team (Late st Contact Info) Description 12/05/2020 myChart Message [facility] [address] [place] [address] Niko Shore MD PhD [address] [place], [place] [phone] RE: Test Results Question Social History Tobacco Use Types Packs/Day Years [...] on filedocumented in this encounter Care Teams Insurance Claims Supervisor Relationship Specialty Start Date End Date Deny Cota [address] [place] [phone] PCP - General Internal Medicine 09/08/19 documented as of this encounter
--- OUTSIDE RECORDS SUMMARY | 2025-02-01 13:38 | XMS_ITS | Encounter Summary ---
Author Organization [facility] Address [address] [place] [address] Care Team Providers Care Educational Institution President Name Role Phone SandrayaraDeny cleary Primary Care Provider [phone] Encounter Details Date Type Department Care Team (Late st Contact Info) Description 05/04/2021 myChart Message [facility] [address] [place] [address] Niko Shore MD PhD [address] [place], [place] [phone] DR UMANA Social History Tobacco Use Types Packs/Day Years [...] on filedocumented in this encounter Care Teams Educational Institution President Relationship Specialty Start Date End Date Deny Cota [address] [place] [phone] PCP - General Internal Medicine 09/08/19 documented as of this encounter
== END 2025-02-01 12:46 | disposition home or self-care (01) ==
LOC: HO.HGI 11:22
PROVIDERS: PCP Family Medicine; Visit Provider Internal Medicine Gastroenterology
DX: K21.9 Gastro-esophageal reflux disease without esophagitis (principal); K59.09 Other constipation; R13.14 Dysphagia, pharyngoesophageal phase; K31.A19 Gastric intestinal 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, unspecified site; K76.9 Liver disease, unspecified
CPT/HCPCS: 99213

== ENCOUNTER → 2025-02-01 11:21 | Outpatient (BNVA) | payer MEDICARE, SELFPAY | PROVIDERS: PCP Family Medicine; Visit Provider Internal Medicine Gastroenterology | DX: Z12.11 Encounter for screening for malignant neoplasm of colon (principal); K21.9 Gastro-esophageal reflux disease without esophagitis; K59.09 Other constipation; K31.A19 Gastric intestinal 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, unspecified site; K76.9 Liver disease, unspecified; D12.6 Benign neoplasm of colon, unspecified; R13.14 Dysphagia, pharyngoesophageal phase | CPT/HCPCS: 99212 ==

== ENCOUNTER 2025-02-02 16:54 | Outpatient (REF) | payer MEDICARE, SELFPAY ==
--- OUTSIDE RECORDS SUMMARY | 2025-02-02 16:58 | XMS_ITS | Encounter Summary ---
Author Organization [facility] Address [address] [place] [address] Care Team Providers Care Cardroom Hand Name Role Phone SandrayaraDeny cleary Primary Care Provider [phone] Encounter Details Date Type Department Care Team (Late st Contact Info) Description 05/04/2021 myChart Message [facility] [address] [place] [address] Niko Shore MD PhD [address] [place], [place] [phone] DR UMANA Social History Tobacco Use Types [...] on filedocumented in this encounter Care Teams Cardroom Hand Relationship Specialty Start Date End Date Deny Cota [address] [place] [phone] PCP - General Internal Medicine 09/08/19 documented as of this encounter
--- OUTSIDE RECORDS SUMMARY | 2025-02-02 16:58 | XMS_ITS | Clinical Summary ---
Author Organization [facility] Address [address] [place] [address] Care Team Providers Care Communications Agent Name Role Phone Deny Cota Primary Care Provider [phone] Allergies Active Allergy Reactions Criticality Noted Date [...] Vaccines Completed 08/03/2018, 03/04/2018, 02/01/2018 Insurance MEDICARE [facility] Care Teams Communications Agent Relationship Specialty Start Date End Date Deny Cota [address] [place] [phone] PCP - General Internal Medicine 09/08/19
--- OUTSIDE RECORDS SUMMARY | 2025-02-02 16:58 | XMS_ITS | Encounter Summary ---
Author Organization [facility] Address [address] [place] [address] Care Team Providers Care Life Skills Specialist Name Role Phone SandrayaraDeny cleary Primary Care Provider [phone] Encounter Details Date Type Department Care Team (Late st Contact Info) Description 03/31/2021 myChart Message [facility] [address] [place] [address] Niko Shore MD PhD [address] [place] [address] Candelaria Social [...] on filedocumented in this encounter Care Teams Life Skills Specialist Relationship Specialty Start Date End Date Deny Cota [address] [place] [id number] PCP - General Internal Medicine 09/08/19 documented as of this encounter
--- OUTSIDE RECORDS SUMMARY | 2025-02-02 16:58 | XMS_ITS | Encounter Summary ---
Author Organization [facility] Address [address] [place] [address] Care Team Providers Care Clinical Sales Consultant Name Role Phone Deny Cota Primary Care Provider [phone] Encounter Details Date Type Department Care Team (Late st Contact Info) Description 08/08/2021 Orders Only [facility] [address] [place] [phone] Wilfred Candelaria MD [address] [place] [address] Social History Tobacco Use Types Packs/Day Years [...] of this encounter Procedures * Due to [place] state law, this organization might not be sharing negative HIV tests. Procedure Name Priority Date/Time Associated Diagnosis Comments AMB EXTERNAL XR CHEST, OUTSI DE RESULT Routine 08/07/2021 documented in this encounter Results * Due to [place] [email or web address] law, this organization might not be sharing negative HIV tests. * XR Chest, Outside Result (08/07/2021) Anatomical Region Laterality Modality Other Wilfred Candelaria MD AMB EXTERNAL RESULT PROCEDURES Final Result documented in this encounter Visit Diagnoses Not on filedocumented in this encounter Care Teams Clinical Sales Consultant Relationship Specialty Start Date End Date Deny Cota [address] [place] [phone] PCP - General Internal Medicine 09/08/19 documented as of this encounter
--- OUTSIDE RECORDS SUMMARY | 2025-02-02 16:58 | XMS_ITS | Encounter Summary ---
Author Organization [facility] Address [address] [place] [address] Care Team Providers Care Buttermaker Name Role Phone SandrayaraDeny cleary Primary Care Provider [phone] Encounter Details Date Type Department Care Team (Late st Contact Info) Description 12/05/2020 myChart Message [facility] [address] [place] [address] Niko Shore MD PhD [address] [place], [place] [phone] RE: Test Results Question Social History Tobacco [...] on filedocumented in this encounter Care Teams Buttermaker Relationship Specialty Start Date End Date Deny Cota [address] [place] [id number] PCP - General Internal Medicine 09/08/19 documented as of this encounter
--- OUTSIDE RECORDS SUMMARY | 2025-02-02 16:58 | XMS_ITS | Clinical Summary ---
Author Organization [facility] Address [address] [place] [address] Phone Care Team Providers Care Hebrew Professor Name Role Phone Bk Welch MD Primary Care Provider [phone] Allergies Active Allergy Reactions Criticality Noted Date [...] significant problem after her last surgery at [facility]. I would recommend a scopolamine patch and [...] An MRI of the lumbar spine from [facility] from May 30, 2024 revealed L4-5 stenosis that was moderate to severe. Ms. Mcgovern reported a story from her last postoperative admission at [facility] where she had intractable nausea for several hours before receiving medication. She is very worried about the possibility of that happening again and is reluctant to have surgery at [facility] for that reason. She would like to [...] CVA (cerebral vascular accid ent) (CMS/HCC V24, CMS/[facility] V28) cerebellar ischemic infarct 2009 ? Social [...] age to complete this topic Insurance MEDICARE [facility] Care Teams Hebrew Professor Relationship Specialty Start Date End Date Bk Welch MD [facility] Zhang Willett Terrell [address] [place] [address] PCP - General Family Medicine 06/28/24
--- OUTSIDE RECORDS SUMMARY | 2025-02-02 16:58 | XMS_ITS | Encounter Summary ---
Author Organization [facility] Address [address] [place] [address] Care Team Providers Care Link Knitting Machine Operator Name Role Phone Deny Cota Primary Care Provider [phone] Encounter Details Date Type Department Care Team (Late st Contact Info) Description 08/30/2021 myChart Message [facility] [address] [place], [place] [phone] Wilfred Candelaria MD [address] [place], [place] [phone] Cervical Spine MRI Social History Tobacco Use [...] on filedocumented in this encounter Care Teams Link Knitting Machine Operator Relationship Specialty Start Date End Date Deny Cota [address] [place] [phone] PCP - General Internal Medicine 09/08/19 documented as of this encounter
== END 2025-02-02 16:55 | disposition home or self-care (01) ==
LOC: HO.LNP 16:54
PROVIDERS: Visit Provider Internal Medicine Gastroenterology
DX: K86.89 Other specified diseases of pancreas (principal)
CPT/HCPCS: 82656

== ENCOUNTER 2025-03-30 07:34 | Day surgery (SDC) | payer MEDICARE, SELFPAY ==
--- OUTSIDE RECORDS SUMMARY | 2025-03-06 16:40 | XMS_ITS | Encounter Summary ---
Author Organization [facility] Address [address] [place] [address] Care Team Providers Care Pantomimist Name Role Phone Deny Cota Primary Care Provider [phone] Encounter Details Date Type Department Care Team (Late st Contact Info) Description 08/08/2021 Orders Only [facility] [address] [place] [address] [phone] Wilfred Candelaria MD [address] [place] [address] Social History Tobacco Use Types Packs/Day Years [...] of this encounter Procedures * Due to [place] state law, this organization might not be sharing negative HIV tests. Procedure Name Priority Date/Time Associated Diagnosis Comments AMB EXTERNAL XR CHEST, OUTSI DE RESULT Routine 08/07/2021 documented in this encounter Results * Due to [place] [employer] law, this organization might not be sharing negative HIV tests. * XR Chest, Outside Result (08/07/2021) Anatomical Region Laterality Modality Other Wilfred Candelaria MD AMB EXTERNAL RESULT PROCEDURES Final Result documented in this encounter Visit Diagnoses Not on filedocumented in this encounter Care Teams Pantomimist Relationship Specialty Start Date End Date Deny Cota [address] [place] [phone] PCP - General Internal Medicine 09/08/19 documented as of this encounter
--- OUTSIDE RECORDS SUMMARY | 2025-03-06 16:41 | XMS_ITS | Clinical Summary ---
Author Organization [facility] Address [address] [place] [address] Care Team Providers Care Route Relief Driver Name Role Phone Deny Cota Primary Care Provider [phone] Allergies Active Allergy Reactions Criticality Noted Date [...] Colonoscopy 1949 FOBT / Fit Test 1949 Sigmoidoscopy 1949 DTaP,Tdap,and Td Vaccines (1 - Tdap) 07/18/1971 Osteoporosis Screening 07/18/1999 Pneumococcal Vaccine: 50+ Ye ars (1 of 1 - PCV) 07/18/1999 Zoster Vaccines (1 of 2) 07/18/1999 Alcohol/Substance Use Screening 05/17/2024 Health Care Proxy Review 05/17/2024 RSV Vaccine (60+ years old a nd patients) (1 - 1-dose 75+ series) 2024 COVID-19 Vaccine (3 - season) 2025, 12/17/2020 Influenza Vaccine (#1) 2025 Hepatitis B Vaccines Completed 08/03/2018, 03/04/2018, 02/01/2018 Insurance MEDICARE [facility] SUPP Care Teams Route Relief Driver Relationship Specialty Start Date End Date Deny Cota [address] [place] [id number] PCP - General Internal Medicine 09/08/19
--- OUTSIDE RECORDS SUMMARY | 2025-03-06 16:41 | XMS_ITS | Encounter Summary ---
Author Organization [facility] Address [address] [place] [address] Care Team Providers Care Artificial Pearl Maker Name Role Phone Deny Cota Primary Care Provider Encounter Details Date Type Department Care Team (Late st Contact Info) Description 08/30/2021 myChart Message [facility] [address] [place], [place] [phone] Wilfred Candelaria MD [address] [place], [place] [phone] Cervical Spine MRI Social History Tobacco Use [...] on filedocumented in this encounter Care Teams Artificial Pearl Maker Relationship Specialty Start Date End Date Deny Cota [address] [place] [id number] PCP - General Internal Medicine 09/08/19 documented as of this encounter
--- OUTSIDE RECORDS SUMMARY | 2025-03-06 16:41 | XMS_ITS | Encounter Summary ---
Author Organization [facility] Address [address] [place] [address] Care Team Providers Care Music Teacher Name Role Phone SandrayaraDeny cleary Primary Care Provider [phone] Encounter Details Date Type Department Care Team (Late st Contact Info) Description 03/31/2021 myChart Message [facility] [address] [place] [address] Niko Shore MD PhD [address] [place] [address] Candelaria Social [...] on filedocumented in this encounter Care Teams Music Teacher Relationship Specialty Start Date End Date Deny Cota [address] [place] [id number] PCP - General Internal Medicine 09/08/19 documented as of this encounter
--- OUTSIDE RECORDS SUMMARY | 2025-03-06 16:41 | XMS_ITS | Patient Health Record ---
[facility] Address [address] [place] [address] Care Team Providers Care Room Cleaner Name Role Phone Deny Cota MD Primary Care Provider Unava ilFrancois Crystal Unavailable [phone] Allergies Allergen (clinical drug ingredient) Drug/Non Drug Allergy documented on EMR Reaction Allergy Type Onset Date Status ciprofloxacin Cipro Unknown Drug Allergy Act evgeny meperidine Demerol Unknown Drug Allergy Active Levaquin Anaphylaxis-Tish ers Yeast Drug Allergy Active codeine Codeine Unknown Drug Allergy Active Penicillin Anaphylaxis-Tish ers Yeast Drug Allergy Active Reason For Referral No Information Medications Medication SIG (Take, Route, Frequency, Duration) Notes Start Date End Date Status Montelukast Sodium 10 MG 1 tablet Orally Once a day; Duration: 30 day(s) Active valACYclovir HCl 1 GM 1 tablet Orally On ce a day; Duration: 10 day(s) Active Senna 8.6 MG 2 tablets at bedtime as needed Orally Once a day; Duration: 30 day(s) Active Omeprazole 20 MG 1 capsule 30 minutes before morning meal Orally Once a day; Duration: 30 day(s) Active Metoprolol Succinate 25 MG 1 capsule Ora lly Once a day; Duration: 30 day(s) Active Centrum MultiGummies Active Estradiol Active Flecainide Acetate 100 MG as directed Orally Not-Taking Atorvastatin Calcium Active Xarelto 20 MG 1 tablet Orally Once a day Active Vitamin D3 Active Levothyroxine Sodium Active Celecoxib 200 MG 1 capsule with food Orally Once a day; Duration: 30 day(s) Active Immunizations Vaccine Route Administration Date Status Comme nts Influenza Unknown 05/02/2021 Refused COVID-19 Pfizer BioNTech Vaccine Unknown 01/07/2021 Administered 1st 12/17/2020 Social History Tobacco Use: Social History Observation Description Date Details (start date - stop date) Former Smoker NA - 05/17/1997 Tobacco Use/Smoking Question Answer Notes Are you a: former smoker When did you stop smoking? 05/17/1997 Additional Findings: Tobacco Non-User Current no n-smoker Alcohol Screen Question Answer Notes Did you have a drink containing alcohol in the p ast year? Yes Points 0 Interpretation Negative Tobacco use other than smoking: Question Answer Notes Are you an other tobacco user? No Problems Problem Type SNOMED Code ICD Code Onset Dates Problem Status W/U Status Risk Notes Problem Tinea unguium (070893781) Tinea unguium (B35.1) Active confirmed Plan Of Treatment Pending Test Test Name Order Date [id number] NAIL, 6 OR MORE 09/06/2020 [id number] NAIL, 6 OR MORE 12/06/2020 [id number] NAIL, 6 OR MORE 02/21/2021 [id number] NAIL, 6 OR MORE 05/02/2021 [id number] NAIL, 6 OR MORE 08/05/2021 [id number] NAIL, 6 OR MORE 06/14/2020 [id number] Plate 06/14/2020 [id number] Plate Each Additional Insurance Providers Payer Name Payer Address Payer Phone Subscriber Number Group Number Insured Name Patient Relationship to Insured Coverage Start Date Coverage End Date Medicare National Gov[employer] [address] [place] [address] [id number] Charlotte Mcgovern Self - patient is the insured [employer] [address] [place] [address] [phone] [id number] Charlotte Mcgovern Self - patient is the insured Medical (General) History Medical History History ICD Code Arthritis asthma Back,Hip,and Knee pain Broken bones Cholesterol Cataracts Gall bladder problems Heart disease - Afib Liver disease Lupus Neuropathy raynauds disease Reflux ( GERD) chronic sinusitis Stroke thyroid Measles Chicken pox Pacemaker Joint implants/screws covid-19 Surgical History Surgery Date(Month/Year) gall bladder 1968 spine surgery- C3-4 2007 Spine Surgery - C4-5, C5-6 2017
--- OUTSIDE RECORDS SUMMARY | 2025-03-06 16:41 | XMS_ITS | Encounter Summary ---
Author Organization [facility] Address [address] [place] [address] Care Team Providers Care Wafer Batter Mixer Name Role Phone SandrayaraDeny cleary Primary Care Provider [phone] Encounter Details Date Type Department Care Team (Late st Contact Info) Description 12/05/2020 myChart Message [facility] [address] [place] [address] Niko Shore MD PhD [address] [place], [place] [phone] RE: Test Results Question Social History Tobacco [...] on filedocumented in this encounter Care Teams Wafer Batter Mixer Relationship Specialty Start Date End Date Deny Cota [address] [place] [id number] PCP - General Internal Medicine 09/08/19 documented as of this encounter
--- OUTSIDE RECORDS SUMMARY | 2025-03-06 16:41 | XMS_ITS | Encounter Summary ---
Author Organization [facility] Address [address] [place] [address] Care Team Providers Care Security Intern Name Role Phone SandrayaraDeny cleary Primary Care Provider [phone] Encounter Details Date Type Department Care Team (Late st Contact Info) Description 05/04/2021 myChart Message [facility] [address] [place] [address] Niko Shore MD PhD [address] [place], [place] [phone] DR UMANA Social History Tobacco Use Types [...] on filedocumented in this encounter Care Teams Security Intern Relationship Specialty Start Date End Date Deny Cota [address] [place] [phone] PCP - General Internal Medicine 09/08/19 documented as of this encounter
--- NOTE | 2025-03-27 10:05 | HO.ANESPROP2 ---
Documented by User: Rocío Mcbride NP 03/27/25 10:17 HPI - Anesthesia Eval Consult details Narrative: 74yo F for Upper Endoscopy and Colonoscopy Cardiac optimized. Follows [facility] cardiology for SSS with pacer, PAF, CAD. Ongoing W/U 4-5 years for HELMS - all testing, including cath OK. No change in symptoms at last office visit from start of symptoms. 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 (Acute) Chest pain, atypical (Acute) Dysphagia, pharyngoesophageal phase (Acute) Chronic constipation (Acute) Dizziness (Acute) SOB (shortness of breath) (Acute) Gastroesophageal reflux disease (Acute) Tubular adenoma of colon (Acute) Screening for colon cancer (Acute) Past Medical History Medical History Raynaud disease Justyna's disease CAD (coronary artery disease) Pulmonary nodules HTN (hypertension) Paroxysmal atrial fibrillation Sick sinus syndrome Cardiac pacemaker in situ CVA (cerebral vascular accident) Gastroesophageal reflux disease Tubular adenoma of colon Family History Family History Father CHF (congestive heart failure) CVA (cerebral vascular accident) Diabetes Chronic lung disease Cancer Mother CVD (cardiovascular disease) SLE exacerbation Sister Alcoholic pancreatitis Brother A-fib Daughter Morbidly obese IBS (irritable bowel syndrome) Family history of problems with anesthesia: No Surgical History Surgical History History of lumbar laminectomy History of cardiac catheterization (~2011) History of permanent cardiac pacemaker placement (~10/2018) Hx of colonoscopy H/O esophagogastroduodenoscopy History of carpal tunnel release H/O tubal ligation Hx of cholecystectomy History of Problems with Anesthesia: No Social History Social History Alcohol intake: current Alcohol intake frequency: 0-2 drinks per day Alcohol type: wine Patient Tobacco Use Status: Former Tobacco user Use of substances other than those prescribed or required for medical reasons: No Are you DNR?: No Advance Directives: No Advance Directives Information Provided: Yes Meds Allergies Allergy/AdvReac Type Severity Reaction Status Date / Time Penicillins Allergy Severe ANAPHYLAXIS Verified 03/30/25 07:56 codeine (Codeine) Allergy Intermediate SEVERE Verified 03/30/25 07:56 VOMITING, vomiting ciprofloxacin (CIPROFLOXACIN) Allergy Unknown ANAPHYLAXIS Verified 03/30/25 07:56 neomycin (NEOMYCIN) Allergy Unknown BURNING Verified 03/30/25 07:56 SENSATION Home Medications ?Medication ?Instructions ?Recorded ?Confirmed ?Last Taken ?Type levothyroxine 25 mcg tablet 25 mcg PO DAILY 03/04/20 03/30/25 Unknown History valacyclovir 1 gram tablet 1,000 mg PO DAILY 03/04/20 03/30/25 Unknown History cholecalciferol (vitamin D3) 25 25 mcg PO DAILY 06/26/20 03/30/25 Unknown History mcg (1,000 unit) capsule atorvastatin 10 mg tablet 10 mg PO DAILY 03/03/21 03/30/25 Unknown History estradiol 0.01% (0.1 mg/gram) 1 appl vaginal DAILY 07/30/22 03/30/25 Unknown History vaginal cream hydrocodone 5 mg-acetaminophen 325 1 tab PO BID PRN Back Pain 07/30/22 03/30/25 Unknown History mg tablet mirtazapine 7.5 mg tablet 7.5 mg PO BEDTIME 03/28/25 03/30/25 Unknown History montelukast 10 mg tablet 10 mg PO BEDTIME 03/28/25 03/30/25 Unknown History ondansetron 4 mg disintegrating 4 mg PO Q8H PRN nausea/vomiting 03/30/25 03/30/25 Unknown History tablet Exam Narrative Narrative: Pacer Interr 01/2025 [facility] DDDR 70-130 Nml Lead and device function <1% AF burden AP-VS 91% CPET 2024 Conclusion: Normal exercise capacity and mildly impaired aerobic capacity. The EKG showed evidence of reversible ischemia. The finding of not having heart rate, minute ventilation, maximal VO2 near predicted maximum, or RER > 1.15 suggests a suboptimal effort or muscular weakness. The finding of breathing reserve (38%) well over 20% is consistent with there not being a pulmonary glen limitation to exercise. However, there was significant dyspnea at peak exercise. The finding of early anaerobic threshold, low heart rate with exertion suggests cardiovascular limitation to exercise. Note that there are differences in values from [facility] to those used in [employer] reports, with [employer] analysis of this study having work 64 jacobo, peak VO2 0.912 L/min, VO2 at AT of 0.713 L/min, and VE/VCO2 slope of 37.0. Cardiac Cath 2021 Conclusions Interventional Summary There is no significant gradient on pullback across the aortic valve. Successful hemostasis of the right radial artery using a radial compression device. Successful hemostasis of the right brachial vein using manual compression. iFR evaluation of the LAD coronary artery was 0.97, which is consistent with a non-hemodynamically significant lesion. Compared to a coronary angiogram from December 24, 2011 minimal progression of disease in the LAD territory. Resting he dynamics: Mean PA 14 mmHg Mean PCW 6 mmHg Mean RA 2 mmHg MAP 98 mmHg LVEDP 6 mmHg CO/CI (indirect Earline) 5.4/3.1 with a hemoglobin of 11.8 mg/dL PA sat of 66.1% Interventional Recommendations Risk factor modification according to best available evidence. Continue to maximize medical therapy. Normal left and right filling pressures at rest. Patient with history of dyspnea with exertion per patient for 4 to 5 years however she had a diagnostic cardiac catheterization December 24, 2011 for shortness of breath and chest discomfort. She states that her discomfort is intermittent with no mitigating or exacerbating symptoms. She does have an abnormal pulmonary function test. Further work-up per primary team. ECG 12-Lead ? 13:55:49 Please click on pdf link to open report ? Signed By: Claire Hinton MD ? ECG 12-Lead ? 13:55:49 Ventricular Rate: 70 BPM Atrial Rate: 70 BPM P-R Interval: 204 ms QRS Duration: 66 ms Q-T Interval: 380 ms QTC Calculation(Bazett): 410 ms P [place]: 9 degrees R [place]: 41 degrees T [place]: 63 degrees Atrial-paced rhythm Nonspecific ST abnormality Abnormal ECG When compared with ECG of 15-DEC-2021 07:53, No significant change was found Confirmed ? Signed By: Mary Jane MD, Claire A Stress Test No qualifying data available. EchoEchocardiogram - Complete ? 12:44:04 Summary The left atrial size is at the upper limit of normal. The right ventricle is normal in size and function. A right heart pacemaker wire is seen in the right ventricle. The left ventricular size is normal. Left ventricular wall thickness is normal. The LV systolic function is normal . The left ventricular ejection fraction is 60-65 %. There are no regional wall motion abnormalities. Grade I, mild diastolic dysfunction with impaired LV relaxation, which may be normal for the patient?s age. The pulmonary artery systolic pressure estimation is within normal limits. Comparison No prior study available for comparison. Assessment and Plan Assessment Anesthesia Assessment: Chart Reviewed Final Anesthetic Review Family History of Problems with Anesthesia: No History of Problems with Anesthesia: No Documented by User: Jaun Jason MD 03/30/25 10:28 [facility] Past Medical History Medical History Raynaud disease Justyna's disease CAD (coronary artery disease) Pulmonary nodules HTN (hypertension) Paroxysmal atrial fibrillation Sick sinus syndrome Cardiac pacemaker in situ CVA (cerebral vascular accident) Gastroesophageal reflux disease Tubular adenoma of colon Functional capacity: independent ambulation Family History Family History Father CHF (congestive heart failure) CVA (cerebral vascular accident) Diabetes Chronic lung disease Cancer Mother CVD (cardiovascular disease) SLE exacerbation Sister Alcoholic pancreatitis Brother A-fib Daughter Morbidly obese IBS (irritable bowel syndrome) Surgical History Surgical History History of lumbar laminectomy History of cardiac catheterization (~2011) History of permanent cardiac pacemaker placement (~10/2018) Hx of colonoscopy H/O esophagogastroduodenoscopy History of carpal tunnel release H/O tubal ligation Hx of cholecystectomy Social History Social History Alcohol intake: current Alcohol intake frequency: 0-2 drinks per day Alcohol type: wine Patient Tobacco Use Status: Former Tobacco user Use of substances other than those prescribed or required for medical reasons: No Are you DNR?: No Advance Directives: No Advance Directives Information Provided: Yes Meds Allergies Allergy/AdvReac Type Severity Reaction Status Date / Time Penicillins Allergy Severe ANAPHYLAXIS Verified 03/30/25 07:56 codeine (Codeine) Allergy Intermediate SEVERE Verified 03/30/25 07:56 VOMITING, vomiting ciprofloxacin (CIPROFLOXACIN) Allergy Unknown ANAPHYLAXIS Verified 03/30/25 07:56 neomycin (NEOMYCIN) Allergy Unknown BURNING Verified 03/30/25 07:56 SENSATION Home Medications ?Medication ?Instructions ?Recorded ?Confirmed ?Last Taken ?Type levothyroxine 25 mcg tablet 25 mcg PO DAILY 03/04/20 03/30/25 Unknown History valacyclovir 1 gram tablet 1,000 mg PO DAILY 03/04/20 03/30/25 Unknown History cholecalciferol (vitamin D3) 25 25 mcg PO DAILY 06/26/20 03/30/25 Unknown History mcg (1,000 unit) capsule atorvastatin 10 mg tablet 10 mg PO DAILY 03/03/21 03/30/25 Unknown History estradiol 0.01% (0.1 mg/gram) 1 appl vaginal DAILY 07/30/22 03/30/25 Unknown History vaginal cream hydrocodone 5 mg-acetaminophen 325 1 tab PO BID PRN Back Pain 07/30/22 03/30/25 Unknown History mg tablet mirtazapine 7.5 mg tablet 7.5 mg PO BEDTIME 03/28/25 03/30/25 Unknown History montelukast 10 mg tablet 10 mg PO BEDTIME 03/28/25 03/30/25 Unknown History ondansetron 4 mg disintegrating 4 mg PO Q8H PRN nausea/vomiting 03/30/25 03/30/25 Unknown History tablet Exam Exam Date and Time: 03/30/25 Airway Mallampati Class: II TM Dist: >3cm Neck ROM: Full Denture: Upper Loose/Missing/Broken Teeth: No Heart: normal Lungs: normal Other: normal Assessment and Plan Assessment Anesthesia Assessment: Anesthesia Plan Discussed Final Anesthetic Review NPO: Yes ASA Class: II Final Preanesthetic Review: No Changes in Pt Med Stat, Meds/Allgs Chart Reviewed and Consent Obtained/Reviewed Patient Risk: Low Anesthetic Plan Anesthetic Plan: MAC: Disposition: Standard PACU
[2025-03-28 13:34] VITALS: BMI 27.6
--- NOTE | 2025-03-30 07:30 | MHC.SHP ---
Pre-Procedural Eval Section A - 24 Hr Update-Section A only Date of Service: 03/30/25 The patient is an INPATIENT: No The patient has been examined within 24 hours of the surgical procedure. The History & Physical has been completed within 30 days and I have reviewed it.: No Section B - Complete if H&P > 30 days Chief Complaint: gerd,dysphagia,benign neoplasm Relevant Family History (Specify if Yes): No Relevant Social History: Tobacco Use (Former smoker) Present Medications: see Short Stay Collaborative assessment Medical History: Significant History (CAD (coronary artery disease) Cardiac pacemaker in situ CVA (cerebral vascular accident) Gastroesophageal reflux disease HTN (hypertension) Paroxysmal atrial fibrillation Pulmonary nodules Screening for colon cancer Sick sinus syndrome Tubular adenoma of colon) History of Previous Operations: Relevant previous surgery/procedure and date(s) (Hx of endoscopy History of cardiac catheterization (~2011) History of permanent cardiac pacemaker placement (~10/2018) Hx of colonoscopy H/O esophagogastroduodenoscopy History of carpal tunnel release H/O tubal ligation Hx of cholecystectomy) Allergies: Allergies Allergy/AdvReac Type Severity Reaction Status Date / Time Penicillins Allergy Severe ANAPHYLAXIS Verified 02/01/25 11:26 codeine (Codeine) Allergy Intermediate SEVERE Verified 02/01/25 11:26 VOMITING, vomiting ciprofloxacin (CIPROFLOXACIN) Allergy Unknown ANAPHYLAXIS Verified 02/01/25 11:26 neomycin (NEOMYCIN) Allergy Unknown BURNING Verified 02/01/25 11:26 SENSATION Review of Systems Sugical H&P ROS: Negative: Constitution, Cardiovascular, Respiratory and Gastrointestinal Exam Surgical H&P Exam: Normal: Heart, Normal: Lungs and Normal: Extremities Plan Diagnosis/Plan: Unchanged I have reviewed the history and physical and performed a pertinent physical examination on my patient. No changes have occurred unless specified. Time Spent With Patient Time: Total time managing care of this patient today ____ minutes.
[2025-03-30 07:49] VITALS: BMI 27.9
[2025-03-30 08:05] VITALS: BP 153/62; PULSE 68; RESP 15; TEMP 36.6; O2SAT 98
[2025-03-30] MEDS: Lactated Ringers 1,000 ML 50 ML IVCONT (08:23)
--- NOTE | 2025-03-30 10:55 | P.OPN-COLO_ITS ---
Colonoscopy Operative Note Operative Note Date of Service: 03/30/25 Narrative: FLEXIBLE TRANSORAL UPPER GASTROINTESTINAL ENDOSCOPY WITH BIOPSIES AND COLONOSCOPY TILL CECUM WITH BIOPSIES Pre-op diagnosis: Surveillance for colon polyps, Dysphagia, FU of gastric intestinal metaplasia Post-op diagnosis: GERD, gastric polyps, Gastritis, Colon Polyps, Diverticulosis, hemorrhoids Endoscopist:? Florentin Faria MD Anesthesia:?MAC FLEXIBLE TRANSORAL UPPER GASTROINTESTINAL ENDOSCOPY WITH BIOPSIES AND ESOPHAGEAL BALLOON DILATION Consent:?Indications for the procedure and potential complications of bleeding, perforation, reaction to medications and missed diagnosis were discussed with the patient and informed consent was obtained. Instrument:?Olympus GIF H 190 mid size upper endoscope Monitoring: Vital signs and clinical assessment, continuous EKG monitoring, Pulse oximetry, Carbon Dioxide monitoring and blood pressure monitoring were done throughout the procedure. Procedure:?The patient was placed in the left lateral decubitis position and pre-procedure medications were administered and a bite block was placed. The endoscope was inserted into the mouth and advanced under direct vision to the third part of duodenum. A careful inspection was made as the upper endoscope was withdrawn including a retroflexed examination of the proximal stomach; Findings and interventions are described below. Findings: Larynx:? Normal Esophagus: GE junction at 38 cms. No stricture, ring, esophagitis or Owens's Esophageal balloon dilation was performed with a 20 mm (60 F) CRE balloon X 60 sec Stomach: Multiple 1 to 2 cms benign appearing polyps in the gastric body and fundus - biopsied. Mild diffuse gastric erythema. Mapping biopsies were obtained yo FU on gastric intestinal metaplasia. Grade 2 flap valve on retroflexed examination of the cardia. Duodenum: Normal bulb and descending duodenum Intervention: Biopsies and? esophageal balloon dilation as noted above COLONOSCOPY PROCEDURE NOTE Instrument: Olympus PCF H 190 L variable stiffness pediatric colonoscope Monitoring: Vital signs and clinical assessment, intermittent blood pressure monitoring, continuous EKG monitoring, Pulse oximetry and Carbon Dioxide monitoring were done throughout the procedure. Please see anesthesia flowsheet. Colon withdrawl time was 20 minutes. Procedure: The patient was placed in the left lateral decubitis position and pre-procedure medications were administered. After a digital rectal examination of the ano-rectum, the video colonoscope was inserted into the rectum and advanced through the colon to the cecum. The colonoscope was slowly withdrawn in a retrograde panoramic fashion and the colon mucosa was carefully examined including a retroflexed view of the rectum. Findings and interventions are described below. Procedure Difficulty: Colon was long and tortuous and there was some loop formation Findings: Terminal Ileum: Not evaluated Cecum: Normal Ascending Colon: A 3-4 mm sessile polyp - removed with a cold biopsy Transverse Colon: Normal Descending Colon: Moderate diverticulosis Sigmoid Colon: A 3-4 mm diminutive appearing polyp - removed with a cold biopsy. Moderate diverticulosis Rectum: Normal Ano-rectum: Moderate internal hemorrhoids Colon preparation: Good after copious irrigation. Pawling Bowel Preparation Scale Right colon; 2 Transverse colon: 2 Left colon; 2 (0 = Unprepared colon segment with mucosa not seen due to solid stool that cannot be cleared. 1 = Portion of mucosa of the colon segment seen, but other areas of the colon segment not well seen due to staining, residual stool and/or opaque liquid. 2 = Minor amount of residual staining, small fragments of stool and/or opaque liquid, but mucosa of colon segment seen well. 3 = Entire mucosa of colon segment seen well with no residual staining, small fragments of stool or opaque liquid) Impression and Post Procedure Diagnosis: Endoscopy Findings: ESOPHAGUS: No stricture, ring, esophagitis or Owens's Empiric esophageal balloon dilation of LES was performed with a 20 mm (60 F) CRE balloon X 60 sec STOMACH: Mild diffuse gastritis and benign-appearing gastric polyps - mapping biopsies were obtained. DUODENUM: Normal Colonoscopy Findings: Two small polyps were removed Moderate diverticulosis seen in the left colon Moderate hemorrhoids on retroflexed exam. Plan: I will send a letter with biopsy results. Pt has a FU appointment on 08/02/[address] Bienvenido GLOVER to discontinue surveillance colonoscopy given advanced age and comorbidities. A summary of above findings and relevant handouts were given to the patient.
[2025-03-30 11:33] VITALS: BP 146/60; PULSE 70; RESP 16; TEMP 36.6; O2SAT 100
[2025-03-30 11:48] VITALS: BP 143/53; PULSE 63; RESP 15; O2SAT 100
[2025-03-30 12:03] VITALS: BP 151/74; PULSE 70; RESP 12; TEMP 36.3; O2SAT 100
== END 2025-03-30 12:55 | disposition home or self-care (01) ==
PROVIDERS: PCP Family Medicine; Visit Provider Internal Medicine Gastroenterology
PROC: (CPT 45380; principal; 2025-03-30 08:30)
DX: Z12.11 Encounter for screening for malignant neoplasm of colon (principal); Z86.0101 Personal history of adenomatous and serrated colon polyps; D12.2 Benign neoplasm of ascending colon; K63.5 Polyp of colon; K57.30 Diverticulosis of large intestine without perforation or abscess without bleeding; K64.8 Other hemorrhoids; K59.09 Other constipation; R13.14 Dysphagia, pharyngoesophageal phase; K21.9 Gastro-esophageal reflux disease without esophagitis; K31.7 Polyp of stomach and duodenum; K29.50 Unspecified chronic gastritis without bleeding; J45.909 Unspecified asthma, uncomplicated; K76.0 Fatty (change of) liver, not elsewhere classified; I10 Essential (primary) hypertension; I25.10 Atherosclerotic heart disease of native coronary artery without angina pectoris; I49.5 Sick sinus syndrome; Z95.0 Presence of cardiac pacemaker; I48.20 Chronic atrial fibrillation, unspecified; E06.3 Autoimmune thyroiditis; R91.8 Other nonspecific abnormal finding of lung field; Z86.73 Personal history of transient ischemic attack (TIA), and cerebral infarction without residual deficits; Z79.01 Long term (current) use of anticoagulants; Z79.899 Other long term (current) drug therapy; Z88.0 Allergy status to penicillin; Z88.1 Allergy status to other antibiotic agents; Z88.5 Allergy status to narcotic agent; Z90.49 Acquired absence of other specified parts of digestive tract; Z87.891 Personal history of nicotine dependence
CPT/HCPCS: 45380; 43249; 43239; 88305; 88313; 88342; J2003; J2704; J3010

== ENCOUNTER → 2025-03-30 07:34 | Outpatient (BNV) | payer MEDICARE, SELFPAY | PROVIDERS: PCP Family Medicine; Visit Provider Internal Medicine Gastroenterology | DX: Z12.11 Encounter for screening for malignant neoplasm of colon (principal); K63.5 Polyp of colon; K57.90 Diverticulosis of intestine, part unspecified, without perforation or abscess without bleeding; K64.8 Other hemorrhoids; K21.9 Gastro-esophageal reflux disease without esophagitis; K31.7 Polyp of stomach and duodenum; K29.70 Gastritis, unspecified, without bleeding | CPT/HCPCS: 43239; 43249; 45380 ==